=== PATIENT | female | born 1960 | race Caucasian/White ===

== ENCOUNTER → 2017-11-02 10:16 | Outpatient (CLI) | payer BC, SELFPAY ==
[2017-11-06 13:35] LABS: HPV Reflexed? NOT INDICATED
== END ==
PROVIDERS: Visit Provider Obstetrics & Gynecology
DX: Z12.4 Encounter for screening for malignant neoplasm of cervix (principal)
CPT/HCPCS: 88175; G0145

== ENCOUNTER → 2017-12-04 16:06 | Outpatient (CLI) | payer BC, SELFPAY ==
[2017-12-04 18:00] LABS: Free T3 2.5 pg/mL (2.18-3.98); T4 Free Direct 0.88 ng/dL (0.76-1.46); Thyroid Stim Hormone (TSH) 1.51 uIU/mL (0.358-3.74)
== END ==
PROVIDERS: Family Provider Family Medicine; PCP Family Medicine; Visit Provider Nurse Practitioner
DX: R53.82 Chronic fatigue, unspecified (principal); R53.81 Other malaise
CPT/HCPCS: 84439; 84443; 84481

== ENCOUNTER → 2018-11-14 14:28 | Outpatient (CLI) | payer BC, SELFPAY ==
[2017-12-04 14:52] VITALS: BMI 35.6
[2018-11-20 13:28] LABS: HPV HC, High Risk Negative (Negative)
== END ==
PROVIDERS: Visit Provider Obstetrics & Gynecology
DX: Z12.4 Encounter for screening for malignant neoplasm of cervix (principal)
CPT/HCPCS: 87624; 88175; G0145

== ENCOUNTER → 2025-07-04 | Outpatient (CLI) | payer BC, SELFPAY ==
--- OUTSIDE RECORDS SUMMARY | 2025-07-04 08:48 | XMS RPT_ITS | CCD ---
Author Organization [facility] Care Team Providers Care Bobbin Washer Name Role Phone Blanco Araiza MD Primary Care Provider TEODORA SHELTON, BLANCO Primary Care Physician [phone] [place] AMARO Attending Unavailable TEODORA SHELTON, BLANCO Primary Care Unavailable Blanco Araiza MD Primary Care Provider Blacno Araiza MD Primary Care Provider BLANCO ARAIZA Referring Unavailable BLANCO ARAIZA Primary Care Unavailable Haagen [employer].ROSAURA, Myrna Unavailable Suppan [employer].CYBER DEFENSE ANALYST, Sarai A Unavailable BLANCO ARAIZA Primary Care Unavailable MYRNA SHRESTHA Referring Unavailable ROD CABA Referring Unavailable BLANCO ARAIZA Primary Care Unavailable ROD CABA Attending Unavailable BLANCO ARAIZA Primary Care Unavailable BLANCO ARAIZA Primary Care Unavailable SELF Referring Unavailable BLANCO ARAIZA Primary Care Unavailable MYRNA SHRESTHA Attending Unavailable OSCAR HERZOG Attending Unavailable BLANCO ARAIZA Primary Care Unavailable SARAH COLE Referring Unavailable BLANCO ARAIZA Primary Care Unavailable MYRNA SHRESTHA Referring Unavailable BLANCO ARAIZA Primary Care Unavailable MYRNA SHRESTHA Referring Unavailable SARAH COLE Attending Unavailable ROD CABA Referring Unavailable ROD CABA Attending Unavailable BLANCO ARAIZA Primary Care Unavailable Allergies Allergy Classification Reported Allergen(s) Allergy Type Date of Onset Reaction(s) Facility HMG-CoA Reductase Inhibitors (statins) (1 source) atorvastatin Drug Allergy 2 Myalgia [facility] Work Phone: Opioid Agonists (1 source) Codeine Drug Allergy 7 Shortness of Breath [facility] Work Phone: (20 sources) Codeine; Translations: [codeine] Drug Allergy 7 Shortness of Breath, Dyspnea (finding) [facility] Work Phone: (20 sources) atorvastatin; Translations: [ATORVASTATIN] Drug Allergy 2 Myalgia [facility] Work Phone: Medications Current Medications Medication Drug Class(es) Dates Sig (Normalized) Sig (Original) [id number] 200 actuat albuterol 0.09 mg/actuat metered dose inhaler (20 sources) beta2-Adrenergic Agonist Start: 04-20-2021 take 2 puff(s) by inhalation every four hours as needed for wheezing albuterol HFA (PROVENTIL HFA, VENTOLIN HFA) 90 mcg/actuation inhaler INHALE 2 PUFFS INSTRUCTED EVERY 4 HOURS NEEDED FOR WHEEZING/SHORTNESS OF BREATH. 6.7 Each 5 04/20/2021 Active Comment on above: INHALE 2 PUFFS IN STRUCTED EVERY 4 HOURS NEEDED FOR WHEEZING/SHORTNESS OF BREATH. amoxicillin 875 mg oral tablet (1 source) Penicillin-class Antibacterial Start: 06-21-2022 End: 06-28-2022 take 1 tablet by mouth twice daily amoxicillin (AMOXIL) 875 mg tablet Indications: Otitis media with effusion, bilateral Take 1 tablet by mouth twice daily for 7 days. 14 tablet 0 06/21/2022 06/28/2022 Active Comment on above: Take 1 tablet by jayson th twice daily for 7 days. ascorbic acid 226 mg / cuprous oxide 0.8 mg / dl-alpha tocopheryl acetate 200 unt / lutein 5 mg / zinc oxide 34.8 mg oral capsule (1 source) Vitamin C Start: 03-03-2021 take 1 capsule by mouth once daily PreserVision AREDS Lutein oral capsule Dose = 2 cap(s), Oral, qDay, 0 Refill(s) Start Date: 03/03/21 Status: Ordered lisinopril 10 mg oral tablet (20 sources) Angiotensin Converting Enzyme Inhibitor Start: 03-11-2021 End: 11-10-2024 take 1 tablet by mouth once daily lisinopril (PRINIVIL) 10 mg tablet Indications: Essential hypertension Take 1 tablet by mouth once daily. 90 tablet 3 11/10/2024 Active Start: 05-08-2019 lisinopril 5 m g oral tablet Dose : 5 mg = 1 tab(s), Oral, Daily, 0 Refill(s) Start Date: 05/08/19 Status: Ordered Comment on above: Take 1 tablet by jayson once daily. meclizine hydrochloride 12.5 mg oral tablet (4 sources) Antiemetic Start: 11-23-19 End: 01-23-20 take 12.5-25 mg by mouth every six hours as needed meclizine (ANTIVERT) 12.5 mg tab Take 1-2 tablets by mouth every 6 hours as needed (dizziness). 40 tablet 0 11/23/2023 01/23/2024 Discontinued meloxicam 15 mg oral tablet (7 sources) Nonsteroidal Anti-inflammatory Drug Start: 02-11-20 take 1 tablet by mouth once daily meloxicam (MOBIC) 15 mg tablet Indications: Shoulder impingement , Nontraumatic tear of right rotator cuff, unspecified tear extent , Chronic right shoulder pain TAKE 1 TABLET BY MOUTH EVERY DAY 30 tablet 1 02/10/2025 Active Start: 11-26-2024 End: 12-15-2024 take 1 tablet by mouth once daily meloxicam (MOBIC) 15 mg tablet Indications: Shoulder impingement , Nontraumatic tear of right rotator cuff, unspecified tear extent , Chronic right shoulder pain Take 1 tablet by mouth once daily. 30 tablet 1 12/15/2024 Active rosuvastatin calcium 5 mg oral tablet (14 sources) HMG-CoA Reductase Inhibitor Start: 01-23-2024 End: 12-10-2025 take 1 tablet by mouth once daily at bedtime rosuvastatin (CRESTOR) 5 mg tablet Indications: Mixed hyperlipidemia Take 1 tablet by mouth daily at bedtime. 90 tablet 3 12/10/2024 12/10/2025 Active selenium sulfide 25 mg/ml medicated shampoo (20 sources) Start: 03-11-2021 End: 01-23-2024 selenium sulfide 2.5 % lotn Indications: Eczema, unspecified type Apply 1 application to affected area once daily. 118 mL 5 01/23/2024 Active Comment on above: Apply 1 application to affected area once daily. Completed/Discontinued Medications Medication Drug Class(es) Dates Sig (Normalized) Sig (Original) atorvastatin 10 mg oral tablet (3 sources) HMG-CoA Reductase Inhibitor Start: 03-10-2022 End: 09-06-2022 take 1 tablet by mouth once daily at bedtime for hyperlipidemia atorvastatin (LIPITOR) 10 mg tablet Indications: Mixed hyperlipidemia Take 1 tablet by mouth daily at bedtime. For cholesterol. 90 tablet 1 03/10/2022 04/12/2022 Discontinued Comment on above: Take 1 tablet by jayson th daily at bedtime. For cholesterol. 24 hr buPROPion hydrochloride 150 mg extended release oral tablet (20 sources) Aminoketone Start: 01-23-2024 End: 12-10-2024 take 1 tablet by mouth once daily buPROPion XL (WELLBUTRIN XL) 150 mg 24 hr tablet Indications: Depression, unspecified depression type Take 1 tablet by mouth once daily. 90 tablet 3 01/23/2024 12/10/2024 Discontinued (Other) Start: 03-10-2022 End: 09-08-2022 take 1 tablet by mouth once daily buPROPion XL (WELLBUTRIN XL) 150 mg 24 hr tablet Indications: Anxiety Take 1 tablet by mouth once daily. 90 tablet 3 05/08/2022 09/08/2022 Discontinued Comment on above: Take 1 tablet by jayson th once daily. ibuprofen 200 mg oral tablet (1 source) Nonsteroidal Anti-inflammatory Drug End: take 1 tablet by mouth every six hours as needed ibuprofen (MOTRIN) 200 mg tablet Take 200 mg by mouth every 6 hours as needed for Pain (Pt. takes 3-4 tablets when she takes, and takes only once daily). 0 03/10/2022 Discontinued Comment on above: Take 200 mg by mouth every 6 hours as needed for Pain (Pt. takes 3-4 tablets when she takes, and takes only once daily). 24 hr nicotine 0.875 mg/hr transdermal system (12 sources) Cholinergic Nicotinic Agonist Start: End: apply 1 dose transdermal route every twenty-four hours nicotine (NICODERM) 21 mg/24 hr Indications: Tobacco abuse Apply 1 Patch as directed every 24 hours. 30 Patch 0 05/11/2022 09/08/2022 Discontinued Comment on above: Apply 1 Patch as dir ected every 24 hours. predniSONE 10 mg oral tablet (1 source) Start: End: predniSONE (DELTASONE) 10 mg tablet Take 4 tabs daily for 3 days, then 2 tabs daily for 3 days, then 1 tab daily for 3 days with food. 21 tablet 0 03/29/2021 03/10/2022 Discontinued (Course of therapy completed) Comment on above: Take 4 tabs daily fo r 3 days, then 2 tabs daily for 3 days, then 1 tab daily for 3 days with food. tirzepatide (MOUNJARO) 2.5 mg/0.5 mL pen injector (1 source) Start: End: inject 2.5 mg by subcutaneous injection every week tirzepatide (MOUNJARO) 2.5 mg/0.5 mL pen injector Indications: Weight gain , Obesity, Class II, BMI 35-39.9 Inject 2.5 mg subcutaneously one time a week. 2 mL 11 07/16/2023 11/23/2023 Discontinued Problems Active Problems Problem Classification Problem Date Documented Date Episodic/Chronic Allergic reactions (3 sources) Eczema; Translations: [Dermatitis, unspecified] Episodic Anxiety disorders (2 sources) Anxiety; Translations: [Anxiety disorder, unspecified] Chronic Disorders of lipid metabolism (20 sources) Mixed hyperlipidemia; Translations: [Mixed hyperlipidemia] Onset: 02-22-2018 Chronic Essential hypertension (20 sources) Essential hypertension; Translations: [Essential (primary) hypertension] Onset: 11-03-2016 Chronic Menopausal disorders (20 sources) Menopausal symptom; Translations: [Menopausal and female climacteric states] Onset: 09-08-2022 09-08-2022 Chronic Mood disorders (1 source) Depressive disorder; Translations: [Depression, unspecified depression type] 01-23-2024 Chronic Other connective tissue disease (3 sources) Nontraumatic rotator cuff tear; Translations: [Unspecified rotator cuff tear or rupture of right shoulder, not specified as traumatic] 11-17-2024 Episodic Other connective tissue disease (1 source) Tear of right rotator cuff; Translations: [Unspecified rotator cuff tear or rupture of right shoulder, not specified as traumatic] 12-10-2024 Episodic Other nervous system disorders (1 source) Other chronic pain; Translations: [Chronic right shoulder pain] Onset: 11-27-2024 Chronic Other non-traumatic joint disorders (3 sources) Disorder of shoulder; Translations: [Other specified joint disorders, unspecified shoulder] 11-17-2024 Episodic Other non-traumatic joint disorders (2 sources) Chronic pain of right upper limb; Translations: [Pain in right shoulder] 11-17-2024 Episodic Other nutritional; endocrine; and metabolic disorders (1 source) Obese class II; Translations: [Obesity, unspecified] 11-23-2023 Chronic Other screening for suspected conditions (not mental disorders or infectious disease) (20 sources) Patient encounter status; Translations: [Encounter for other screening for malignant neoplasm of breast] Onset: 02-08-2023 Episodic Otitis media and related conditions (1 source) Otitis media; Translations: [Unspecified nonsuppurative otitis media, bilateral] Episodic Residual codes; unclassified (2 sources) Tobacco user; Translations: [Tobacco use] Episodic Unclassified (4 sources) Patient encounter status 02-08-2023 Unclassified (1 source) Chronic pain of right upper limb 11-17-2024 Past or Other Problems Problem Classification Problem Date Documented Date Episodic/Chronic Biliary tract disease (16 sources) Gallstone; Translations: [Calculus of gallbladder without cholecystitis without obstruction] Onset: 05-31-2007 Resolved: 11-03-2016 11-03-2016 Episodic Conditions associated with dizziness or vertigo (4 sources) Dizziness; Translations: [Dizziness and giddiness] Onset: 01-24-2024 11-23-2023 Episodic Malaise and fatigue (1 source) Other fatigue; Translations: [Other fatigue] Onset: 09-01-2024 Episodic Other connective tissue disease (2 sources) Unspecified rotator cuff tear or rupture of right shoulder, not specified as traumatic; Translations: [Tear of right rotator cuff, unspecified tear extent, unspecified whether traumatic] Onset: 11-27-2024 Episodic Other non-traumatic joint disorders (1 source) Other specified joint disorders, unspecified shoulder; Translations: [Shoulder impingement] Onset: 11-27-2024 Episodic Other non-traumatic joint disorders (1 source) Pain in right shoulder; Translations: [Chronic right shoulder pain] Onset: 11-27-2024 Episodic Sprains and strains (20 sources) Sprain of medial collateral ligament of right knee, initial encounter; Translations: [Sprain of medial collateral ligament of knee] Onset: 09-19-2016 Resolved: 02-22-2018 02-22-2018 Episodic Results Test Name Value Interpretation Reference Range Facility [id number] 04-30-2025 [id number] HNO ID: [id number] Author: JAJA HOLT RN Service: ? Author Type: Registered Nurse Type: [id number] Filed: 04/30/2025 14:02 Note Text: Post procedure discharge instructions, copy of report, and appointment reminder if applicable given to patient. All questions answered and patient verbalizes understanding. Jaja Holt RN [facility] Colonoscopyon 04-30-2025 Colonoscopy Nacho [facility] Gastrointestinal Endoscopy Patient Name: Desirae Franklin Procedure Date: 04/30/2025 11:57 AM Date of : 1960 Admit Type: Outpatient Age: 64 Gender: Female Note Status: Finalized Procedure: Colonoscopy Indications: Screening for colorectal malignant neoplasm Providers: Oscar Herzog MD Patient Profile: This is a 64 year old female. Refer to note in patient chart for documentation of history and physical. Last Colonoscopy: May 2015. Referring Physician: Sarah Cole (Referring MD) Medicines: Fentanyl 150 micrograms IV, Midazolam 8 mg IV, Diphenhydramine 50 mg IV Complications: No immediate complications. Estimated blood loss: None. Requesting Provider: Procedure: Pre-Anesthesia Assessment: - Prior to the procedure, a History and Physical was performed, and patient medications and allergies were reviewed. The patient's tolerance of previous anesthesia was also reviewed. The risks and benefits of the procedure and the sedation options and risks were discussed with the patient. All questions were answered, and informed consent was obtained. Prior Anticoagulants: The patient has taken no anticoagulant or antiplatelet agents. ASA Grade Assessment: III - A patient with severe systemic disease. After reviewing the risks and benefits, the patient was deemed in satisfactory condition to undergo the procedure. After I obtained informed consent, the scope was passed under direct vision. Throughout the procedure, the patient's blood pressure, pulse, and oxygen saturations were monitored continuously.The colonoscopy was performed with moderate difficulty due to a tortuous colon. Successful completion of the procedure was aided by increasing the dose of sedation medication. The quality of the bowel preparation was fair. The ileocecal valve, appendiceal orifice, and rectum were photographed. The Colonoscope was introduced through the anus and advanced to the cecum, identified by appendiceal orifice and ileocecal valve. The patient tolerated the procedure poorly due to the patient's excessive discomfort during the procedure. Moderate Sedation: The administration of moderate sedation was initiated at 12:10. Moderate (conscious) sedation was personally administered by the endoscopist. The following parameters were monitored: oxygen saturation, heart rate, blood pressure, respiratory rate, EKG, adequacy of pulmonary ventilation, and response to care. Total physician intraservice time was 32 minutes. Findings: The perianal and digital rectal examinations were normal. Non-bleeding internal hemorrhoids were found during retroflexion. The hemorrhoids were mild and small. The exam was otherwise without abnormality. Impression: - Preparation of the colon was fair. - Non-bleeding internal hemorrhoids. - The examination was otherwise normal. - No specimens collected. Recommendation: - Patient has a contact number available for emergencies. The signs and symptoms of potential delayed complications were discussed with the patient. Return to normal activities tomorrow. Written discharge instructions were provided to the patient. - Resume previous diet. - Continue present medications. - Repeat colonoscopy in 10 years for screening purposes. - Return to primary care physician PRN. Procedure Code(s): --- Professional --- 27604, Colonoscopy, flexible; diagnostic, including collection of specimen(s) by brushing or washing, when performed (separate procedure) G0500, Moderate sedation services provided by the same physician or other qualified health day care supervisor performing a gastrointestinal endoscopic service that sedation supports, requiring the presence of an independent trained observer to assist in the monitoring of the patient's level of consciousness and physiological status; initial 15 minutes of intra-service time; patient age 5 years or older (additional time may be reported with 31782, as appropriate) 37992, Moderate sedation; each additional 15 minutes intraservice time Diagnosis Code(s): --- Professional --- Z12.11, Encounter for screening for malignant neoplasm of colon K64.8, Other hemorrhoids CPT copyright 2020 [employer]. All rights reserved. The codes documented in this report are preliminary and upon collections rep review may be revised to meet current compliance requirements. Attending Participation: I personally performed the entire procedure. Scope In: 12:16:36 PM Scope Out: 12:42:12 PM MD Oscar Patterson MD 04/30/2025 12:47:57 PM This report has been signed electronically by Oscar Herzog MD Number of Addenda: 0 Note Initiated On: 04/30/2025 11:57 AM Estimated Blood Loss: Estimated blood loss: none. [facility] HISTORY PHYSICALon HISTORY PHYSICAL HNO ID: [id number] Author: OSCAR HERZOG MD Service: General Surgery Author Type: Physician Type: H&P Filed: 04/30/2025 12:01 Note Text: HISTORY AND PHYSICAL Desirae Franklin : 1960 REFERRING PHYSICIAN: Myrna Shrestha [address] [facility] [address] CHIEF COMPLAINT: Patient presents with: Consult: Due for repeat colonoscopy HPI: Desirae is a 64 year old female referred for endoscopy. Desirae notes due for screening colonoscopy. Desirae denies abdominal pain. Desirae denies diarrhea. Desirae denies constipation. Desirae denies a change in bowel habits. Desirae denies melena. Desirae denies bright red blood per rectum. Desirae denies family history of colon issues. Desirae notes heartburn. -using Tums with relief Desirae denies dysphagia. Desirae's medical history is significant for HLD,HTN,obesity and anxiety. She denies CP, SOB, dizziness, palpitations, syncope, edema, recent hospitalizations Desirae has undergone prior endoscopy. Last colonoscopy was 05/[address] Huffman at [facility]. Sedation: Midazolam 8 mg IV, Fentanyl 100 micrograms IV Impression: - The entire examined colon is normal on direct and retroflexion views. - No specimens collected. CURRENT MEDICATIONS Current Outpatient Medications Medication Sig rosuvastatin (CRESTOR) 5 mg tablet Take 1 tablet by mouth daily at bedtime. lisinopril (PRINIVIL) 10 mg tablet Take 1 tablet by mouth once daily. albuterol HFA (PROVENTIL HFA, VENTOLIN HFA) 90 mcg/actuation inhaler INHALE 2 PUFFS INSTRUCTED EVERY 4 HOURS NEEDED FOR WHEEZING/SHORTNESS OF BREATH. peg 3350-Electrolytes (GOLYTELY) 236-22.74-6.74 -5.86 gram suspension Refer to printed prep instructions from your provider. meloxicam (MOBIC) 15 mg tablet TAKE 1 TABLET BY MOUTH EVERY DAY selenium sulfide 2.5 % lotn Apply 1 application to affected area once daily. No current facility-administered medications for this visit. ALLERGIES: Atorvastatin and Codeine PAST MEDICAL HISTORY PAST MEDICAL HISTORY Diagnosis Date Anxiety Essential (primary) hypertension Essential hypertension 11/03/2016 GERD (gastroesophageal reflux disease) Mixed hyperlipidemia NEGATIVE MEDICAL HISTORY Snoring Tear of right rotator cuff, unspecified tear extent, unspecified whether traumatic Tobacco use disorder PAST SURGICAL HISTORY PAST SURGICAL HISTORY Procedure Laterality Date COLONOSCOPY FLX DX W/COLLJ SPEC WHEN PFRMD 05/21/15 normal - 10 year follow up LAPS SURG CHOLECYSTECTOMY W/CHOLANGIOGRAPHY 05/04/2007 Normal IOC OVARIAN CYSTECTOMY 1994 ? uterine fibroid REDUCTION OF LARGE BREAST 2001 Breast reduction - bilateral FAMILY HISTORY FAMILY HISTORY Problem Relation Age of Onset Cancer Maternal Grandmother lung Diabetes Father Diabetes Maternal Grandfather Ischemic Heart Disease Father [SOCIAL HISTORY] [SOCIAL HISTORY] Social History Tobacco Use Smoking status: Every Day Current packs/day: 0.50 Average packs/day: 0.5 packs/day for 25.0 years (12.5 ttl pk-yrs) Types: Cigarettes Smokeless tobacco: Never Tobacco comments: quit for 2 years, started back up 5 years ago. 05/23/19 Vaping Use Vaping status: Never Used Substance Use Topics Alcohol use: Yes Alcohol/week: 3.0 standard drinks of alcohol Types: 3 Glasses of Wine (5oz) per week Drug use: No REVIEW OF SYMPTOMS: REVIEW OF SYSTEMS: General: The patient denies fatigue, denies weight loss, + weight gain, denies feeling hot, and feelings of cold. Eyes: The patient denies glaucoma, + eye injury/surgery, + glasses or contacts. Ear/Nose/Throat: The patient + allergies, denies hayfever, denies ear infections, and denies bloody noses. Cardiovascular: The patient denies chest pain, denies heart disease, + high blood pressure, + high cholesterol, and denies poor circulation. Respiratory: The patient denies tuberculosis, denies pneumonia, denies frequent cough, denies shortness of breath, and denies coughing up blood. Gastrointestinal: The patient denies difficulty swallowing, denies acid reflux, denies ulcers, denies jaundice/hepatitis, denies gallbladder problems, denies vomiting, denies black or tarry stools, denies hemorrhoids, denies bleeding from rectum, denies diverticulitis, denies constipation, denies diarrhea, denies loss of stool control, and denies hernias. Kidney/Bladder: The patient denies kidney stones, denies urine infections, and denies bloody urine. Skin: The patient denies a history of skin cancer, denies bleeding/changing moles, and denies a history of skin rash. Neurologic: The patient denies a history of epilepsy/convulsions, denies headaches, denies head/spinal injuries, and denies stroke/TIA. Psychiatric: The patient denies psychiatric medications, denies depression, and denies voices. Endocrine: The patient denies thyroid disorders, denies diabetes, and denies hormonal problems. Hematologic: The patient d (more content not included)... [facility] DANISH SCREENING W TOMOon 04-20 DANISH SCREENING W MATT * * *Final Report* * * DATE OF EXAM: Apr 20 2025 10:26AM W [id number] - DANISH SCREENING W MATT / PROCEDURE REASON: Visit for screening mammogram * * * * Physician Interpretation * * * * RESULT: [place] [address] #[id number] - DANISH SCREENING W MATT HISTORY: 64 year-old patient presents for screening. Patient is asymptomatic in both breasts. Patient states no personal history of breast cancer. The patient has a family history of breast cancer. COMPARISON STUDIES: The present examination has been compared to prior imaging studies dated 03/17/2021 (mammogram), 03/31/2022 (mammogram), 04/02/2023 (mammogram) and 04/04/2024 (mammogram). MAMMOGRAM TECHNIQUE: The study was acquired using full field digital technology and interpreted from soft copy. Digital Breast Tomosynthesis (DBT) images were obtained and used to assist in the interpretation of this examination. MAMMOGRAM FINDINGS: There are scattered areas of fibroglandular density. There are post-reduction changes in both breasts. There are no significant interval changes. No suspicious masses, calcifications or other abnormalities are seen in either breast. IMPRESSION: There is no mammographic evidence of malignancy. Routine screening mammogram is recommended. Annual mammogram will be due in 1 year. BI-RADS Category 2: Benign RISK: Based on the Tyrer-Cuzick (TC) risk assessment model, this patient has a 8.2% lifetime risk of developing breast cancer, meaning they are at average risk for developing breast cancer. However, this is only an estimate based on available history provided on the patient's questionnaire. We encourage all patients to talk with their providers about these results, further recommendations for managing breast health, and appropriate supplemental screening options if the patient has dense breast tissue. Interpreting Radiologist: Yudi Reyes M.D. Electronically signed on: 04/25/2025 Biomedical Engineering Professor: YULIYA Transcribe Date/Time: Apr 20 2025 10:08A Dictated by: YUDI REYES MD This examination was interpreted and the report reviewed and electronically signed by: YUDI REYES MD on Apr 25 2025 10:10AM EST [id number] [facility] CNOVon 03-26-2025 CNOV Office Visit (GENSWS ) DESIRAE FRANKLIN ([id number]) 1960 F Date Time Provider Department 03/26/25 1:00 PM SARAH COLE GENDENNISS During your visit today, we recorded the following information about you: Pulse Respiration Blood pressure Weight 70/minute 14/minute 145/85 91.2 kg Sarah Cole APRN.CNP 03/26/2025 1:36 PM Signed HISTORY AND PHYSICAL Desirae Franklin : 1960 REFERRING PHYSICIAN: Myrna Flores0 [facility] [address] CHIEF COMPLAINT: Patient presents with: Consult: Due for repeat colonoscopy HPI: Desirae is a 64 year old female referred for endoscopy. Desirae notes due for screening colonoscopy. Desirae denies abdominal pain. Desirae denies diarrhea. Desirae denies constipation. Desirae denies a change in bowel habits. Desirae denies melena. Desirae denies bright red blood per rectum. Desirae denies family history of colon issues. Desirae notes heartburn. -using Tums with relief Desirae denies dysphagia. Desirae's medical history is significant for HLD,HTN,obesity and anxiety. She denies CP, SOB, dizziness, palpitations, syncope, edema, recent hospitalizations Desirae has undergone prior endoscopy. Last colonoscopy was 05/[address] Huffman at [facility]. Sedation: Midazolam 8 mg IV, Fentanyl 100 micrograms IV Impression: - The entire examined colon is normal on direct and retroflexion views. - No specimens collected. Current Outpatient Medications Medication Sig rosuvastatin (CRESTOR) 5 mg tablet Take 1 tablet by mouth daily at bedtime. lisinopril (PRINIVIL) 10 mg tablet Take 1 tablet by mouth once daily. albuterol HFA (PROVENTIL HFA, VENTOLIN HFA) 90 mcg/actuation inhaler INHALE 2 PUFFS INSTRUCTED EVERY 4 HOURS NEEDED FOR WHEEZING/SHORTNESS OF BREATH. peg 3350-Electrolytes (GOLYTELY) 236-22.74-6.74 -5.86 gram suspension Refer to printed prep instructions from your provider. meloxicam (MOBIC) 15 mg tablet TAKE 1 TABLET BY MOUTH EVERY DAY selenium sulfide 2.5 % lotn Apply 1 application to affected area once daily. No current facility-administered medications for this visit. ALLERGIES: Atorvastatin and Codeine PAST MEDICAL HISTORY Diagnosis Date Anxiety Essential (primary) hypertension Essential hypertension 11/03/2016 GERD (gastroesophageal reflux disease) Mixed hyperlipidemia NEGATIVE MEDICAL HISTORY Snoring Tear of right rotator cuff, unspecified tear extent, unspecified whether traumatic Tobacco use disorder PAST SURGICAL HISTORY Procedure Laterality Date COLONOSCOPY FLX DX W/COLLJ SPEC WHEN PFRMD 05/21/15 normal - 10 year follow up LAPS SURG CHOLECYSTECTOMY W/CHOLANGIOGRAPHY 05/04/2007 Normal [facility] OVARIAN CYSTECTOMY 1994 ? uterine fibroid REDUCTION OF LARGE BREAST 2001 Breast reduction - bilateral FAMILY HISTORY Problem Relation Age of Onset Cancer Maternal Grandmother lung Diabetes Father Diabetes Maternal Grandfather Ischemic Heart Disease Father SOCIAL HISTORY[1] REVIEW OF SYMPTOMS: REVIEW OF SYSTEMS: General: The patient denies fatigue, denies weight loss, + weight gain, denies feeling hot, and feelings of cold. Eyes: The patient denies glaucoma, + eye injury/surgery, + glasses or contacts. Ear/Nose/Throat: The patient + allergies, denies hayfever, denies ear infections, and denies bloody noses. Cardiovascular: The patient denies chest pain, denies heart disease, + high blood pressure, + high cholesterol, and denies poor circulation. Respiratory: The patient denies tuberculosis, denies pneumonia, denies frequent cough, denies shortness of breath, and denies coughing up blood. Gastrointestinal: The patient denies difficulty swallowing, denies acid reflux, denies ulcers, denies jaundice/hepatitis, denies gallbladder problems, denies vomiting, denies black or tarry stools, denies hemorrhoids, denies bleeding from rectum, denies diverticulitis, denies constipation, denies diarrhea, denies loss of stool control, and denies hernias. Kidney/Bladder: The patient denies kidney stones, denies urine infections, and denies bloody urine. Skin: The patient denies a history of skin cancer, denies bleeding/changing moles, and denies a history of skin rash. Neurologic: The patient denies a history of epilepsy/convulsions, denies headaches, denies head/spinal injuries, and denies stroke/TIA. Psychiatric: The patient denies psychiatric medications, denies depression, and denies voices. Endocrine: The patient denies thyroid disorders, denies diabetes, and denies hormonal problems. Hematologic: The patient denies a history of bruising, denies bleeding, and denies anemia. Infections: The patient denies a history of measles and mumps, denies rheumatic fever, and denies sexually transmitted diseases. Musculoskeletal: The patient denies back pain/injury, denies back problems, denies sciati (more content not included)... Normal [facility] CNPMelisa 03-10-2025 CNPN Telephone ([employer]) DESIRAE FRANKLIN ([id number]) 1960 F Date Time Provider Department 03/10/25 SARAH COLE [employer] During your visit today, we recorded the following information about you: Sarah Cole APRN.CYBER DEFENSE ANALYST 03/10/2025 3:02 PM Signed Please reschedule patient. I am out of the office during her current appt time. Thank you, Sarah Cole APRN.CYBER DEFENSE ANALYST Allergies As of Date: 03/10/2025 Noted Allergy Reaction ATORVASTATIN 04/26/2022 17 - Myalgia CODEINE 05/31/2007 12 - Shortness of Breath Date Reviewed: 12/30/2024 Reviewed by: Rod Caba MD - Fully Assessed Reason for Visit: Appointment [186] Prescriptions as of 03/13/2025 - meloxicam (MOBIC) 15 mg tablet TAKE 1 TABLET BY MOUTH EVERY DAY - rosuvastatin (CRESTOR) 5 mg tablet Take 1 tablet by mouth daily at bedtime. - lisinopril (PRINIVIL) 10 mg tablet Take 1 tablet by mouth once daily. - selenium sulfide 2.5 % lotn Apply 1 application to affected area once daily. - albuterol HFA (PROVENTIL HFA, VENTOLIN HFA) 90 mcg/actuation inhaler INHALE 2 PUFFS INSTRUCTED EVERY 4 HOURS NEEDED FOR WHEEZING/SHORTNESS OF BREATH. Problem List As Of Date 03/10/2025 Noted Resolved Calculus of gallbladder without mention of chol*05/31/2007 11/03/2016 Sprain of medial collateral ligament of right k*09/19/2016 02/22/2018 Sprain of medial collateral ligament of left kn*09/19/2016 02/22/2018 Essential hypertension [I10] 11/03/2016 Mixed hyperlipidemia [E78.2] 02/22/2018 Menopausal symptom [N95.1] 09/08/2022 Breast cancer screening [Z12.39] 07/16/2023 Diagnosed: 07/16/2023 Encounter Status:Closed by SARAH COLE on 03/13/25 [facility] Ratna 12-15-2024 CNOV Office Visit (ORTHWS ) DESIRAE FRANKLIN ([id number]) 1960 F Date Time Provider Department 12/15/24 11:30 AM ROD CABA During your visit today, we recorded the following information about you: Rod Cbaa MD 12/31/2024 12:07 AM Signed Rod Caba MD Department of Orthopaedics Orthopaedics [facility] [address] Dept: [phone] Dept December 31, 2024 CHIEF COMPLAINT: Results - Mri of the Right Shoulder HPI Desirae Franklin is a 63-year-old female presenting for follow-up on a partial rotator cuff tear. Desirae reports persistent shoulder pain due to a partial rotator cuff tear, which has been ongoing for over a decade. She recently resumed taking meloxicam 3 weeks ago, which was initially prescribed 2.5 years ago for foot pain, and notes significant improvement in her shoulder pain since restarting the medication. She denies any new symptoms or changes in her condition. ASSESSMENT: M25.819 Shoulder impingement (primary encounter diagnosis) M75.101 Nontraumatic tear of right rotator cuff, unspecified tear extent M25.511, G89.29 Chronic right shoulder pain 1. Shoulder impingement (M25.819) Nontraumatic tear of right rotator cuff, unspecified tear extent (M75.101) Chronic right shoulder pain (M25.511) MRI reveals a partial thickness tear of the rotator cuff with associated inflammation. No significant progression in arthritis or bone spurs. No evidence of muscle atrophy. Patient experiences chronic shoulder pain, currently managed with meloxicam, which has provided relief. - Continue meloxicam daily; transmitted a new prescription to [facility]. - Discussed potential for corticosteroid injection if pain exacerbates. - Educated patient on the nature of the partial tear and the minimal impact of bone spurs on current symptoms. 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 - Ordered standing lab work to monitor renal function and CBC in 3-4 months if meloxicam is used long-term; patient to repeat labs every 6 months thereafter. - Patient understands and agrees with the treatment plan. Will continue to monitor patient for Shoulder impingement (primary encounter diagnosis) Nontraumatic tear of right rotator cuff, unspecified tear extent Chronic right shoulder pain, patient to schedule visit as per follow up discussed. OBJECTIVE: Ms. Desirae Franklin is a pleasant 64 year old in no apparent distress. Gen:LMP 08/23/2016 nl development, obese, no deformities ENT: Normocephalic, normal hearing, moist mucosa CV: Pulses:Radial= 2+ and symmetric, capillary refill < 2 secs, no peripheral edema/varicosities Skin: no rash, bruising or lesions. Good turgor. Psych: cooperative and appropriate, alert and oriented x 3, good mood and affect. Musculoskeletal: Supple range of motion of the cervical spine without pain. Spurling signs are negative. No atrophy of the deltoid and shoulder musculature. Right shoulder is nontender to palpation over the SC joint, clavicle and AC joint. mild tenderness to palpation over the posterior shoulder, Positive tenderness to palpation over the anterior lateral corner of the shoulder and greater tuberosity. nonpainful at the bicipital groove and coracoid. Active range of motion is 130 of forward elevation, 80 external rotation, and internal rotation to the low lumbar. Passive range of motion is symmetrical, limited by some pain, respectively, respectively. No laxity with anterior and posterior stress. Positive Neer and Maldonado impingement signs. 4/5 strength with supraspinatus, infraspinatus and subscapularis. Sensation is intact in the axillary, radial, median and ulnar nerve distribution IMAGING: Labs: Tests: Imaging: - Shoulder MRI: Partial-thickness rotator cuff tear with mild arthritic changes and a small subacromial spur; no muscle atrophy observed. Stable compared to previous imaging. - Shoulder MRI: Partial-thickness rotator cuff tear. Supporting Subjective Information Below: Past Medical History: PAST MEDICAL HISTORY Diagnosis Date Anxiety Essential (primary) hypertension Essential hypertension 11/03/2016 GERD (gastroesophageal reflux disease) Mixed hyperlipidemia NEGATIVE MEDICAL HISTORY Snoring Tear of right rotator cuff, unspecified tear extent, unspecified whether traumatic Tobacco use disorder Past Surgical History: PAST SURGICAL HISTORY Procedure Laterality Date COLONOSCOPY FLX DX W/COLLJ SPEC WHEN PFRMD 05/21/15 normal - 10 year follow up LAPS SURG CHOLECYSTECTOMY W/CHOLANGIOGRAPHY 05/04/2007 Normal [facility] OVARIAN CYSTECTOMY 1994 ? uterine fibroid REDUCTION OF LARGE BREAST 2002 Breast reduction - bilateral Family History: FAMILY HISTORY Problem Relation Age of Onset Cancer Maternal Grand (more content not included)... Normal [facility] Roberto 12-12-2024 CNPN Telephone ([employer]) NOEMIDESIRAE L ([id number]) 1960 F Date Time Provider Department 12/12/24 SARAH COLE GENS During your visit today, we recorded the following information about you: Jane Alamo LPN 12/12/2024 11:02 AM Signed Called patient. NO answer- left voicemail and [employer] message sent. ROMULO Goodman Stephanie 12/12/2024 4:43 PM Signed Spoke with patient and rescheduled to 03/27/25. Allergies As of Date: 12/12/2024 Noted Allergy Reaction ATORVASTATIN 04/26/2022 17 - Myalgia CODEINE 05/31/2007 12 - Shortness of Breath Date Reviewed: 12/10/2024 Reviewed by: Kang Grace LPN - Fully Assessed Reason for Visit: Appointment [186] Prescriptions as of 12/12/2024 - meloxicam (MOBIC) 15 mg tablet - rosuvastatin (CRESTOR) 5 mg tablet Take 1 tablet by mouth daily at bedtime. - lisinopril (PRINIVIL) 10 mg tablet Take 1 tablet by mouth once daily. - selenium sulfide 2.5 % lotn Apply 1 application to affected area once daily. - albuterol HFA (PROVENTIL HFA, VENTOLIN HFA) 90 mcg/actuation inhaler INHALE 2 PUFFS INSTRUCTED EVERY 4 HOURS NEEDED FOR WHEEZING/SHORTNESS OF BREATH. Problem List As Of Date 12/12/2024 Noted Resolved Calculus of gallbladder without mention of chol*05/31/2007 11/03/2016 Sprain of medial collateral ligament of right k*09/19/2016 02/22/2018 Sprain of medial collateral ligament of left kn*09/19/2016 02/22/2018 Essential hypertension [I10] 11/03/2016 Mixed hyperlipidemia [E78.2] 02/22/2018 Menopausal symptom [N95.1] 09/08/2022 Breast cancer screening [Z12.39] 07/16/2023 Diagnosed: 07/16/2023 Encounter Status:Closed by TRACY EATON on 12/12/24 Normal [facility] Lipid 1996 panelon 5 Cholesterol [Mass/Vol] 143 mg/dL Normal <200 [facility] Comment on above: Order Comment: Speci men Type: BLOOD SPECIMENOrdering Facility: [facility] Address: [address] [place] [address] Result Comment: <200 mg/dL, Desirable 200-239 mg/dL, Borderline high >239 mg/dL, High Performed By: #### 2 4331-1 ####[facility] LABIA [id number] [address] STATES OF [facility] Cholesterol in HDL [Mass/Vol] 47 mg/dL Normal >39 [facility] Comment on above: Order Comment: Amrita flores Type: BLOOD SPECIMENOrdering Facility: [facility] Address: [address] [place] [address] Result Comment: 40-5 9 mg/dL, Acceptable >59 mg/dL, High: Negative risk factor for coronary heart disease <40 mg/dL, Low: Positive risk factor for coronary heart disease Performed By: #### 2 4331-1 ####[facility]IA [id number] [address] [place] Cholesterol in LDL [Mass/Vol] 77 mg/dL Normal <100 [facility] Comment on above: Order Comment: Amrita flores Type: BLOOD SPECIMENOrdering Facility: [facility] Address: [address] [place] [address] Result Comment: <100 mg/dL, Optimal 100-129 mg/dL, Near optimal/above optimal 130-159 mg/dL, Borderline high 160-189 mg/dL, High >189 mg/dL, Very high Secondary prevention optimal LDL Cholesterol levels are recommended to be <70 mg/dL LDL cholesterol is calculated using the Roman-NIH equation. Performed By: #### 2 4331-1 ####[facility] [id number] [place] [address] [place] Cholesterol in LDL/Cholesterol in HDL [Mass ratio] 1.64 {ratio} Normal <2.54 [facility] Comment on above: Order Comment: Amrita flores Type: BLOOD SPECIMENOrdering Facility: [facility] Address: [address] [place] [address] Result Comment: Refe brigidce: 1. National Cholesterol Education Program ATP III Guideline At-A-Glance Quick Desk Reference: National Heart, Lung, and Blood [place]. National Institutes of Health. 2001: NIH Publication No. 01-3305. 2. An International Atherosclerosis Society position paper: global recommendations for the management of dyslipidemia: executive summary, Atherosclerosis. 2014: 232(2):410-413. Performed By: #### 2 4331-1 ####[facility]IA [id number] [place] [address] [place] Cholesterol in VLDL [Mass/Vol] 16 mg/dL Normal <30 [facility] Comment on above: Order Comment: Amrita flores Type: BLOOD SPECIMENOrdering Facility: [facility] Address: [address] [place] [address] Performed By: #### 2 4331-1 ####[facility] [id number] [place] [id number] [place] Cholesterol non HDL [Mass/Vol] 96 mg/dL Normal <130 [facility] Comment on above: Order Comment: Amrita sandra Type: BLOOD SPECIMENOrdering Facility: [facility] Address: [address] [place] [address] Result Comment: <130 mg/dL, Optimal 130-159 mg/dL, Near optimal/above optimal 160-189 mg/dL, Borderline high 190-219 mg/dL, High >219 mg/dL, Very high Secondary prevention optimal non HDL Cholesterol levels are recommended to be <100 mg/dL Performed By: #### 2 4331-1 ####[facility] LABCLIA [id number] [address] OF [place] Cholesterol.total/C holesterol in HDL [Mass ratio] 3.04 {ratio} Normal <5.10 [facility] Comment on above: Order Comment: Speci men Type: BLOOD SPECIMENOrdering Facility: [facility] Address: [address] [place] [address] Performed By: #### 2 4331-1 ####[facility]IA [id number] [address], [facility] FASTING TIME 12 hrs Normal [facility] Comment on above: Order Comment: Speci men Type: BLOOD SPECIMENOrdering Facility: [facility] Address: [address] [place] [address] Performed By: #### 2 4331-1 ####[facility] [id number] [address], [facility] [place] Triglyceride [Mass/Vol] 104 mg/dL Normal <150 [facility] Comment on above: Order Comment: Speci men Type: BLOOD SPECIMENOrdering Facility: [facility] Address: [address] [place] [address] Result Comment: <150 mg/dL, Normal 150-199 mg/dL, Borderline high 200-499 mg/dL, High >499 mg/dL, Very high Performed By: #### 2 4331-1 ####[facility]IA [id number] [address], [facility] [place] CNOVon 12-10-2024 CNOV Office Visit (FAMPWS ) DESIRAE FRANKLIN ([id number]) 1960 F Date Time Provider Department 12/10/24 9:20 AM MYRNA SHRESTHA During your visit today, we recorded the following information about you: Pulse Respiration Blood pressure Weight 65/minute 16/minute 130/88 89.8 kg Height 1.56 m Myrna Shrestha APRN.CNP 12/10/2024 10:00 AM Signed - Continue taking lisinopril each morning as prescribed. - Continue rosuvastatin (Crestor) for cholesterol; a refill has been sent to your pharmacy. - Start vitamin D 1,000 units by mouth once daily; during months with limited sun exposure you may increase to two tablets a day. - Complete a fasting lipid panel (cholesterol blood test); the lab order is in your chart--plan to fast if possible. - schedule w/ gen surg. - Schedule your next screening mammogram around April; the order is in your chart. - Get shingles vaccine. Health Promotion: - Eat healthy -- go to [employer] SRO.gov to get started - Have a yearly physical - Mammogram yearly after age 40 - Get at least 30 minutes of physical activity daily - Get at least 7 to 8 hours of sleep each night - Reach and maintain a healthy weight - Get help to quit or don't start smoking - Limit alcohol use to one drink or less - Do not use illegal drugs or misuse prescription drugs - Wear a helmet when riding a bike and wear protective gear for sports - Wear a seatbelt in cars and not text and drive - Wear sunscreen Myrna Shrestha APRN.CYBER DEFENSE ANALYST 12/10/2024 5:44 PM Signed This is a 63 year old female who presents today with: Desirae is a 63-year-old female with a history of HTN, hyperlipidemia, and anxiety, presenting for medication refills physical exam. HISTORY OF PRESENT ILLNESS: Medication Refills: - Missed appointment with Dr. Araiza in July due to personal circumstances. - Currently taking lisinopril and rosuvastatin. - Recently resumed meloxicam use. - Discontinued Wellbutrin. - Has an albuterol inhaler but has not used it in years. Shoulder Pain: - Chronic shoulder pain with a history of torn rotator cuff, bursitis, and bone spurs diagnosed 14 years ago. - Recent MRI performed last week; awaiting results. - Pain is severe enough to limit work to 3-4 hours a day. - Receives cortisone injections in the shoulder. - Pain disrupts sleep; Desirae is a side sleeper. - Following w/ ortho. Weight Management: - Currently 50 lbs overweight. - Previously took phentermine for weight loss but discontinued due to insomnia. - Tried compounded GLP-1 agonists for 3 weeks but stopped due to regulatory changes. - Reports fatigue attributed to being overweight. Tobacco Use: - Smokes approximately half a pack of cigarettes per day. - Previously quit for 2.5 years; plans to quit again by birthday on December [birth year]. - Expresses dislike for the smell of smoke on clothes and hands. Gastroesophageal Reflux Disease: - Experiences heartburn and indigestion frequently. - Uses Tums once or twice a week with immediate relief. - Sleeps with head elevated to manage symptoms. Anxiety: - History of anxiety, previously managed with Wellbutrin. - Reports increased irritability since discontinuing Wellbutrin, but no uncontrolled anxiety/depression. - Experiences dyspnea, attributed to smoking and anxiety. Preventive Care: - Last colonoscopy in May 2015. - Last mammogram on April 04 of the previous year. - Menopausal; experiences heat intolerance. - No history of abnormal Pap smears in the last 20 years. PAST MEDICAL HISTORY: PAST MEDICAL HISTORY Diagnosis Date Essential hypertension 11/03/2016 NEGATIVE MEDICAL HISTORY Snoring PAST SURGICAL HISTORY Procedure Laterality Date COLONOSCOPY FLX DX W/COLLJ SPEC WHEN PFRMD 05/21/15 normal - 10 year follow up LAPS SURG CHOLECYSTECTOMY W/CHOLANGIOGRAPHY 05/04/2007 Normal [facility] OVARIAN CYSTECTOMY 1994 ? uterine fibroid REDUCTION OF LARGE BREAST 2001 Breast reduction - bilateral ALLERGIES Atorvastatin and Codeine MEDICATIONS Current Outpatient Medications Medication Sig meloxicam (MOBIC) 15 mg tablet rosuvastatin (CRESTOR) 5 mg tablet Take 1 tablet by mouth daily at bedtime. lisinopril (PRINIVIL) 10 mg tablet Take 1 tablet by mouth once daily. selenium sulfide 2.5 % lotn Apply 1 application to affected area once daily. albuterol HFA (PROVENTIL HFA, VENTOLIN HFA) 90 mcg/actuation inhaler INHALE 2 PUFFS INSTRUCTED EVERY 4 HOURS NEEDED FOR WHEEZING/SHORTNESS OF BREATH. No current facility-administered medications for this visit. FAMILY HISTORY Problem Relation Age of Onset Cancer Maternal Grandmother lung Diabetes Father Diabetes Maternal Grandfather Ischemic Heart Disease Father Social History Tobacco Use Smoking status: Every Day Current packs/day: 0.50 Average packs/day: 0.5 packs/day for 25.0 years (12.5 ttl pk- (more content not included)... Normal [facility] MRI SHOULDER WO IVCON RTon 0 11-27-2024 MRI SHOULDER WO IVCON RT * * *Final Report* * * DATE OF EXAM: Nov 27 2024 8:40AM WR 0240 - MRI SHOULDER WO IVCON RT / PROCEDURE REASON: multiple diagnoses * * * * Physician Interpretation * * * * EXAMINATION: MRI SHOULDER WO IVCON RT HISTORY: Right shoulder pain. Impingement. TECHNIQUE: Routine non-contrast MRI of the shoulder. MQ: MRS_[id number] COMPARISON: None RESULT: TENDONS: Rotator cuff tendons: -Supraspinatus: High grade articular surface partial thickness (more than 50%) tear involving nearly the entire width of the tendon -Infraspinatus: Interstitial tearing at the myotendinous junction . -Subscapularis: Intact with tendinosis -Teres Minor: Intact tendon Biceps (Long head) Tendon: Intact , with normal course MUSCLES: Rotator cuff muscles: -Supraspinatus: Preserved bulk and no fatty changes. -Infraspinatus: Preserved bulk and no fatty changes. -Subscapularis: Preserved bulk and no fatty changes. -Teres Minor: Preserved bulk and no fatty changes. Other muscles: Preserved signal and bulk in the deltoid. JOINTS: Glenohumeral Joint: -Labrum: Glenoid labrum appears to be intact. -Cartilage: Mild cartilage loss/fissuring in the superior humeral head. Mild cartilage thinning the ventral glenoid. -Joint Fluid: No effusion . No synovitis. Acromioclavicular Joint: Mild hypertrophic degenerative changes which impresses on the bursal surface of the supraspinatus tendon. BONES AND MARROW: No evidence of fracture or suspicious bone marrow replacing process OTHER: Subdeltoid/Subacromial Bursa: Mild bursal distention Other: No other significant findings. Localizer images: Unremarkable. IMPRESSION: Articular sided tear of the supraspinatus tendon. Small interstitial tear of the infraspinatus tendon at the myotendinous junction. Mild glenohumeral cartilage loss. Hypertrophic acromioclavicular joint degenerative changes impresses upon the bursal surface of the supraspinatus tendon. There is mild subacromial subdeltoid bursitis. This may be seen with subacromial impingement. Biomedical Engineering Professor: ELIZA Transcribe Date/Time: Nov 27 2024 8:14P Dictated by : DEEPIKA ROSS DO This examination was interpreted and the report reviewed and electronically signed by: DEEPIKA ROSS DO on Nov 27 2024 8:19PM EST [id number] Normal [facility] CNOVon 11-17-2024 CNOV Office Visit (ORTHWS ) DESIRAE FRANKLIN ([id number]) 1960 F Date Time Provider Department 11/17/24 2:00 PM ROD CABA During your visit today, we recorded the following information about you: Rod Caba MD 11/17/2024 11:50 PM Signed Rod Caba MD Department of Orthopaedics Orthopaedics [address] [facility] [address] Dept: [phone] Dept November 17, 2024 CHIEF COMPLAINT: New and Pain of the Right Shoulder Desirae is a 63-year-old female presenting for evaluation of chronic right shoulder pain. HPI Right Shoulder Pain: - Chronic pain in the right shoulder, both anteriorly and posteriorly. - Pain radiates down the arm and is described as constant. - Significant limitation in forward elevation and internal rotation; able to perform external rotation without difficulty. - Pain interferes with sleep; uses the left hand to assist in moving the right arm at night. - Cortisone injection in June provided no relief. - Previous MRI 12 years ago showed a partial tear; no surgery performed at that time. - Recent X-ray showed intact subacromial space, no glenohumeral arthritis, and mild AC joint arthrosis. - Pain with empty can testing; subscapularis and infraspinatus testing limited by pain. 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 - Recent activities include painting a house and moving, which may have exacerbated symptoms. ASSESSMENT: M25.819 Shoulder impingement (primary encounter diagnosis) M75.101 Nontraumatic tear of right rotator cuff, unspecified tear extent M25.511, G89.29 Chronic right shoulder pain 1. Shoulder impingement (M25.819) 2. Nontraumatic tear of right rotator cuff, unspecified tear extent (M75.101) 3. Chronic right shoulder pain (M25.511) - Right shoulder X-ray reviewed, showing intact subacromial space, no glenohumeral arthritis, and mild AC joint arthrosis. - Physical exam reveals pain with empty can testing (3+/5), subscapularis and infraspinatus testing (4+/5) limited by pain. - Limited forward elevation to 130 degrees with pain, external rotation to 80 degrees, and internal rotation to low lumbar area. - Previous MRI indicated a partial tear; recent cortisone injection in June provided no relief. - Ordered new MRI to assess current status of rotator cuff tear. - Discussed potential need for surgical repair depending on MRI findings; patient understands the recovery process and agrees to wait for MRI results before considering further interventions. - Advised against cortisone injection today to avoid delaying potential surgical intervention. - Patient to schedule MRI and follow-up appointment to review results and discuss treatment options. Will continue to monitor patient for Shoulder impingement (primary encounter diagnosis) Nontraumatic tear of right rotator cuff, unspecified tear extent Chronic right shoulder pain, patient to schedule visit as per follow up discussed. PLAN: As above FOLLOW UP INSTRUCTIONS: After MRI OBJECTIVE: Ms. Desirae Franklin is a pleasant 63 year old in no apparent distress. Gen:LMP 08/23/2016 nl development, obese, no deformities ENT: Normocephalic, normal hearing, moist mucosa CV: Pulses:Radial= 2+ and symmetric, capillary refill < 2 secs, no peripheral edema/varicosities Skin: no rash, bruising or lesions. Good turgor. Psych: cooperative and appropriate, alert and oriented x 3, good mood and affect. Musculoskeletal: - Musculoskeletal: - Right Shoulder: - Pain with empty can test; strength approximately 3/5. - Subscapularis and infraspinatus strength 4/5, limited by pain. - ROM: Forward elevation painful at 130 degrees; external rotation to 80 degrees; internal rotation to low lumbar area. IMAGING: Labs: Tests: Imaging: - Right Shoulder X-ray: Intact subacromial space, no glenohumeral arthritis, mild AC joint arthrosis - Right Shoulder MRI: Partial tear of the rotator cuff Supporting Subjective Information Below: Past Medical History: PAST MEDICAL HISTORY Diagnosis Date Essential hypertension 11/03/2016 NEGATIVE MEDICAL HISTORY Snoring Past Surgical History: PAST SURGICAL HISTORY Procedure Laterality Date COLONOSCOPY FLX DX W/COLLJ SPEC WHEN PFRMD 05/21/15 normal - 10 year follow up LAPS SURG CHOLECYSTECTOMY W/CHOLANGIOGRAPHY 05/04/2007 Normal [facility] OVARIAN CYSTECTOMY 1994 ? uterine fibroid REDUCTION OF LARGE BREAST 2002 Breast reduction - bilateral Family History: FAMILY HISTORY Problem Relation Age of Onset Cancer Maternal Grandmother lung Diabetes Father Diabetes Maternal Grandfather Ischemic Heart Disease Father Social History: Social History Tobacco Use Smoking status: Every Day Current packs/day: 0.50 Average packs/day: 0.5 packs/day for 25.0 years (12.5 ttl pk-yrs) (more content not included)... Normal [facility] Roberto 11-11-2024 ROSAURAN Telephone (NORBERTO) DESIRAE FRANKLIN ([id number]) 1960 F Date Time Provider Department 11/11/24 ROD CABA During your visit today, we recorded the following information about you: Daniela Landry MA 11/11/2024 3:31 PM Signed Patient has appointment with Dr. Caba on Friday 11/17. Need to know laterality and has she had any recent x-rays in the past year? If she has recent x-rays needs to bring a copy on a CD to appointment. If not she will need an x-ray prior to her appointment. Melinda Henley MA 11/11/2024 4:25 PM Signed The patient returned call. She has all the records from [facility] and will bring to her appointment. Allergies As of Date: 11/11/2024 Noted Allergy Reaction ATORVASTATIN 04/26/2022 17 - Myalgia CODEINE 05/31/2007 12 - Shortness of Breath Date Reviewed: 01/23/2024 Reviewed by: Keyla Magana LPN - Fully Assessed Reason for Visit: Chart prep [Other] Prescriptions as of 11/11/2024 - lisinopril (PRINIVIL) 10 mg tablet Take 1 tablet by mouth once daily. - buPROPion XL (WELLBUTRIN XL) 150 mg 24 hr tablet Take 1 tablet by mouth once daily. - selenium sulfide 2.5 % lotn Apply 1 application to affected area once daily. - rosuvastatin (CRESTOR) 5 mg tablet Take 1 tablet by mouth daily at bedtime. - albuterol HFA (PROVENTIL HFA, VENTOLIN HFA) 90 mcg/actuation inhaler INHALE 2 PUFFS INSTRUCTED EVERY 4 HOURS NEEDED FOR WHEEZING/SHORTNESS OF BREATH. Problem List As Of Date 11/11/2024 Noted Resolved Calculus of gallbladder without mention of chol*05/31/2007 11/03/2016 Sprain of medial collateral ligament of right k*09/19/2016 02/22/2018 Sprain of medial collateral ligament of left kn*09/19/2016 02/22/2018 Essential hypertension [I10] 11/03/2016 Mixed hyperlipidemia [E78.2] 02/22/2018 Menopausal symptom [N95.1] 09/08/2022 Breast cancer screening [Z12.39] 07/16/2023 Diagnosed: 07/16/2023 Encounter Status:Closed by MELINDA HENLEY on 11/11/24 Normal [facility](OH)[facility]3 [facility] 25-hydroxyvitamin D3 [Mass/Vol] 23.2 ng/mL Low 31.0-80.0 [facility] Comment on above: Order Comment: Speci men Type: BLOOD SPECIMENOrdering Facility: [facility] Address: [address] [place] [address] Result Comment: Clas sification of 25 [place] Vitamin D status: Deficiency/Insufficiency: < or = 30 ng/ml. Sufficiency/Optimal Levels: 31-80 ng/mL Toxicity: > 100 ng/mL. Test performed by chemiluminescent immunoassay. Performed By: #### 1 989-3 ####[facility] [id number] [place] [address] [place] CBC W Auto Differential pane l (Bld)on 09-01-2024 Basophils (Bld) [#/Vol] 0.07 10*3/uL Normal <0.11 [facility] Comment on above: Order Comment: Speci men Type: BLOOD SPECIMENOrdering Facility: [facility] Address: [address] [place] [address] Performed By: #### 5 7021-8 ####[facility] [id number] [place] [address] [place] Basophils/100 WBC (Bld) 1.1 % Normal [facility] Comment on above: Order Comment: Speci men Type: BLOOD SPECIMENOrdering Facility: [facility] Address: [address] [place] [address] Performed By: #### 5 7021-8 ####[facility] [id number] [address] [place] Differential cell count method Nom (Bld) Auto Normal [facility] Comment on above: Order Comment: Speci men Type: BLOOD SPECIMENOrdering Facility: [facility] Address: [address] [place] [address] Performed By: #### 5 7021-8 ####[facility] [id number] [place] [address] [place] Eosinophils (Bld) [#/Vol] 0.15 10*3/uL Normal <0.46 [facility] Comment on above: Order Comment: Speci men Type: BLOOD SPECIMENOrdering Facility: [facility] Address: [address] [place] [address], [place] [address] Performed By: #### 5 7021-8 ####[facility] [id number] [place] [address] [place] Eosinophils/100 WBC (Bld) 2.4 % Normal [facility] Comment on above: Order Comment: Speci men Type: BLOOD SPECIMENOrdering Facility: [facility] Address: [address] [place] [address] Performed By: #### 5 7021-8 ####[facility] [id number] [place] [address] [place] Erythrocyte distribution width (RBC) [Ratio] 12.9 % Normal 11.5-15.0 [facility] Comment on above: Order Comment: Speci men Type: BLOOD SPECIMENOrdering Facility: [facility] Address: [address] [place] [address] Performed By: #### 5 7021-8 ####[facility] [id number] [place] [address] [place] Hematocrit (Bld) [Volume fraction] 43.6 % Normal 36.0-46.0 [facility] Comment on above: Order Comment: Speci men Type: BLOOD SPECIMENOrdering Facility: [facility] Address: [address] [place] [address] Performed By: #### 5 7021-8 ####[facility] [id number] [place] [id number] [place] Hemoglobin (Bld) [Mass/Vol] 14.6 g/dL Normal 11.5-15.5 [facility] Comment on above: Order Comment: Speci men Type: BLOOD SPECIMENOrdering Facility: [facility] Address: [address] [place], [place] [id number] Performed By: #### 5 7021-8 ####[facility] [id number] [place] [address] [place] Immature granulocytes (Bld) [#/Vol] 10*3/uL Normal <0.10 [facility] Comment on above: Order Comment: Speci men Type: BLOOD SPECIMENOrdering Facility: [facility] Address: [address] [place] [address] Performed By: #### 5 7021-8 ####[facility] [id number] [place] [address] [place] Immature granulocytes/100 WBC (Bld) 0.2 % Normal [facility] Comment on above: Order Comment: Speci men Type: BLOOD SPECIMENOrdering Facility: [facility] Address: [address] [place] [address] Performed By: #### 5 7021-8 ####[facility] [id number] [place] [address] [place] Lymphocytes (Bld) [#/Vol] 2.28 10*3/uL Normal 1.00-4.00 [facility] Comment on above: Order Comment: Speci men Type: BLOOD SPECIMENOrdering Facility: [facility] Address: [address] [place] [address] Performed By: #### 5 7021-8 ####[facility] [id number] [place] [address] [place] Lymphocytes/100 WBC (Bld) 36.9 % Normal [facility] Comment on above: Order Comment: Speci men Type: BLOOD SPECIMENOrdering Facility: [facility] Address: [address] [place] [address] Performed By: #### 5 7021-8 ####[facility] [id number] [place] [address] [place] MCH (RBC) [Entitic mass] 31.0 pg Normal 26.0-34.0 [facility] Comment on above: Order Comment: Speci men Type: BLOOD SPECIMENOrdering Facility: [facility] Address: [address] [place] [address] Performed By: #### 5 7021-8 ####[facility] [id number] [place] [address] [place] MCHC (RBC) [Mass/Vol] 33.5 g/dL Normal 30.5-36.0 [facility] Comment on above: Order Comment: Speci men Type: BLOOD SPECIMENOrdering Facility: [facility] Address: [address] [place] [address] Performed By: #### 5 7021-8 ####[facility] [id number] [place] [address] [place] MCV (RBC) [Entitic vol] 92.6 fL Normal 80.0-100.0 [facility] Comment on above: Order Comment: Speci men Type: BLOOD SPECIMENOrdering Facility: [facility] Address: [address] [place] [address] Performed By: #### 5 7021-8 ####[facility] [id number] [place] [address] [place] Monocytes (Bld) [#/Vol] 0.42 10*3/uL Normal <0.87 [facility] Comment on above: Order Comment: Speci men Type: BLOOD SPECIMENOrdering Facility: [facility] Address: [address] [place] [address] Performed By: #### 5 7021-8 ####[facility] [id number] [place] [address] [place] Monocytes/100 WBC (Bld) 6.8 % Normal [facility] Comment on above: Order Comment: Speci men Type: BLOOD SPECIMENOrdering Facility: [facility] Address: [address] [place] [address] Performed By: #### 5 7021-8 ####[facility] [id number] [place] [address] [place] Neutrophils (Bld) [#/Vol] 3.25 10*3/uL Normal 1.45-7.50 [facility] Comment on above: Order Comment: Speci men Type: BLOOD SPECIMENOrdering Facility: [facility] Address: [address] [place] [address] Performed By: #### 5 7021-8 ####[facility] [id number] [place] [address] [place] Neutrophils/100 WBC (Bld) 52.6 % Normal [facility] Comment on above: Order Comment: Speci men Type: BLOOD SPECIMENOrdering Facility: [facility] Address: [address] [place] [address] Performed By: #### 5 7021-8 ####[facility] [id number] [place] [address] [place] Nucleated RBC (Bld) [#/Vol] 10*3/uL Normal <0.01 [facility] Comment on above: Order Comment: Speci men Type: BLOOD SPECIMENOrdering Facility: [facility] Address: [address] [place] [address], [place] [address] Performed By: #### 5 7021-8 ####[facility] [id number] [place] [address] [place] Nucleated RBC/100 WBC (Bld) [Ratio] 0.0 /100 WBC Normal [facility] Comment on above: Order Comment: Speci men Type: BLOOD SPECIMENOrdering Facility: [facility] Address: [address] [place] [address], [place] [address] Performed By: #### 5 7021-8 ####[facility] [id number] [address] [id number] [address] [place] Platelet mean volume (Bld) [Entitic vol] 10.8 fL Normal 9.0-12.7 [facility] Comment on above: Order Comment: Speci men Type: BLOOD SPECIMENOrdering Facility: [facility] Address: [address] [place] [address] Performed By: #### 5 7021-8 ####[facility] [id number] [place] [address] [place] Platelets (Bld) [#/Vol] 196 10*3/uL Normal 150-400 [facility] Comment on above: Order Comment: Speci men Type: BLOOD SPECIMENOrdering Facility: [facility] Address: [address] [place] [address] Performed By: #### 5 7021-8 ####[facility] [id number] [place] [address] [place] RBC (Bld) [#/Vol] 4.71 10*6/uL Normal 3.90-5.20 [facility] Comment on above: Order Comment: Speci men Type: BLOOD SPECIMENOrdering Facility: [facility] Address: [address] [place] [address] Performed By: #### 5 7021-8 ####[facility] [id number] [place] [address] [place] WBC (Bld) [#/Vol] 6.18 10*3/uL Normal 3.70-11.00 [facility] Comment on above: Order Comment: Speci men Type: BLOOD SPECIMENOrdering Facility: [facility] Address: [address] [place] [address] Performed By: #### 5 7021-8 ####[facility] [id number] [place] [id number] [place] Comprehensive metabolic 2000 panelon 09-01-2024 Albumin [Mass/Vol] 4.7 g/dL Normal 3.9-4.9 [facility] Comment on above: Order Comment: Speci men Type: BLOOD SPECIMENOrdering Facility: [facility] Address: [address] [place] [address], [place] [address] Performed By: #### 2 4331-1, 2142-12, , 2132-03 ####[facility] [id number] [place] [address] [place] ALP [Catalytic activity/Vol] 86 U/L Normal 34-123 [facility] Comment on above: Order Comment: Speci men Type: BLOOD SPECIMENOrdering Facility: [facility] Address: [address] [place] [address], [place] [address] Performed By: #### 2 4331-1, 2142-12, , 2132-03 ####[facility] [id number] [place] [address] [place] ALT [Catalytic activity/Vol] 18 U/L Normal 7-38 [facility] Comment on above: Order Comment: Speci men Type: BLOOD SPECIMENOrdering Facility: [facility] Address: [address] [place] [address] Performed By: #### 2 4331-1, 2142-12, , 2132-03 ####[facility]IA [id number] [place] [id number] [place] Anion gap [Moles/Vol] 10 mmol/L Normal 8-15 [facility] Comment on above: Order Comment: Speci men Type: BLOOD SPECIMENOrdering Facility: [facility] Address: [address] [place] [address] Performed By: #### 2 4331-1, 2142-12, , 2132-03 ####[facility] [id number] [address] [address] [place] AST [Catalytic activity/Vol] 15 U/L Normal 13-35 [facility] Comment on above: Order Comment: Speci men Type: BLOOD SPECIMENOrdering Facility: [facility] Address: [address] [place] [address] Performed By: #### 2 4331-1, 2142-12, , 2132-03 ####[facility] [id number] [address] [address] [place] Bilirubin [Mass/Vol] 0.5 mg/dL Normal 0.2-1.3 [facility] Comment on above: Order Comment: Speci men Type: BLOOD SPECIMENOrdering Facility: [facility] Address: [address] [place] [address] Performed By: #### 2 4331-1, 2142-12, , 2132-03 ####[facility] [id number] [place] [address] [place] Calcium [Mass/Vol] 9.8 mg/dL Normal 8.5-10.2 [facility] Comment on above: Order Comment: Speci men Type: BLOOD SPECIMENOrdering Facility: [facility] Address: [address] [place] [address] Performed By: #### 2 4331-1, 2142-12, , 2132-03 ####[facility] [id number] [place] [id number] [place] Chloride [Moles/Vol] 107 mmol/L Normal 98-107 [facility] Comment on above: Order Comment: Speci men Type: BLOOD SPECIMENOrdering Facility: [facility] Address: [address] [place] [address] Performed By: #### 2 4331-1, 2142-12, , 2132-03 ####[facility] [id number] [address] [address] [place] CO2 [Moles/Vol] 24 mmol/L Normal 22-30 [facility] Comment on above: Order Comment: Speci men Type: BLOOD SPECIMENOrdering Facility: [facility] Address: [address] [place] [address] Performed By: #### 2 4331-1, 2142-12, , 2132-03 ####[facility] [id number] [address] [address] [place] Creatinine [Mass/Vol] 0.77 mg/dL Normal 0.58-0.96 [facility] Comment on above: Order Comment: Speci men Type: BLOOD SPECIMENOrdering Facility: [facility] Address: [address] [place] [address] Performed By: #### 2 4331-1, 2142-12, , 2132-03 ####[facility] [id number] [address] [place] Creatinine and Glomerular filtration rate.predicted panel (S/P/Bld) 88 mL/min/1.73m??? Normal >=60 [facility] Comment on above: Order Comment: Speci men Type: BLOOD SPECIMENOrdering Facility: [facility] Address: [address] [place] [address], [place] [address] Result Comment: Nena mated Glomerular Filtration Rate (eGFR) is calculated using the 2020 CKD-EPI creatinine equation. This equation utilizes serum creatinine, sex, and age as parameters. The creatinine assay has traceable calibration to isotope dilution-mass spectrometry. Refer to KDIGO guidelines for clinical interpretation. In patients with unstable renal function, e.g. those with acute kidney injury, the eGFR may not accurately reflect actual GFR. Performed By: #### 2 4331-1, 2142-12, , 2132-03 ####[facility] [id number] [address] [address] [place] Glucose [Mass/Vol] 106 mg/dL High 74-99 [facility] Comment on above: Order Comment: Speci men Type: BLOOD SPECIMENOrdering Facility: [facility] Address: [address] [place] [address], [place] [address] Result Comment: The [place] [employer] (ADA) provides guidance for cutoff values for fasting glucose and random glucose. The ADA defines fasting as no caloric intake for at least 8 hours. Fasting plasma glucose results between 100 to 125 mg/dL indicate increased risk for diabetes (prediabetes). Fasting plasma glucose results greater than or equal to 126 mg/dL meet the criteria for diagnosis of diabetes. In the absence of unequivocal hyperglycemia, results should be confirmed by repeat testing. In a patient with classic symptoms of hyperglycemia or hyperglycemic crisis, random plasma glucose results greater than or equal to 200 mg/dL meet the criteria for diagnosis of diabetes. Reference: Standards of Medical Care in Diabetes 2016, [place] [employer]. Diabetes Care. 2016.39(Suppl 1). Performed By: #### 2 4331-1, 2142-12, , 2132-03 ####[facility] [id number] [place] [address] [place] Potassium [Moles/Vol] 4.3 mmol/L Normal 3.7-5.1 [facility] Comment on above: Order Comment: Pagei men Type: BLOOD SPECIMENOrdering Facility: [facility] Address: [address] [place] [address] Performed By: #### 2 4331-1, 2142-12, , 2132-03 ####[facility] [id number] [place] [id number] [place] Protein [Mass/Vol] 6.6 g/dL Normal 6.3-8.0 [facility] Comment on above: Order Comment: Pagei men Type: BLOOD SPECIMENOrdering Facility: [facility] Address: [address] [place] [address] Performed By: #### 2 4331-1, 2142-12, , 2132-03 ####[facility] [id number] [place] [id number] [place] Sodium [Moles/Vol] 141 mmol/L Normal 136-144 [facility] Comment on above: Order Comment: Speci men Type: BLOOD SPECIMENOrdering Facility: [facility] Address: [address] [place] [address], [place] [address] Performed By: #### 2 4331-1, 2142-12, , 2132-03 ####[facility] [id number] [address] [address] [place] Urea nitrogen [Mass/Vol] 12 mg/dL Normal 7-21 [facility] Comment on above: Order Comment: Speci men Type: BLOOD SPECIMENOrdering Facility: [facility] Address: [address] [place] [address], [place] [address] Performed By: #### 2 4331-1, 2142-12, , 2132-03 ####[facility] [id number] [place] [id number] [place] Cortis SerPl-mCncon 09-01-19 Cortisol [Mass/Vol] 4.1 ug/dL Low 4.8-19.5 [facility] Comment on above: Order Comment: Speci men Type: BLOOD SPECIMENOrdering Facility: [facility] Address: [address] [place] [place] [address], [place] [address] Result Comment: Prov ided reference range is from 6-10 AM sample collection time. Cortisol Reference Range: 6-10 AM = 4.8-19.5 ug/dL, 4-8 PM = 2.5-11.9 ug/dL Performed By: #### 2 4331-1, 2142-12, , 2132-03 ####[facility] LABCLIA [id number] [address] [address] [place] HbA1c (Bld)on 09-01-2024 Average glucose Estimated from glycated hemoglobin (Bld) [Mass/Vol] 108 mg/dL Normal [facility] Comment on above: Order Comment: Speci sandra Type: BLOOD SPECIMENOrdering Facility: [facility] Address: [address] [place] [address], [place] [address] Result Comment: eAG: (Estimated average glucose) is a calculated value from HgbA1c and is outside energy sales representatives of the average blood glucose level in the last 2-3 month period. Performed By: #### 5 5454-3 ####[facility]CLIA [id number] [place] [address] [place] HbA1c (Bld) [Mass fraction] 5.4 % Normal 4.3-5.6 [facility] Comment on above: Order Comment: [place] flores Type: BLOOD SPECIMENOrdering Facility: [facility] Address: [address] [place] [address] Result Comment: Amer [place] Diabetes Association guidelines indicate that patients with HgbA1c in the range 5.7-6.4% are at increased risk for development of diabetes, and intervention by lifestyle modification may be beneficial. HgbA1c greater or equal to 6.5% is considered diagnostic of diabetes. Performed By: #### 5 5454-3 ####[facility] LABCLIA [id number] [place] [address] [place] Lipid 1996 panelon 5 Cholesterol [Mass/Vol] 255 mg/dL High <200 [facility] Comment on above: Order Comment: Amrita flores Type: BLOOD SPECIMENOrdering Facility: [facility] Address: [address] [place] [address], [place] [address] Result Comment: <200 mg/dL, Desirable 200-239 mg/dL, Borderline high >239 mg/dL, High Performed By: #### 2 4331-1, 2143-6, 45035-0, 2132-9 ####[facility] LABCLIA [id number] [place] [address] [place] Cholesterol in HDL [Mass/Vol] 49 mg/dL Normal >39 [facility] Comment on above: Order Comment: Amrita flores Type: BLOOD SPECIMENOrdering Facility: [facility] Address: [address] [place] [address], [place] [address] Result Comment: 40-5 9 mg/dL, Acceptable >59 mg/dL, High: Negative risk factor for coronary heart disease <40 mg/dL, Low: Positive risk factor for coronary heart disease Performed By: #### 2 4331-1, 2142-12, , 2132-03 ####[facility]CLIA [id number] [address] OF [facility] Cholesterol in LDL [Mass/Vol] 178 mg/dL High <100 [facility] Comment on above: Order Comment: Speci men Type: BLOOD SPECIMENOrdering Facility: [facility] Address: [address] [place] [address], [place] [address] Result Comment: <100 mg/dL, Optimal 100-129 mg/dL, Near optimal/above optimal 130-159 mg/dL, Borderline high 160-189 mg/dL, High >189 mg/dL, Very high Secondary prevention optimal LDL Cholesterol levels are recommended to be < 70 mg/dL Performed By: #### 2 4331-1, 2142-12, , 2132-03 ####[facility]CL[facility] [id number] [address] [place] Cholesterol in LDL/Cholesterol in HDL [Mass ratio] 3.63 {ratio} High <2.54 [facility] Comment on above: Order Comment: Speci men Type: BLOOD SPECIMENOrdering Facility: [facility] Address: [address] [place] [address], [place] [address] Result Comment: Refe rence: 1. National Cholesterol Education Program ATP III Guideline At-A-Glance Quick Desk Reference: National Heart, Lung, and Blood [place]. National Institutes of Health. 2001: NIH Publication No. 01-3305. 2. An International Atherosclerosis Society position paper: global recommendations for the management of dyslipidemia: executive summary, Atherosclerosis. 2014: 232(2):410-413. Performed By: #### 2 4331-1, 2142-12, , 2132-03 ####[facility]CLIA [id number] [address] [address] [place] Cholesterol in VLDL [Mass/Vol] 28 mg/dL Normal <30 [facility] Comment on above: Order Comment: Speci men Type: BLOOD SPECIMENOrdering Facility: [facility] Address: [address] [place] [address], [place] [address] Performed By: #### 2 4331-1, 2142-12, , 2132-03 ####[facility]CLIA [id number] [address] [address] [place] Cholesterol non HDL [Mass/Vol] 206 mg/dL High <130 [facility] Comment on above: Order Comment: Speci men Type: BLOOD SPECIMENOrdering Facility: [facility] Address: [address] [place] [address], [place] [address] Result Comment: <130 mg/dL, Optimal 130-159 mg/dL, Near optimal/above optimal 160-189 mg/dL, Borderline high 190-219 mg/dL, High >219 mg/dL, Very high Secondary prevention optimal non HDL Cholesterol levels are recommended to be <100 mg/dL Performed By: #### 2 4331-1, 2142-12, , 2132-03 ####[facility]CLIA [id number] [address] [address] [place] Cholesterol.total/C holesterol in HDL [Mass ratio] 5.20 {ratio} High <5.10 [facility] Comment on above: Order Comment: Speci men Type: BLOOD SPECIMENOrdering Facility: [facility] Address: [address] [place] [address], [place] [address] Performed By: #### 2 4331-1, 2142-12, , 2132-03 ####[facility]CLIA [id number] [address] [address] [place] FASTING TIME 14 hrs Normal [facility] Comment on above: Order Comment: Speci men Type: BLOOD SPECIMENOrdering Facility: [facility] Address: [address] [place] [address], [place] [address] Performed By: #### 2 4331-1, 2142-12, , 2132-03 ####[facility]CLIA [id number] [address] [address] [place] Triglyceride [Mass/Vol] 138 mg/dL Normal <150 [facility] Comment on above: Order Comment: Speci men Type: BLOOD SPECIMENOrdering Facility: [facility] Address: [address] [place] [address], [place] [address] Result Comment: <150 mg/dL, Normal 150-199 mg/dL, Borderline high 200-499 mg/dL, High >499 mg/dL, Very high Performed By: #### 2 4331-1, 2142-12, , 2132-03 ####[facility] LABCLIA [id number] [place] [id number] [place] Magnesium SerPl-mCncon 09-01 Magnesium [Mass/Vol] 2.2 mg/dL Normal 1.7-2.3 [facility] Comment on above: Order Comment: Speci men Type: BLOOD SPECIMENOrdering Facility: [facility] Address: [address] [place] [address], [place] [address] Performed By: #### 3 016-3, 305-0, 73272-8, 3024-01 ####[facility]CLIA [id number] [address] [address] [place] T3Free SerPl-mCncon 09-01-19 25 Free T3 [Mass/Vol] 3.2 pg/mL Normal 2.3-4.1 [facility] Comment on above: Order Comment: Speci men Type: BLOOD SPECIMENOrdering Facility: [facility] Address: [address] [place] [address], [place] [address] Performed By: #### 3 016-3, 3050-0, , 3024-7 ####[facility]CLIA [id number] [address] [address] [place] T4 Free SerPl-mCncon 025 Free T4 [Mass/Vol] 1.2 ng/dL Normal 0.9-1.7 [facility] Comment on above: Order Comment: Speci men Type: BLOOD SPECIMENOrdering Facility: [facility] Address: [address] [place] [address], [place] [address] Performed By: #### 3 016-3, 3051-0, , 3024-01 ####[facility] LABIA [id number] [address] [place] THYROGLOBULIN ANTIBODYon Thyroglobulin Ab Qn [IU]/mL Normal <4.0 [facility] Comment on above: Order Comment: [facility] Type: BLOOD SPECIMENOrdering Facility: [facility] Address: [address] [place] [address], [place] [address] Result Comment: The Thyroglobulin Antibody test was performed using the DrinkWiserel DXI paramagnetic particle chemiluminescent immunoassay method. Results obtained with different assay methods or kits cannot be used interchangeably. Performed By: #### T ARABELLA ####[facility] LABIA [id number] [address] [place] TSH SerPl-aCncon 09-01-2024 TSH Qn 2.070 m[IU]/L Normal 0.270-4.200 [facility] Comment on above: Order Comment: Speci men Type: BLOOD SPECIMENOrdering Facility: [facility] Address: [address] [place] [address], [place] [id number] Performed By: #### 3 016-3, 3051-0, 94750-0, 3024-01 ####[facility] LABIA [id number] [place] [id number] [place] Vit B12 SerPl-mCncon 025 Cobalamin (Vitamin B12) [Mass/Vol] 768 pg/mL Normal 232-1245 [facility] Comment on above: Order Comment: Speci men Type: BLOOD SPECIMENOrdering Facility: [facility] Address: [address] [facility], [place] [id number] Performed By: #### 2 4331-1, 2143-6, 57511-8, 2132-9 ####[facility] LABCLIA [id number] [place] [id number] OF [facility] CNTHERAPYon 01-24-2024 CNTHERAPY OT/PT/Speech Visit (LDPT) DESIRAE FRANKLIN ([id number]) 1960 F Date Time Provider Department 01/24/24 3:00 PM TRISHA LYONS LDPT Date Time Provider Department Center 01/24/2024 3:00 PM [id number], CHRISTI LDPT [facility] Reason for Visit: PT Eval [747] PT Discharge [752] Visit Diagnosis:Vertigo [R42] Allergies As of Date: 01/24/2024 Noted Allergy Reaction ATORVASTATIN 04/26/2022 17 - Myalgia CODEINE 05/31/2007 12 - Shortness of Breath Date Reviewed: 01/23/2024 Reviewed by: Keyla Magana LPN - Fully Assessed Prescriptions as of 05/06/2024 - buPROPion XL (WELLBUTRIN XL) 150 mg 24 hr tablet Take 1 tablet by mouth once daily. - selenium sulfide 2.5 % lotn Apply 1 application to affected area once daily. - rosuvastatin (CRESTOR) 5 mg tablet Take 1 tablet by mouth daily at bedtime. - lisinopril (PRINIVIL) 10 mg tablet Take 1 tablet by mouth once daily. - albuterol HFA (PROVENTIL HFA, VENTOLIN HFA) 90 mcg/actuation inhaler INHALE 2 PUFFS INSTRUCTED EVERY 4 HOURS NEEDED FOR WHEEZING/SHORTNESS OF BREATH. Normal [facility] CBC W Auto Differential pane l (Bld)on 11-23-2023 Basophils (Bld) [#/Vol] 0.07 10*3/uL [facility] Basophils/100 WBC (Bld) 1.0 % [facility] Differential cell count method Nom (Bld) Auto [facility] Eosinophils (Bld) [#/Vol] 0.24 10*3/uL [facility] Eosinophils/100 WBC (Bld) 3.6 % [facility] Erythrocyte distribution width (RBC) [Ratio] 13.3 % 11.5 - 15.0 % [facility] Hematocrit (Bld) [Volume fraction] 43.4 % 36.0 - 46.0 % [facility] Hemoglobin (Bld) [Mass/Vol] 14.0 g/dL 11.5 - 15.5 g/dL [facility] Immature granulocytes (Bld) [#/Vol] [facility] Immature granulocytes/100 WBC (Bld) 0.3 % [facility] Lymphocytes (Bld) [#/Vol] 2.14 10*3/uL [facility] Lymphocytes/100 WBC (Bld) 31.9 % [facility] MCH (RBC) [Entitic mass] 30.3 pg 26.0 - 34.0 pg [facility] MCHC (RBC) [Mass/Vol] 32.3 g/dL 30.5 - 36.0 g/dL [facility] MCV (RBC) [Entitic vol] 93.9 fL 80.0 - 100.0 fL [facility] Monocytes (Bld) [#/Vol] 0.50 10*3/uL [facility] Monocytes/100 WBC (Bld) 7.5 % [facility] Neutrophils (Bld) [#/Vol] 3.73 10*3/uL [facility] Neutrophils/100 WBC (Bld) 55.7 % [facility] Nucleated RBC (Bld) [#/Vol] [facility] Nucleated RBC/100 WBC (Bld) [Ratio] 0.0 % /100 WBC [facility] Platelet mean volume (Bld) [Entitic vol] 11.5 fL 9.0 - 12.7 fL [facility] Platelets (Bld) [#/Vol] 186 10*3/uL [facility] RBC (Bld) [#/Vol] 4.62 10*6/uL 3.90 - 5.2 0 m/uL [facility] WBC (Bld) [#/Vol] 6.70 10*3/uL [facility] HbA1c (Bld)on 11-23-2023 Average glucose Estimated from glycated hemoglobin (Bld) [Mass/Vol] 111 mg/dL [facility] Comment on above: eAG: (Estimated aver age glucose) is a calculated value from HgbA1c and is outside energy sales representatives of the average blood glucose level in the last 2-3 month period. HbA1c (Bld) [Mass fraction] 5.5 % 4.3 - 5.6 % [facility] Comment on above: [place] Diabetes As sociation guidelines indicate that patients with HgbA1c in the range 5.7-6.4% are at increased risk for development of diabetes, and intervention by lifestyle modification may be beneficial. HgbA1c greater or equal to 6.5% is considered diagnostic of diabetes. [facility] DANISH SCREENING [facility] 04-02 [facility] DANISH SCREENING [facility] 03-31 [facility] PAP I-G HPV Hi Riskon 2018 ADEQ Comment Normal . [facility] Comment on above: Order Comment: CYTOL OGY INFORMATION: - CLINICAL INFORMATION: - DATE LMP/MENOPAUSE: 10/10/18 LMP - COLLECTION VIAL: Thin Prep Vial - BRAZER PRODUCTION LINE SOURCE: CERVICAL/ENDOCERVICAL - COLLECTION TECHNIQUE: BRUSH/SPATULA Specimen Comment: [id number] Specimen Comment: Source.............Cervix;Endocervix Specimen Comment: LMP / Prev Treat...[id number] Specimen Comment: No. of containers..01 ThinPrep Vial Result Comment: Sati sfactory for evaluation. Endocervical and/or squamous metaplastic cells (endocervical component) are present. Performed By: #### L 7400.0375 #### [facility] (refer to report for specific site) refer to report for address and phone number COMM . Normal . [facility] Comment on above: Order Comment: CYTOL OGY INFORMATION: - CLINICAL INFORMATION: - DATE LMP/MENOPAUSE: 10/10/18 LMP - COLLECTION VIAL: Thin Prep Vial - BRAZER PRODUCTION LINE SOURCE: CERVICAL/ENDOCERVICAL - COLLECTION TECHNIQUE: BRUSH/SPATULA Specimen Comment: [id number] Specimen Comment: Source.............Cervix;Endocervix Specimen Comment: LMP / Prev Treat...[id number] Specimen Comment: No. of containers..01 ThinPrep Vial Performed By: #### L 7400.0375 #### [facility] (refer to report for specific site) refer to report for address and phone number DIAGN Comment Normal . [facility] Comment on above: Order Comment: CYTOL OGY INFORMATION: - CLINICAL INFORMATION: - DATE LMP/MENOPAUSE: 10/10/18 LMP - COLLECTION VIAL: Thin Prep Vial - BRAZER PRODUCTION LINE SOURCE: CERVICAL/ENDOCERVICAL - COLLECTION TECHNIQUE: BRUSH/SPATULA Specimen Comment: [id number] Specimen Comment: Source.............Cervix;Endocervix Specimen Comment: LMP / Prev Treat...[id number] Specimen Comment: No. of containers..01 ThinPrep Vial Result Comment: NEGA TIVE FOR INTRAEPITHELIAL LESION OR MALIGNANCY. Performed By: #### L 7400.0375 #### [facility] (refer to report for specific site) refer to report for address and phone number HPV HC,HGH RISK Negative Normal Negative [facility] Comment on above: Order Comment: CYTOL OGY INFORMATION: - CLINICAL INFORMATION: - DATE LMP/MENOPAUSE: 10/10/18 LMP - COLLECTION VIAL: Thin Prep Vial - BRAZER PRODUCTION LINE SOURCE: CERVICAL/ENDOCERVICAL - COLLECTION TECHNIQUE: BRUSH/SPATULA Specimen Comment: [id number] Specimen Comment: Source.............Cervix;Endocervix Specimen Comment: LMP / Prev Treat...[id number] Specimen Comment: No. of containers..01 ThinPrep Vial Result Comment: This high-risk HPV test detects thirteen high-risk types (16/18/31/33/35/39/45/51/52/56/58/59/68) without differentiation. Performed at: [address] [id number] Shank Pinner: Kaitlyn Suarez MD, Phone: [phone] Performed at: =G - [facility] [address] [place] [place], [place] [id number] Shank Pinner: Kaitlyn Suarez MD, Phone: [phone] Performed By: #### L 7400.0375 #### [facility] (refer to report for specific site) refer to report for address and phone number PAPSMR Comment Normal . [facility] Comment on above: Order Comment: CYTOL OGY INFORMATION: - CLINICAL INFORMATION: - DATE LMP/MENOPAUSE: 10/10/18 LMP - COLLECTION VIAL: Thin Prep Vial - BRAZER PRODUCTION LINE SOURCE: CERVICAL/ENDOCERVICAL - COLLECTION TECHNIQUE: BRUSH/SPATULA Specimen Comment: [id number] Specimen Comment: Source.............Cervix;Endocervix Specimen Comment: LMP / Prev Treat...[id number] Specimen Comment: No. of containers..01 ThinPrep Vial Result Comment: The Pap smear is a screening test designed to aid in the detection of premalignant and malignant conditions of the uterine cervix. It is not a diagnostic procedure and should not be used as the sole means of detecting cervical cancer. Both false-positive and false-negative reports do occur. Performed By: #### L 7400.0375 #### [facility] (refer to report for specific site) refer to report for address and phone number PERFORM Comment Normal . [facility] Comment on above: Order Comment: CYTOL OGY INFORMATION: - CLINICAL INFORMATION: - DATE LMP/MENOPAUSE: 10/10/18 LMP - COLLECTION VIAL: Thin Prep Vial - BRAZER PRODUCTION LINE SOURCE: CERVICAL/ENDOCERVICAL - COLLECTION TECHNIQUE: BRUSH/SPATULA Specimen Comment: [id number] Specimen Comment: Source.............Cervix;Endocervix Specimen Comment: LMP / Prev Treat...[id number] Specimen Comment: No. of containers..01 ThinPrep Vial Result Comment: Melinda Pastor, [employer] ([employer]) Performed By: #### L 7400.0375 #### [facility] (refer to report for specific site) refer to report for address and phone number TEST METHOD Comment Normal . [facility] Comment on above: Order Comment: CYTOL OGY INFORMATION: - CLINICAL INFORMATION: - DATE LMP/MENOPAUSE: 10/10/18 LMP - COLLECTION VIAL: Thin Prep Vial - BRAZER PRODUCTION LINE SOURCE: CERVICAL/ENDOCERVICAL - COLLECTION TECHNIQUE: BRUSH/SPATULA Specimen Comment: [id number] Specimen Comment: Source.............Cervix;Endocervix Specimen Comment: LMP / Prev Treat...[id number] Specimen Comment: No. of containers..01 ThinPrep Vial Result Comment: This liquid based ThinPrep(R) pap test was screened with the use of an image guided system. Performed By: #### L 7400.0375 #### [facility] (refer to report for specific site) refer to report for address and phone number Office Visit Reporton 2017 Office Visit Report [facility] [address] [place] [address] OFFICE VISIT Date of Service: 12/04/17 MR#: [id number] Acct: [id number] Patient: DESIRAE CANO Rep #: [id number] : 1960 Provider: Isabella To NP Age/Sex: 56/F Location: [facility] Status: Signed Intake Vital Signs12/04/17 Height 5 ft 1 in 12/04/17 Weight: 189 lb 12/04/17 Body Mass Index (BMI) 35.6 12/04/17 Blood Pressure 117/78 12/04/17 Blood Pressure Location Lt popliteal 12/04/17 Blood Pressure Position Sitting Intake 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 Facilities Required: No Accompanied by: Self Is patient in pain?: No Allergies codeine Allergy (Unknown, Verified 12/04/17 14:35) Unknown Medications lisinopril 10 mg tablet 10 mg PO QDAY 12/04/17 [History Confirmed 12/04/17] Is last menstrual period known: No Post menopausal: Yes Patient : No PFSH Medical History Anxiety and depression (Acute) GERD (gastroesophageal reflux disease) (Acute) Gallstone (Acute) High cholesterol (Acute) Polycystic ovary (Acute) Seasonal allergies (Acute) HTN (hypertension) (Chronic) Surgical History H/O bilateral breast reduction surgery (Acute) Hx of cholecystectomy (Acute) fibroid tumor removal (Acute) Family History Unknown Arthritis Hypertension Skin cancer CVA (cerebral vascular accident) Social History Smoking Status: Former smoker alcohol intake: current substance use type: does not use Questionnaire Depression Screen PHQ-2/9 PHQ-2 Over the last 2 weeks, how often have you been bothered by any of the following problems? 1. Little interest or pleasure in doing things: several days 2. Feeling down, depressed, or hopeless: more than half the days Total score: 3 If score is 2 or greater, continue 3. Trouble falling or staying asleep, or sleeping too much: nearly every day 4. Feeling tired or having little energy: nearly every day 5. Poor appetite or overeating: nearly every day 6. Feeling bad about yourself - or that you are a failure or have let yourself and your family down: nearly every day 7. Trouble concentrating on things, such as reading the newspaper or watching television: more than half the days 8. Moving or speaking so slowly that other people could have noticed? - Or the opposite - being so fidgety or restless that you have been moving around a lot more than usual: several days 9. Thoughts that you would be better off or of hurting yourself in some way: not at all Total score: 18 If you checked off any problems, how difficult have these problems made it for you to do your work, take care of things at home, or get along with other people?: very difficult Source: Developed by Drs. Sharif Mancuso, Dorothy Womack, Jose Wolf and colleagues, with an educational kenia from [employer]. Scoring: Total Score Depression Severity Action 1-4 Minimal depression No action needed 5-9 Mild depression Repeat PHQ-9 at follow up 10-14 Moderate depression Make tx plan,consider counseling, fup, prescription HPI HPI Details: DESIRAE CANO, is a 56 F who presents to the office today for consult regarding thyroid. She is concerned as she feels she may be hypothyroid. Has gained weight, is tired, sleeps more than she feels she should, awakens tired, Severity, modifying factors, context, and associated signs and symptoms are as follows: Thyroid pain: No Energy: Reduced Sleep: Not awakened refreshed Temp: Heat intolerance GI: Normal bowel Weight: gaining weight Eyes: No change in vision Memory: unchanged Diaphoresis: Not significant Skin: Dry Hair : Unchanged Neuro: No numbness, tingling or tremors At time of visit: -Pt denies symptoms of hypertensive emergency (CP,SOB,JONES, or blurred vision) and hypotension(dizziness or lightheadedness) -Pt denies symptoms of hypoglycemia ( sweaty, confusion, anxiety, tremor, hunger, palpitations) and hyperglycemia ( polydipsia, polyuria) -Pt denies potential medication adverse effect. ROS Const Constitutional: Positive for fatigue, night sweats, sleep problems and abnormal sleep pattern; no anorexia, body ache, chills, fever(s), frequent falls, decreased energy, malaise, weakness, weight change, change in appetite, other, headache(s), snoring or excessive sweating Eyes Eyes: No blurry vision, change in vision, double vision, discharge, dry eyes, bulging eyes, floaters, visual disturbances, eye pain, light sensitivity, spots in vision, tunnel vision or other ENT ENT: Positive for nasal congestion and nasal discharge; no abnormal hearing, ear pain, ear discharge, ear pressure, hearing loss, tinnitus, dizziness/vertigo, balance problems, nosebleed/epistaxis, nasal obstruction, nose pain, sinus pressure, sinus pain, post nasal drip, headache(s), facial pain, dental pain, dry mouth, bad breath, hoarseness, lip swelling, mouth lesions, mouth pain, sore throat, tongue swelling, throat swelling, other, difficulty swallowing or neck pain Resp Respiratory: No cough, change in phlegm color, chest congestion, excessive phlegm production, hemoptysis, pain on inspiration, shortness of breath, pain with cough, snoring, stridor, wheezing or other Cardio Cardiology: Positive for generalized swelling; no chest pain at rest, chest pain with exertion, leg pain with exertion, excessive sweating, shortness of breath, dyspnea on exertion, irregular heart rhythm, lightheadedness, orthopnea, radiating jaw, neck or arm pain, fast heart rate, slow heart rate, palpitations or other Gastro GI: Positive for constipation; no abdominal pain, belching, bloating, change in bowel habits, change in stool character, coffee ground emesis, cramping, diarrhea, heartburn, difficulty swallowing, feeling full early, excessive flatus, incontinent of stools, Vomiting blood/hematemesis, blood in stool, loose stools, Black,tarry stools, nausea/dyspepsia, pain with swallowing, vomiting or other Genitourinary-Female: No difficulty urinating, burning urination, painful urination, urinary incontinence, urinary frequency, urinary urgency, urinary hesitancy, urinary retention, blood in urine, Frequent nighttime urination/ nocturia, post void dribbling, suprapubic fullness, side pain, sexual problems, genital lesions, genital itching, hot flashes, abnormal periods, abnormal vaginal bleeding, absent period, painful periods, light periods, heavy periods, difficulty getting , painful intercourse, pelvic pain, vaginal dryness, vaginal odor, Vaginal Itching or other Musc Musculoskeletal: No abnormal walking, joint pain, back pain, deformity, joint swelling, limited range of motion, loss of height, muscle cramps, muscle weakness, decreased muscle mass, body aches, neck pain, numbness, radiating pain into limb, stiffness, tingling or other Skin Skin: No acne, hair loss, change in hair, nail changes, boil, change in skin color, dry skin, redness, excessive hair growth, yellowing of the skin, lesions, itching, rash, skin pain, skin ulcer, sores, skin swelling, wounds or other Breast Breast: No other Neuro Neurology: No frequent falls, weakness, visual disturbances, abnormal hearing, headache(s), abnormal walking, numbness or tingling Psych Psychiatric: Positive for abnormal sleep pattern, No change in appetite Endo Endocrine: Positive for fatigue; no other or excessive sweating Aller/Imm Allergy/Immunologic: No lip swelling, tongue swelling, throat swelling, wheezing or itchy eyes Exam Const General: comfortable, well groomed Nutritional Appearance: well nourished, overweight Orientation: oriented x3 [facility] Head: normal to inspection Ears: hearing grossly normal bilaterally Face and sinus: normal facial exam Mouth: oral mucosae normal, moist mucous membranes Teeth and gingiva: dentition normal Eyes General: appearance normal, both eyes and all related structures Eyelids: eyelids normal Conjunctivae: conjunctivae normal Sclera: sclerae normal Pupils: PERRL Neck Neck: normal visual inspection, full ROM Neck mass: No Thyroid: thyroid normal Resp Effort AND Inspection: normal respiratory effort, able to speak in complete sentences, symmetric chest movement Auscultation: Bilateral: Clear to Auscultation Cardio Rate: regular rate Rhythm: regular rhythm Heart Sounds: S1 normal, S2 normal, no murmurs, no rubs GI Inspection: normal to inspection Auscultation: normal bowel sounds Palpation: soft, no guarding Musc Musculoskeletal: No muscle weakness, joint tenderness or joint redness Skin General: no rashes or lesions noted Wounds: no wounds Hair: normal Neuro General: oriented x3, moves all extremities Cranial Nerves: CN's II-XI intact bilaterally Extrem General: full ROM, normal capillary refill, no edema Psych Appearance: well kempt Mental Status: mental status grossly normal Mood: congruent mood Affect: normal affect Speech and Movement: speech and movement normal Attitude: cooperative Thought Process: normal Thought Content: normal Judgment: judgment good Assessment AND Plan Problems 1. Chronic fatigue and malaise R53.82; R53.81 Plan Gives this provider to call Dr. Araiza to let him know she is having s/s of depression. she has no thoughts of self harm or of harming others. Call placed to Dr. Araiza office at [facility]. Orders Orders: Coding Level of Care Code Off vis,new,level 3 Diagnoses Chronic fatigue and malaise R53.82; R53.81 Time Spent (min) 30 01/12/181928 Date Isabella To NP-C Cosigner Signature: Date (if applicable) CC: Normal [facility] Miscellaneous Lab Procedureo n 12-07-2017 [facility] Comment on above: Order Comment: Comme nts: [id number] MICROSOMAL AB SERUM 1MLRED TOP RT Test(s) Ordered: [id number] MICROSOMAL AB SERUM 1MLRED TOP RT Result Comment: TEST RESULT UNITS REF INTERVAL Liver-Kidney Microsomal Ab <1.0 Units 0.0 - 20.0 Negative 0.0 - 20.0 Equivocal 20.1 - 24.9 Positive >24.9 LKM type 1 antibodies are detected in patients with autoimmune hepatitis type 2 and in up to 8% of patients with chronic HCV infection. TESTING PERFORMED AT [facility]. ORIGINAL REPORT ON FILE IN LAB CONTAINS ADDITIONAL TEST SITE INFORMATION. Performed By: #### L [id number] #### [facility] [address] [place], [place], [id number] Free T3on 12-04-2017 T3 free mass conc 2.5 pg/mL Normal 2.18-3.98 [facility] Comment on above: Order Comment: Comme nts: [id number] MICROSOMAL AB SERUM 1MLRED TOP RT Performed By: #### L [id number], L506.0400, [id number] #### [facility] [address] [place] [address], [id number] T4 Free Directon 12-04-2017 T4 FREE DIRECT 0.88 ng/dL Normal 0.76-1.46 [facility] Comment on above: Order Comment: Comme nts: [id number] MICROSOMAL AB SERUM 1MLRED TOP RT Performed By: #### L [id number], L506.0400, [id number] #### [facility], [place], [id number] Thyroid Stim Hormone (TSH)on 12-04-2017 Thyrotropin Qn 1.51 uIU/mL Normal 0.358-3.74 [facility] Comment on above: Order Comment: Comme nts: [id number] MICROSOMAL AB SERUM 1MLRED TOP RT Performed By: #### L [id number], L506.0400, [id number] #### [facility] [address] [place], [place], [id number] Vital Signs Date Time Vital Sign Value Performing Clinician Mora alonso 12-10-2024 09:22-0400 Body height 156 cm Myrna Shrestha SUPERINTENDENT [employer]LL SERVICES.CYBER DEFENSE ANALYST Work Phone: [facility] 12-10-2024 09:22-0400 Body mass index (BMI) [Ratio] 36.91 kg/m2 Myrna Shrestha SUPERINTENDENT [employer].CYBER DEFENSE ANALYST Work Phone: [facility] 12-10-2024 09:22-0400 Body weight 89.81 kg Myrna Shrestha SUPERINTENDENT [employer].CYBER DEFENSE ANALYST Work Phone: [facility] 12-10-2024 09:22-0400 Diastolic blood pressure 88 mm[Hg] Myrna Shrestha SUPERINTENDENT [employer] SERVICES.CYBER DEFENSE ANALYST Work Phone: [facility] 12-10-2024 09:22-0400 Heart rate 65 /min Myrna Shrestha SUPERINTENDENT [employer].CYBER DEFENSE ANALYST Work Phone: [facility] 12-10-2024 09:22-0400 Respiratory rate 16 /min Myrna Shrestha SUPERINTENDENT [employer].CYBER DEFENSE ANALYST Work Phone: [facility] 12-10-2024 09:22-0400 SaO2% (BldA) [Mass fraction] 96 % Myrna Shrestha SUPERINTENDENT [employer].CYBER DEFENSE ANALYST Work Phone: [facility] 12-10-2024 09:22-0400 Systolic blood pressure 130 mm[Hg] Myrna Shrestha SUPERINTENDENT [employer].CYBER DEFENSE ANALYST Work Phone: [facility] 01-23-2024 08:09-0400 Body mass index (BMI) [Ratio] 36.28 kg/m2 Blanco Araiza MD Work Phone: [facility] 01-23-2024 08:09-0400 Body weight 87.09 kg Blanco Araiza MD Work Phone: [facility] 01-23-2024 08:09-0400 Diastolic blood pressure 72 mm[Hg] Blanco Araiza MD Work Phone: [facility] 01-23-2024 08:09-0400 Heart rate 57 /min Blanco Araiza MD Work Phone: [facility] 01-23-2024 08:09-0400 SaO2% (BldA) [Mass fraction] 97 % Blanco Araiza MD Work Phone: [facility] 01-23-2024 08:09-0400 Systolic blood pressure 122 mm[Hg] Blanco Araiza MD Work Phone: [facility] 11-23-2023 07:42-0400 Body height 154.9 cm Myrna Haagen SUPERINTENDENT [employer].CYBER DEFENSE ANALYST Work Phone: [facility] 11-23-2023 07:42-0400 Body mass index (BMI) [Ratio] 39.3 kg/m2 Myrna Haagen SUPERINTENDENT [employer].CYBER DEFENSE ANALYST Work Phone: [facility] 11-23-2023 07:42-0400 Body weight 94.35 kg Myrna Haagen SUPERINTENDENT [employer] SERVICES.CYBER DEFENSE ANALYST Work Phone: [facility] 11-23-2023 07:42-0400 Diastolic blood pressure 77 mm[Hg] Myrna Haagen SUPERINTENDENT [employer] SERVICES.CYBER DEFENSE ANALYST Work Phone: [facility] 11-23-2023 07:42-0400 Heart rate 54 /min Myrna Haagen SUPERINTENDENT [employer] SERVICES.CYBER DEFENSE ANALYST Work Phone: [facility] 11-23-2023 07:42-0400 Systolic blood pressure 129 mm[Hg] Myrna Haagen SUPERINTENDENT [employer].CYBER DEFENSE ANALYST Work Phone: [facility] 03-23-2023 08:42-0400 Body weight 93.44 kg Blanco Araiza MD Work Phone: [facility] 03-23-2023 08:42-0400 Diastolic blood pressure 82 mm[Hg] Blanco Araiza MD Work Phone: [facility] 03-23-2023 08:42-0400 Heart rate 60 /min Blanco Araiza MD Work Phone: [facility] 03-23-2023 08:42-0400 SaO2% (BldA) [Mass fraction] 99 % Blanco Araiza MD Work Phone: [facility] 03-23-2023 08:42-0400 Systolic blood pressure 128 mm[Hg] Blanco Araiza MD Work Phone: [facility] 09-08-2022 09:34-0500 Body height 154.9 cm Blanco Araiza MD Work Phone: [facility] 09-08-2022 09:34-0500 Body weight 94.35 kg Blanco Araiza MD Work Phone: [facility] 09-08-2022 09:34-0500 Diastolic blood pressure 82 mm[Hg] Blanco Araiza MD Work Phone: [facility] 09-08-2022 09:34-0500 Heart rate 71 /min Blanco Araiza MD Work Phone: [facility] 09-08-2022 09:34-0500 SaO2% (BldA) [Mass fraction] 98 % Blanco Araiza MD Work Phone: [facility] 09-08-2022 09:34-0500 Systolic blood pressure 118 mm[Hg] Blanco Araiza MD Work Phone: [facility] 06-21-2022 12:20-0500 Body temperature 97.81 [degF] Parul Praisler-Wood SUPERINTENDENT [employer] SERVICES.CYBER DEFENSE ANALYST Work Phone: [facility] 06-21-2022 12:20-0500 Body weight 91.54 kg Parul Praisler-Wood SUPERINTENDENT [employer].CYBER DEFENSE ANALYST Work Phone: [facility] 06-21-2022 12:20-0500 Diastolic blood pressure 86 mm[Hg] Parul Praisler-Wood SUPERINTENDENT [employer] SERVICES.CYBER DEFENSE ANALYST Work Phone: [facility] 06-21-2022 12:20-0500 Heart rate 72 /min Parul Praisler-Wood SUPERINTENDENT [employer].CYBER DEFENSE ANALYST Work Phone: [facility] 06-21-2022 12:20-0500 Respiratory rate 20 /min Parul Praisler-Wood SUPERINTENDENT [employer].CYBER DEFENSE ANALYST Work Phone: [facility] 06-21-2022 12:20-0500 SaO2% (BldA) [Mass fraction] 98 % Parul Blackburn SUPERINTENDENT [employer] SERVICES.CYBER DEFENSE ANALYST Work Phone: [facility] 06-21-2022 12:20-0500 Systolic blood pressure 130 mm[Hg] Parul Blackburn SUPERINTENDENT [employer] SERVICES.CYBER DEFENSE ANALYST Work Phone: [facility] 05-29-2022 14:39-0500 Diastolic blood pressure 73 mm[Hg] Mi Nurse Work Phone: [facility] 05-29-2022 14:39-0500 Heart rate 70 /min Mi Nurse Work Phone: [facility] 05-29-2022 14:39-0500 Systolic blood pressure 116 mm[Hg] Mi Nurse Work Phone: [facility] 04-19-2022 09:06-0400 Diastolic blood pressure 87 mm[Hg] Mi Nurse Work Phone: [facility] 04-19-2022 09:06-0400 Heart rate 61 /min Mi Nurse Work Phone: [facility] 04-19-2022 09:06-0400 Systolic blood pressure 143 mm[Hg] Mi Nurse Work Phone: [facility] 03-10-2022 15:20-0400 Body weight 86.64 kg Blanco Araiza MD Work Phone: [facility] 03-10-2022 15:20-0400 Diastolic blood pressure 72 mm[Hg] Blanco Araiza MD Work Phone: [facility] 03-10-2022 15:20-0400 Heart rate 76 /min Blanco Araiza MD Work Phone: [facility] 03-10-2022 15:20-0400 Systolic blood pressure 118 mm[Hg] Blanco Araiza MD Work Phone: [facility] Encounters Encounter Date Encounter Type Care Provider Facility Start: 04-30-2025 ambulatory OSCAR Montanez ty:[facility] Start: 04-20-2025 ambulatory BLANCO Brandon TEODORA Facility :[facility] Start: 03-26-2025 End: 03-26-2025 ambulatory [facility] Facility:[facility] Start: 03-10-2025 End: 03-13-2025 Telephone encounter Sarah Cole APRN.CNP Work Phone: General Surgery Comment on above: Appointment Start: 12-18-2024 End: 12-18-2024 Refill Blanco Araiza MD Work Phone: [facility] Comment on above: Refill Request Start: 12-17-2024 End: 12-18-2024 Follow-up encounter Myrna Shrestha APRN.CYBER DEFENSE ANALYST Work Phone: [facility] Start: 12-15-2024 End: 12-15-2024 Patient encounter procedure Rod Caba MD Work Phone: Orthopaedics Comment on above: Shoulder impingement (Primary Dx); Nontraumatic tear of right rotator cuff, unspecified tear extent; Chronic right shoulder pain Start: 12-15-2024 End: 12-15-2024 ambulatory ROD CABA Facility:[facility] Start: 12-12-2024 End: 12-12-2024 Telephone encounter Sarah Cole APRN.CNP Work Phone: General Surgery Comment on above: Appointment Start: 12-12-2024 End: 12-12-2024 ambulatory [facility] Facility:[facility] Start: 12-10-2024 End: 12-10-2024 Patient encounter procedure Myrna Shrestha APRN.CYBER DEFENSE ANALYST Work Phone: [facility] Comment on above: Routine physical exa mination (Primary Dx); Screening for colon cancer; Visit for screening mammogram; Mixed hyperlipidemia; Essential (primary) hypertension; Tear of right rotator cuff, unspecified tear extent, unspecified whether traumatic Start: 12-10-2024 End: 12-10-2024 ambulatory [facility] Facility:[facility] Start: 12-10-2024 End: 12-10-2024 Physical examination Myrna Shrestha APRN.CNP Work Phone: [facility] Start: 11-27-2024 ambulatory ROD CABA Facility :[facility] Start: 11-17-2024 End: 11-17-2024 Patient encounter procedure Rod Caba MD Work Phone: Orthopaedics Comment on above: Shoulder impingement (Primary Dx); Nontraumatic tear of right rotator cuff, unspecified tear extent; Chronic right shoulder pain Start: 11-17-2024 End: 11-17-2024 ambulatory ROD CABA Facility:[facility] Start: 11-11-2024 End: 11-11-2024 Telephone encounter Rod Caba MD Work Phone: Orthopaedics Comment on above: Chart prep Start: 11-10-2024 End: 11-10-2024 Refill Blanco Araiza MD Work Phone: [facility] Comment on above: Refill Request Start: 09-01-2024 End: 09-01-2024 ambulatory BLANCO ARAIZA Facility:[facility] Start: 04-07-2024 End: 04-08-2024 Documentation procedure Mammography Coordinator [facility] Department Start: 04-07-2024 End: 04-08-2024 Letter encounter Mammography Coordinator [facility] Department Start: 04-04-2024 End: 04-04-2024 Subsequent hospital visit by physician Screen Mammo [facility] Mammogram Comment on above: Encounter for screen ing mammogram for malignant neoplasm of breast [Z12.31] Start: 01-24-2024 End: 01-25-2024 ambulatory Trisha Lyons PT Work Phone: [facility] Comment on above: Vertigo Start: 01-23-2024 End: 01-23-2024 Patient encounter procedure Blanco Araiza MD Work Phone: [facility] Comment on above: Mixed hyperlipidemia (Primary Dx); Depression, unspecified depression type; Eczema, unspecified type; Encounter for screening mammogram for malignant neoplasm of breast; [place] Start: 12-12-2023 Refill Blanco Araiza MD Work Phone: [facility] Comment on above: Refill Request Start: 11-27-2023 Telephone encounter Myrna buenrostro APRN.CYBER DEFENSE ANALYST Work Phone: [facility] Comment on above: Results Start: 11-23-2023 End: 11-23-2023 Office outpatient visit 25 minutes Myrna Shrestha APRN.CYBER DEFENSE ANALYST Work Phone: [facility] Comment on above: Dizziness (Primary D x); Mixed hyperlipidemia; Essential hypertension; Screening for diabetes mellitus; Obesity, Class II, BMI 35-39.9 Start: 04-03-2023 Documentation procedure Mammog cristino Coordinator [facility] Start: 04-03-2023 Letter encounter Mammography Coordinator [facility] Department Start: 04-02-2023 End: 04-02-2023 Subsequent hospital visit by physician Screen Mammo [facility] Mammogram Start: 03-23-2023 End: 03-23-2023 Patient encounter procedure Blanco Araiza MD Work Phone: [facility] Comment on above: Essential hypertensi on (Primary Dx); Eczema, unspecified type; Mixed hyperlipidemia Start: 02-08-2023 End: 02-13-2023 ambulatory [place] AMARO Facility:[facility] Start: 02-08-2023 End: 02-13-2023 Encounter for gynecological examination (general) (routine) without abnormal findings [place] Facility:[facility] Start: 02-08-2023 End: 02-12-2023 Outreach Lab YK AMARO MD [facility] Start: 09-08-2022 End: 09-08-2022 Patient encounter procedure Blanco Araiza MD Work Phone: [facility] Comment on above: Essential hypertensi on (Primary Dx); Mixed hyperlipidemia Start: 08-26-2022 Refill Blanco Araiza MD Work Phone: [facility] Comment on above: Refill Request Start: 06-21-2022 End: 06-21-2022 Patient encounter procedure Parul Blackburn APRN.CNP Work Phone: [facility] Comment on above: Otitis media with ef fusion, bilateral (Primary Dx) Start: 05-29-2022 End: 05-29-2022 Nursing evaluation of patient and report Mi Nurse Work Phone: [facility] Comment on above: Essential hypertensi on (Primary Dx) Start: 05-11-2022 Refill Blanco Araiza MD Work Phone: [facility] Comment on above: Refill Request Start: 05-08-2022 Refill Blanco Araiza MD Work Phone: [facility] Comment on above: Refill Request Start: 04-26-2022 Telephone encounter Blanco Araiza MD Work Phone: [facility] Comment on above: Patient Update; Resu lts Start: 04-19-2022 End: 04-19-2022 Nursing evaluation of patient and report Ca Nurse Work Phone: [facility] Comment on above: Essential hypertensi on (Primary Dx) Start: 04-12-2022 Telephone encounter Blanco Araiza MD Work Phone: [facility] Comment on above: Patient Question Start: 03-31-2022 End: 03-31-2022 Subsequent hospital visit by physician Screen Mammo [facility] Mammogram Comment on above: Screening breast exa mination [Z12.39] Start: 03-10-2022 End: 03-10-2022 Patient encounter procedure Blanco Araiza MD Work Phone: [facility] Comment on above: Essential hypertensi on (Primary Dx); Eczema, unspecified type; Screening breast examination; Mixed hyperlipidemia; Tobacco abuse; Anxiety Procedures Date Procedure Procedure Detail Performing Clinician Start: 12-12-2024 Lipid 1996 panel - S marbella or Plasma Blanco Araiza MD Work Phone: Start: 09-01-2024 Lipid 1995 panel - S marbella or Plasma Blanco Araiza MD Work Phone: Start: 11-23-2023 Lipid 1995 panel - S marbella or Plasma Myrna Shrestha APRN.CNP Work Phone: Start: 04-02-2023 Screening digital br [facility] Provider Start: 04-21-2022 Lipid 1996 panel - S marbella or Plasma Blanco Araiza MD Work Phone: Start: 03-31-2022 DANISH SCREENING W MATT Wi jacque Araiza MD Work Phone: Start: 03-31-2022 Mammography Screen Wst r Start: 03-17-2021 Mammography Blanco Mckeon MD Work Phone: Start: 11-22-2020 Adult depression scr eening assessment Blanco Araiza MD Work Phone: Start: 05-21-2015 Colonoscopy Blanco Mckeon MD Work Phone: Cataract (morphologi c abnormality) [place] AMARO MD Cholecystectomy [place] AM[place] MD Neoplasm (morphologi c abnormality) [place] AMAR[place] MD Comment on above: abdominal fibroid tu mor Reduction mammoplast y, bilateral [place] AMARO MD Plan of Treatment Date Care Activity Detail Author Start: 2037 RSV Vaccine (1 - 1-d ose 75+ series) RSV Vaccine (1 - 1-dose 75+ series) [facility] Start: 12-12-2029 Lipid panel Lipid Screening [facility] Start: 09-01-2029 Lipid panel Lipid Screening [facility] Start: 11-22-2028 Lipid panel Lipid Screening [facility] Start: 09-01-2027 Diabetes Screening Diabetes Screenin g [facility] Start: 04-21-2027 Lipid 1996 panel - Serum or Plasma Lipid Screening [facility] Start: 04-21-2027 Lipid panel Lipid Screening [facility] Start: 04-21-2027 LIPID SCREEN LIPID SCREEN [facility] Start: 03-08-2027 LIPID SCREEN LIPID SCREEN [facility] Start: 11-22-2026 Diabetes Screening Diabetes Screenin g [facility] Start: 12-10-2025 Annual PCP Team Consulting Systems Engineer isabela Disease Visit Annual PCP Team Chronic Disease Visit [facility] Start: 12-10-2025 Anxiety Screening Anxiety Screening [facility] Comment on above: Postponed from 12/25 (Declined at this time) Start: 12-10-2025 Covid-19 Vaccine ( season) Covid-19 Vaccine () [facility] Comment on above: Postponed from 03/09 (Declined at this time) Start: 06-12-2025 End: 06-12-2025 Patient encounter procedure 06/12/2025 1:00 PM EST Office Visit Family Maribel Griffith [address] [place] [address] Myrna Shrestha APRN.CYBER DEFENSE ANALYST [address] [place] [address] 6 month follow up [facility] Maribel Griffith Comment on above: 6 month follow up Start: 05-21-2025 Colonoscopy COLONOSCOPY [facility] Start: 05-21-2025 COLORECTAL CANCER SCREENING COLORECTAL CANCER SCREENING [facility] Start: 05-21-2025 Screening for malign ant neoplasm of colon [facility] Start: 04-10-2025 Shingrix Vaccine (2 of 2) Shingrix Vaccine (2 of 2) [facility] Start: 04-10-2025 End: 04-10-2025 Patient encounter procedure 04/10/2025 7:30 AM EDT Appointment Mammogram [address] [place] [address] Visit for screening mammogram [Z12.31] Mammogram Comment on above: Visit for screening mammogram [Z12.31] Start: 04-08-2025 End: 01-09-2026 DBT Breast - bilateral screening DANISH SCREENING W [facility] Radiology Routine Visit for screening mammogram Expected: 04/08/2025, Expires: 01/09/2026 [facility] Work Phone: Comment on above: Expected: 04/08/2025 , Expires: 01/09/2026 Start: 04-04-2025 Screening for malign ant neoplasm of breast Mammogram Screening [facility] Start: 03-27-2025 End: 03-27-2025 Patient encounter procedure 03/27/2025 9:30 AM EDT Office Visit General Surgery [address] [place] [address] Sarah Cole APRN.CYBER DEFENSE ANALYST [address] [place] [address] CONSULT::Screening for colon cancer. Last 05/21/2015. [facility] General Surgery Comment on above: CONSULT::Screening f or colon cancer. Last 05/21/2015. [facility] Start: 03-26-2025 End: 03-26-2025 Patient encounter procedure 03/26/2025 1:00 PM EDT Office Visit General Surgery [address] [place], [place] [id number] Sarah Cole APRN.CYBER DEFENSE ANALYST [address] [place] [address] CONSULT::Screening for colon cancer. Last 05/21/2015. [facility] General Surgery Comment on above: CONSULT::Screening f or colon cancer. Last 05/21/2015. [facility] Start: 03-09-2025 Influenza vaccination [facility] Start: 01-22-2025 Annual PCP Team Consulting Systems Engineer isabela Disease Visit Annual PCP Team Chronic Disease Visit [facility] Start: 01-22-2025 BP Controlled (<130/80) BP Controlle d (<130/80) [facility] Start: 01-22-2025 Covid-19 Vaccine ( season) Covid-19 Vaccine ( season) [facility] Comment on above: Postponed from 03/09 (Declined at this time) Start: 01-22-2025 Pneumococcal vaccination Pneumococcal Vaccine (1 of 2 - PCV) [facility] Comment on above: Postponed from 12/25 (Declined at this time) Start: 01-22-2025 RSV Vaccine (1 - 1-d ose 60+ series) RSV Vaccine (1 - 1-dose 60+ series) [facility] Comment on above: Postponed from 12/25 (Declined at this time) Start: 01-22-2025 Shingrix Vaccine (1 of 2) Shingrix Vaccine (1 of 2) [facility] Comment on above: Postponed from 12/25 (Declined at this time) Start: 01-22-2025 Urine microalbumin profile DTaP,Tdap,Td Vaccine (1 - Tdap) [facility] Comment on above: Postponed from 12/25 (Declined at this time) Start: 12-19-2024 End: 12-19-2024 Patient encounter procedure 12/19/2024 1:00 PM EDT Office Visit General Surgery [address] [place] [address] Sarah Cole APRN.CYBER DEFENSE ANALYST [address] [place] [address] :Screening for colon cancer [Z12.11] General Surgery Comment on above: :Screening for colon cancer [Z12.11] Start: 12-15-2024 End: 12-15-2024 Patient encounter procedure 12/15/2024 1:45 PM EDT Office Visit Orthopaedics [address] [place] [address] Rod Caba MD [address] [place] [address] follow up after MRI Orthopaedics Comment on above: follow up after MRI Start: 12-12-2024 End: 12-12-2024 ambulatory 12/12/2024 8:45 AM EDT Results Only Nacho [facility] [address] [place] [address] Nacho [facility] Start: 12-10-2024 End: 03-11-2025 Lipid 1996 panel - Serum or Plasma LIPID PANEL, FASTING Lab Routine Mixed hyperlipidemia Expected: 12/10/2024, Expires: 03/11/2025 [facility] Comment on above: Expected: 12/10/2024 , Expires: 03/11/2025 Start: 11-27-2024 End: 11-27-2024 Patient encounter procedure 11/27/2024 8:30 AM EDT Appointment Radiology [address] [place] [address] Shoulder impingement [M25.819] Radiology Comment on above: Shoulder impingement [M25.819] Start: 11-22-2024 Annual PCP Team Consulting Systems Engineer isabela Disease Visit Annual PCP Team Chronic Disease Visit [facility] Start: 11-22-2024 BP Controlled (<130/80) BP Controlle d (<130/80) [facility] Start: 11-17-2024 End: 11-17-2024 Patient encounter procedure Orthopaedics Comment on above: Shoulder pain. I've had 2 cortisone injections, the first one was 12 years ago, second one about 4 months ago. Torn rotator cuff, bone spurs, arthritis. Right shoulder pain. I've had 2 cortisone injections, the first one was 12 years ago, second one about 4 months ago. Torn rotator cuff, bone spurs, arthritis. Start: 09-07-2024 DIABETES SCREEN DIABETES SCREEN [facility] Start: 09-07-2024 Diabetes Screening Diabetes Screenin g [facility] Start: 07-25-2024 End: 07-25-2024 Patient encounter procedure 07/25/2024 9:40 AM EST Office Visit Family Medicine Nacho [address] [place] [address] Blanco Araiza MD [address] [place] [id number] 6 month follow up Family Maribel Griffith Comment on above: 6 month follow up Start: 07-08-2024 Behavioral Health Screening Behavioral Health Screening [facility] Comment on above: Postponed from 07/09 (Declined at this time) Start: 04-04-2024 End: 04-04-2024 Patient encounter procedure 04/04/2024 9:20 AM EDT Office Visit Family Maribel Griffith [address] [place] [address] Blanco Araiza MD [address] [place] [address] 6 month follow up Family Maribel Griffith Comment on above: 6 month follow up Start: 04-02-2024 Mammography Mammogram Screening [facility] Start: 04-02-2024 Screening for malign ant neoplasm of breast Mammogram Screening [facility] Start: 03-23-2024 Annual PCP Team Consulting Systems Engineer isabela Disease Visit Annual PCP Team Chronic Disease Visit [facility] Start: 03-09-2024 Covid-19 Vaccine ( season) Covid-19 Vaccine ( season) [facility] Start: 03-09-2024 Influenza vaccination [facility] Start: 03-05-2024 End: 06-04-2024 Hepatic function 2000 panel - Serum or Plasma HEPATIC FUNCTION PNL Lab Routine Mixed hyperlipidemia Expected: 03/05/2024, Expires: 06/04/2024 [facility] Work Phone: Comment on above: Expected: 03/05/2024 , Expires: 06/04/2024 Start: 03-05-2024 End: 06-04-2024 Lipid 1996 panel - Serum or Plasma LIPID PANEL BASIC Lab Routine Mixed hyperlipidemia Expected: 03/05/2024, Expires: 06/04/2024 [facility] Comment on above: Expected: 03/05/2024 , Expires: 06/04/2024 Start: 11-23-2023 End: 02-22-2024 Comprehensive metabolic 2000 panel - Serum or Plasma [facility] Comment on above: Expected: 11/23/2023 , Expires: 02/22/2024 Start: 11-23-2023 End: 02-22-2024 LIPID PANEL, NONFASTING [facility] Comment on above: Expected: 11/23/2023 , Expires: 02/22/2024 Start: 11-23-2023 End: 02-22-2024 Thyrotropin [Units/volume] in Serum or Plasma [facility] Work Phone: Comment on above: Expected: 11/23/2023 , Expires: 02/22/2024 Start: 09-09-2023 ANNUAL PCP TEAM BOX FOLDING MACHINE OPERATOR ISABELA DISEASE VISIT ANNUAL PCP TEAM CHRONIC DISEASE VISIT [facility] Start: 09-09-2023 COVID-19 VACCINE (3 - Booster for Moderna series) COVID-19 VACCINE (3 - Booster for Moderna series) [facility] Comment on above: Postponed from 03/30 (Declined at this time) Start: 09-09-2023 Covid-19 Vaccine (3 - Moderna series) Covid-19 Vaccine (3 - Moderna series) [facility] Comment on above: Postponed from 03/30 (Declined at this time) Start: 07-09-2023 Behavioral Health Screening Behavioral Health Screening [facility] Start: 05-29-2023 BP CONTROLLED (<130/80) BP CONTROLLE D (<130/80) [facility] Start: 03-31-2023 Mammography [facility] Start: 03-23-2023 End: 05-23-2023 CBC W Auto Differential panel - Blood CBC + DIFF Lab Routine Essential hypertension Expected: 03/23/2023, Expires: 05/23/2023 [facility] Work Phone: Comment on above: Expected: 03/23/2023 , Expires: 05/23/2023 Start: 03-23-2023 End: 05-23-2023 Comprehensive metabolic 2000 panel - Serum or Plasma COMP METABOLIC PANEL Lab Routine Essential hypertension Expected: 03/23/2023, Expires: 05/23/2023 [facility] Work Phone: Comment on above: Expected: 03/23/2023 , Expires: 05/23/2023 Start: 03-23-2023 End: 11-21-2023 Lipid 1996 panel - Serum or Plasma LIPID PANEL BASIC Lab Routine Essential hypertension Expected: 03/23/2023, Expires: 11/21/2023 [facility] Work Phone: Comment on above: Expected: 03/23/2023 , Expires: 11/21/2023 Start: 03-10-2023 ANNUAL PCP TEAM BOX FOLDING MACHINE OPERATOR ISABELA DISEASE VISIT ANNUAL PCP TEAM CHRONIC DISEASE VISIT [facility] Start: 03-10-2023 BP CONTROLLED (<130/80) BP CONTROLLE D (<130/80) [facility] Start: 03-09-2023 Covid-19 Vaccine ( season) Covid-19 Vaccine ( season) [facility] Start: 03-09-2023 Influenza vaccination Influenza Vacc ine (#1) [facility] Start: 01-05-2023 Influenza vaccination INFLUENZA (#1) [facility] Comment on above: Postponed from 03/09 (Declined at this time) Start: 2022 RSV Vaccine (1 - 1-d ose 60+ series) RSV Vaccine (1 - 1-dose 60+ series) [facility] Start: 09-08-2022 End: 11-08-2022 CBC W Auto Differential panel - Blood CBC + DIFF Lab Routine Essential hypertension Expected: 09/08/2022, Expires: 11/08/2022 [facility] Work Phone: Comment on above: Expected: 09/08/2022 , Expires: 11/08/2022 Start: 09-08-2022 End: 11-08-2022 Comprehensive metabolic 2000 panel - Serum or Plasma COMP METABOLIC PANEL Lab Routine Essential hypertension Expected: 09/08/2022, Expires: 11/08/2022 [facility] Work Phone: Comment on above: Expected: 09/08/2022 , Expires: 11/08/2022 Start: 09-07-2022 End: 11-07-2022 Lipid 1996 panel - Serum or Plasma LIPID PANEL BASIC Lab Routine Mixed hyperlipidemia Expected: 09/07/2022, Expires: 11/07/2022 [facility] Work Phone: Comment on above: Expected: 09/07/2022 , Expires: 11/07/2022 Start: 07-27-2022 End: 09-26-2022 Lipid 1996 panel - Serum or Plasma LIPID PANEL BASIC Lab Routine Mixed hyperlipidemia Expected: 07/27/2022, Expires: 09/26/2022 [facility] Work Phone: Comment on above: Expected: 07/27/2022 , Expires: 09/26/2022 Start: 07-09-2022 DEPRESSION ASSESSMENT DEPRESSION ASS ESSMENT [facility] Start: 04-21-2022 End: 06-21-2022 Hepatic function 2000 panel - Serum or Plasma HEPATIC FUNCTION PNL Lab Routine Mixed hyperlipidemia Expected: 04/21/2022, Expires: 06/21/2022 [facility] Work Phone: Comment on above: Expected: 04/21/2022 , Expires: 06/21/2022 Start: 03-17-2022 Mammography MAMMOGRAM [facility] Start: 03-09-2022 Influenza vaccination INFLUENZA (#1) [facility] Start: 11-22-2021 Adult depression screening assessment DEPRESSION SCREENING [facility] Start: 10-27-2021 PAP TESTING PAP TESTING [facility] Start: 10-27-2021 Screening for malign ant neoplasm of cervix Pap Testing [facility] Start: 07-09-2021 DEPRESSION ASSESSMENT DEPRESSION ASS ESSMENT [facility] Start: 07-05-2021 COVID-19 VACCINE (3 - Booster for Moderna series) COVID-19 VACCINE (3 - Booster for Moderna series) [facility] Start: 03-30-2021 COVID-19 VACCINE (3 - Booster for Moderna series) COVID-19 VACCINE (3 - Booster for Moderna series) [facility] Start: 10-28-2019 Screening for malign ant neoplasm of cervix Cervical Cancer Screening [facility] Start: 2012 SHINGRIX VACCINE (1 of 2) SHINGRIX VACCINE (1 of 2) [facility] Start: 12-26-2007 COLOGUARD (FIT-DNA) COLOGUARD (FIT-D NA) [facility] Start: 12-26-[address] COLONOGRAPHY [facility] Start: 12-26-2007 FECAL OCCULT BLOOD FECAL OCCULT BLOO D [facility] Start: 12-26-2007 Screening for malign ant neoplasm of colon [facility] Start: 12-26-2007 SIGMOIDOSCOPY SIGMOIDOSCOPY [facility] Start: 1992 HPV TESTING HPV TESTING [facility] Start: 1992 Screening for malign ant neoplasm of cervix HPV Testing [facility] Start: 1981 Pneumococcal Vaccine : 50+ (1 of 2 - PCV) Pneumococcal Vaccine: 50+ (1 of 2 - PCV) [facility] Start: 1981 Urine microalbumin profile [facility] Start: 1980 Anxiety Screening Anxiety Screening [facility] Start: 1980 BP CONTROLLED (<130/80) BP CONTROLLE D (<130/80) [facility] Start: 1980 Depression Screening Depression Scre ening [facility] Start: 1980 HIV SCREENING HIV SCREENING [facility] Start: 1968 PNEUMOCOCCAL (1 - PCV) PNEUMOCOCCAL (1 - PCV) [facility] Start: 1968 Pneumococcal vaccination [facility] End: 02-21-2025 DBT Breast - bilateral screening DANISH SCREENING W MATT Radiology Routine Encounter for screening mammogram for malignant neoplasm of breast 1 Occurrences starting 01/23/2024 until 02/21/2025 [facility] Comment on above: 1 Occurrences starti ng 01/23/2024 until 02/21/2025 DBT Breast - bilater al screening DANISH SCREENING W MATT Radiology Routine Encounter for screening mammogram for malignant neoplasm of breast 04/04/2024 10:50 AM EDT [facility] Work Phone: End: 04-09-2023 DANISH SCREENING W MATT DANISH SCREENING W MATT Radiology Routine Screening breast examination 1 Occurrences starting 03/10/2022 until 04/09/2023 [facility] Work Phone: Comment on above: 1 Occurrences starti ng 03/10/2022 until 04/09/2023 End: 12-17-2025 MR Shoulder - right WO contrast MRI SHOULDER WO IVCON RIGHT Radiology Routine Shoulder impingement Nontraumatic tear of right rotator cuff, unspecified tear extent Chronic right shoulder pain 1 Occurrences starting 11/17/2024 until 12/17/2025 [facility] Work Phone: Comment on above: 1 Occurrences starti ng 11/17/2024 until 12/17/2025 [facility] Immunizations Immunization Date Immunization Notes Care Provider Fa marlene 02-13-2025 zoster vaccine recombinant Sarah Cole APRN.CNP Work Phone: [facility] 02-02-2021 COVID-19, mRNA, LNP- S, PF, 100 mcg or 50 mcg dose; Translations: [Moderna COVID-19 Vaccine] [place] AMARO MD [facility] 12-02-2020 COVID-19, mRNA, LNP- S, PF, 100 mcg or 50 mcg dose; Translations: [Moderna COVID-19 Vaccine] [place] AMARO MD [facility] 08-08-2017 influenza virus vaccine, unspecified formulation Blanco Araiza MD Work Phone: [facility] Payers Date Payer Category Payer [employer] Blue [employer] BLUE ACCE PPO [id number] 2023 Unknown [id number] 2023 Unknown [id number] 2013 Unknown [id number] 1960 Unknown [id number] Social History Date Type Detail Facility Start: 03-10-2022 End: 12-10-2024 Tobacco smoking status MTIS Smokes tobacco daily [facility] History of tobacco use Cigarette Smoker [facility] Start: 03-10-2022 End: 12-08-2024 Cigarettes smoked current (pack per day) - Reported 0.5 [facility] Start: 03-10-2022 End: 12-10-2024 Tobacco use and exposure Smokeless tobacco non-user [facility] Start: 03-10-2022 End: 12-30-2024 Alcohol intake Current drinker of alcohol (finding) [facility] Start: 11-22-2020 History SDOH Alcohol Frequency 4 [facility] Start: 11-22-2020 History SDOH Alcohol Std Drinks 1 [facility] Start: 11-22-2020 History SDOH Alcohol Binge 2 [facility] Start: 11-22-2020 History SDOH Social Connections Christianity 3 [facility] Start: 11-22-2020 History SDOH Physical Activity DPW 0 [facility] Start: 11-22-2020 Education 15 [facility] Start: 03-10-2022 Tobacco Comment quit for 2 years, started back up 5 years ago. 05/23/19 [facility] Start: 1960 Sex Assigned At Female [facility] Start: 02-28-2022 End: 03-10-2022 Exposure to SARS-CoV-2 (event) Not sure [facility] Start: 03-03-2021 Tobacco smoking status Heavy tobacco smoker (finding) [facility] Sex Assigned At Sex [facility] Start: 03-22-2023 End: 12-08-2024 [facility] [employer] [facility] Has the [employer], oil, or water company threatened to shut off services in your home in past 12Mo No [facility] Do you belong to any clubs or organizations such as rastafari groups, unions, fraternal or athletic groups, or school groups? Yes [facility] Are you now , , , , never or living with a partner? [facility] How often to you hav e a drink containing alcohol? Monthly or less [facility] How many standard dr inks containing alcohol do you have on a typical day? 3 or 4 [facility] How often do you hav e 6 or more drinks on 1 occasion? Never [facility] Start: 06-09-2012 Adult Depression Screening Assessment 0 [facility] Work Phone: Do you feel stress - tense, restless, nervous, or anxious, or unable to sleep at night because your mind is troubled all the time - these days [OSQ] Rather much [facility] (I/We) worried hussein er (my/our) food would run out before (I/we) got money to buy more. Never true [facility] Start: 09-05-2021 Gender identity Identifies as female gender (finding) [facility] Start: 09-05-2021 Sexual orientation Heterosexual (finding) [facility] Are you now , , , , never or living with a partner? [facility] How often to you hav e a drink containing alcohol? 2-4 times a month [facility] How many standard dr inks containing alcohol do you have on a typical day? 1 or 2 [facility] Functional Status Date Assessment Result Facility 11-23-2014 Are you deaf, or do you have serious difficulty hearing No 11/23/2014 7:54 AM Morenita Currie LPN No [facility] 11-23-2014 Are you blind, or do you have serious difficulty seeing, even when wearing glasses No 11/23/2014 7:54 AM EDT Morenita Ahmadi LPN No [facility] 11-23-2014 Do you have serious difficulty walking or climbing stairs No 11/23/2014 7:54 AM EDT Morenita Ahmadi LPN [facility] 11-23-2014 Do you have difficul ty dressing or bathing No 11/23/2014 7:54 AM EDT Morenita Ahmadi LPN [facility] 11-23-2014 Because of a physica l, mental, or emotional condition, do you have difficulty doing errands alone such as visiting a physician's office or shopping No 11/23/2014 7:54 AM EDT Morenita Ahmadi LPN [facility] Mental Status Date Assessment Result Facility 11-23-2014 Because of a physica l, mental, or emotional condition, do you have serious difficulty concentrating, remembering, or making decisions No 11/23/2014 7:54 AM EDT Morenita Ahmadi LPN [facility] Clinical Notes 09-19-2016 to 04-20-2025 Telephone Encounter - Sarah Cole APRN.[facility] - 03/10/2025 3:01 PM EDTTelephone Encounter - Sarah Cole APRN.[facility] - 03/10/2025 3:01 PM EDTPRod ortiz MD - 12/15/2024 11:58 AM EDTRadiology Note Date & Type Note Facility 04-20-2025 Note HNO ID: [id number] Author: ZARIA HERNANDEZ Mammo Tech Service: ? Author Type: Human Resources Representative Type: Progress Notes Filed: 04/20/2025 10:08 Note Text: Radiology Service Progress Note PATIENT NAME: Desirae Franklin DATE OF SERVICE: April 20, 2025 TIME: 10:08 AM PATIENT IDENTITY VERIFICATION COMPLETED USING TWO (2) IDENTIFIERS: Name and Date of confirmed by patient verbally. FALL SCREENING: Has the patient had 2 falls in the last year or 1 fall with injury or currently using an Ambulatory Assistive Device (Walker, Cane, Wheelchair, Crutches, etc.)? No PATIENT GENDER DATA: Assigned female at . status: : No status: NO. PATIENT RELEVANT IMPLANT DATA REVIEWED: Not Applicable PATIENT PRESENTS WITH AN IMPLANTABLE OR ATTACHED GREASER HELPER: No RADIOLOGY DEPARTMENT: Mammography PERIPHERAL IV DATA: Not applicable SIGNED BY: Zaria Hernandez Karma Snapo [place] April 20, 2025 10:08 AM [facility] 03-26-2025 Note HNO ID: [id number] Author: SARAH COLE APRN.CYBER DEFENSE ANALYST Service: ? Author Type: Nurse Practitioner Type: Progress Notes Filed: 03/26/2025 13:36 Note Text: HISTORY AND PHYSICAL Desirae Franklin : 1960 REFERRING PHYSICIAN: Myrna Shrestha [address] [facility] [address] CHIEF COMPLAINT: Patient presents with: Consult: Due for repeat colonoscopy HPI: Desirae is a 64 year old female referred for endoscopy. Desirae notes due for screening colonoscopy. Desirae denies abdominal pain. Desirae denies diarrhea. Desirae denies constipation. Desirae denies a change in bowel habits. Desirae denies melena. Desirae denies bright red blood per rectum. Desirae denies family history of colon issues. Desirae notes heartburn. -using Tums with relief Desirae denies dysphagia. Desirae's medical history is significant for HLD,HTN,obesity and anxiety. She denies CP, SOB, dizziness, palpitations, syncope, edema, recent hospitalizations Desirae has undergone prior endoscopy. Last colonoscopy was 05/[address] Huffman at [facility]. Sedation: Midazolam 8 mg IV, Fentanyl 100 micrograms IV Impression: - The entire examined colon is normal on direct and retroflexion views. - No specimens collected. Current Outpatient Medications Medication Sig rosuvastatin (CRESTOR) 5 mg tablet Take 1 tablet by mouth daily at bedtime. lisinopril (PRINIVIL) 10 mg tablet Take 1 tablet by mouth once daily. albuterol HFA (PROVENTIL HFA, VENTOLIN HFA) 90 mcg/actuation inhaler INHALE 2 PUFFS INSTRUCTED EVERY 4 HOURS NEEDED FOR WHEEZING/SHORTNESS OF BREATH. peg 3350-Electrolytes (GOLYTELY) 236-22.74-6.74 -5.86 gram suspension Refer to printed prep instructions from your provider. meloxicam (MOBIC) 15 mg tablet TAKE 1 TABLET BY MOUTH EVERY DAY selenium sulfide 2.5 % lotn Apply 1 application to affected area once daily. No current facility-administered medications for this visit. ALLERGIES: Atorvastatin and Codeine PAST MEDICAL HISTORY Diagnosis Date Anxiety Essential (primary) hypertension Essential hypertension 11/03/2016 GERD (gastroesophageal reflux disease) Mixed hyperlipidemia NEGATIVE MEDICAL HISTORY Snoring Tear of right rotator cuff, unspecified tear extent, unspecified whether traumatic Tobacco use disorder PAST SURGICAL HISTORY Procedure Laterality Date COLONOSCOPY FLX DX W/COLLJ SPEC WHEN PFRMD 05/21/15 normal - 10 year follow up LAPS SURG CHOLECYSTECTOMY W/CHOLANGIOGRAPHY 05/04/2007 Normal IOC OVARIAN CYSTECTOMY 1994 ? uterine fibroid REDUCTION OF LARGE BREAST 2001 Breast reduction - bilateral FAMILY HISTORY Problem Relation Age of Onset Cancer Maternal Grandmother lung Diabetes Father Diabetes Maternal Grandfather Ischemic Heart Disease Father SOCIAL HISTORY[1] REVIEW OF SYMPTOMS: REVIEW OF SYSTEMS: General: The patient denies fatigue, denies weight loss, + weight gain, denies feeling hot, and feelings of cold. Eyes: The patient denies glaucoma, + eye injury/surgery, + glasses or contacts. Ear/Nose/Throat: The patient + allergies, denies hayfever, denies ear infections, and denies bloody noses. Cardiovascular: The patient denies chest pain, denies heart disease, + high blood pressure, + high cholesterol, and denies poor circulation. Respiratory: The patient denies tuberculosis, denies pneumonia, denies frequent cough, denies shortness of breath, and denies coughing up blood. Gastrointestinal: The patient denies difficulty swallowing, denies acid reflux, denies ulcers, denies jaundice/hepatitis, denies gallbladder problems, denies vomiting, denies black or tarry stools, denies hemorrhoids, denies bleeding from rectum, denies diverticulitis, denies constipation, denies diarrhea, denies loss of stool control, and denies hernias. Kidney/Bladder: The patient denies kidney stones, denies urine infections, and denies bloody urine. Skin: The patient denies a history of skin cancer, denies bleeding/changing moles, and denies a history of skin rash. Neurologic: The patient denies a history of epilepsy/convulsions, denies headaches, denies head/spinal injuries, and denies stroke/TIA. Psychiatric: The patient denies psychiatric medications, denies depression, and denies voices. Endocrine: The patient denies thyroid disorders, denies diabetes, and denies hormonal problems. Hematologic: The patient denies a history of bruising, denies bleeding, and denies anemia. Infections: The patient denies a history of measles and mumps, denies rheumatic fever, and denies sexually transmitted diseases. Musculoskeletal: The patient denies back pain/injury, denies back problems, denies sciatica, denies knee/foot trouble, + arthritis, or denies gout. PHYSICAL EXAMINATION: General: The patient is 64 year old, female well nourished, well hydrated in no acute distress. The patient is oriented to time, place, and person. VITALS: Blood pressure 1 (more content not included)... [facility] 03-10-2025 Telephone encounter Note Please reschedule patient. I am out of the office during her current appt time. Thank you, Sarah Cole APRN.CYBER DEFENSE ANALYST [facility] Work Phone: 03-10-2025 Miscellaneous Notes Please reschedule patient. I am out of the office during her current appt time. Thank you, Sarah Cole APRN.CYBER DEFENSE ANALYST documented in this encounter [facility] 12-18-2024 Telephone encounter Note phone note not needed, rx was done already. [facility] 12-18-2024 Miscellaneous Notes phone note not needed, rx was done already. documented in this encounter [facility] 12-15-2024 Note HNO ID: [id number] Author: ROD CABA MD Service: ? Author Type: Physician Type: Progress Notes Filed: 12/31/2024 00:07 Note Text: Rod Caba MD Department of Orthopaedics Orthopaedics [address] [facility] [address] Dept: [phone] Dept December 31, 2024 CHIEF COMPLAINT: Results - Mri of the Right Shoulder HPI Desirae Franklin is a 63-year-old female presenting for follow-up on a partial rotator cuff tear. Desirae reports persistent shoulder pain due to a partial rotator cuff tear, which has been ongoing for over a decade. She recently resumed taking meloxicam 3 weeks ago, which was initially prescribed 2.5 years ago for foot pain, and notes significant improvement in her shoulder pain since restarting the medication. She denies any new symptoms or changes in her condition. ASSESSMENT: M25.819 Shoulder impingement (primary encounter diagnosis) M75.101 Nontraumatic tear of right rotator cuff, unspecified tear extent M25.511, G89.29 Chronic right shoulder pain 1. Shoulder impingement (M25.819) Nontraumatic tear of right rotator cuff, unspecified tear extent (M75.101) Chronic right shoulder pain (M25.511) MRI reveals a partial thickness tear of the rotator cuff with associated inflammation. No significant progression in arthritis or bone spurs. No evidence of muscle atrophy. Patient experiences chronic shoulder pain, currently managed with meloxicam, which has provided relief. - Continue meloxicam daily; transmitted a new prescription to [facility]. - Discussed potential for corticosteroid injection if pain exacerbates. - Educated patient on the nature of the partial tear and the minimal impact of bone spurs on current symptoms. 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 - Ordered standing lab work to monitor renal function and CBC in 3-4 months if meloxicam is used long-term; patient to repeat labs every 6 months thereafter. - Patient understands and agrees with the treatment plan. Will continue to monitor patient for Shoulder impingement (primary encounter diagnosis) Nontraumatic tear of right rotator cuff, unspecified tear extent Chronic right shoulder pain, patient to schedule visit as per follow up discussed. OBJECTIVE: Ms. Desirae Franklin is a pleasant 64 year old in no apparent distress. Gen:LMP 08/23/2016 nl development, obese, no deformities ENT: Normocephalic, normal hearing, moist mucosa CV: Pulses:Radial= 2+ and symmetric, capillary refill < 2 secs, no peripheral edema/varicosities Skin: no rash, bruising or lesions. Good turgor. Psych: cooperative and appropriate, alert and oriented x 3, good mood and affect. Musculoskeletal: Supple range of motion of the cervical spine without pain. Spurling signs are negative. No atrophy of the deltoid and shoulder musculature. Right shoulder is nontender to palpation over the SC joint, clavicle and AC joint. mild tenderness to palpation over the posterior shoulder, Positive tenderness to palpation over the anterior lateral corner of the shoulder and greater tuberosity. nonpainful at the bicipital groove and coracoid. Active range of motion is 130 of forward elevation, 80 external rotation, and internal rotation to the low lumbar. Passive range of motion is symmetrical, limited by some pain, respectively, respectively. No laxity with anterior and posterior stress. Positive Neer and Maldonado impingement signs. 4/5 strength with supraspinatus, infraspinatus and subscapularis. Sensation is intact in the axillary, radial, median and ulnar nerve distribution IMAGING: Labs: Tests: Imaging: - Shoulder MRI: Partial-thickness rotator cuff tear with mild arthritic changes and a small subacromial spur; no muscle atrophy observed. Stable compared to previous imaging. - Shoulder MRI: Partial-thickness rotator cuff tear. Supporting Subjective Information Below: Past Medical History: PAST MEDICAL HISTORY Diagnosis Date Anxiety Essential (primary) hypertension Essential hypertension 11/03/2016 GERD (gastroesophageal reflux disease) Mixed hyperlipidemia NEGATIVE MEDICAL HISTORY Snoring Tear of right rotator cuff, unspecified tear extent, unspecified whether traumatic Tobacco use disorder Past Surgical History: PAST SURGICAL HISTORY Procedure Laterality Date COLONOSCOPY FLX DX W/COLLJ SPEC WHEN PFRMD 05/21/15 normal - 10 year follow up LAPS SURG CHOLECYSTECTOMY W/CHOLANGIOGRAPHY 05/04/2007 Normal C OVARIAN CYSTECTOMY 1994 ? uterine fibroid REDUCTION OF LARGE BREAST 2002 Breast reduction - bilateral Family History: FAMILY HISTORY Problem Relation Age of Onset Cancer Maternal Grandmother lung Diabetes Father Diabetes Maternal Grandfather Ischemic Heart Disease Father Social History: Social History Tobacco Use Smoking status: Every Day Current packs/day: 0 (more content not included)... [facility] 12-15-2024 History of Presen t illness Narrative Rod Caba MD Department of Orthopaedics Orthopaedics [address] [facility] [address] Dept: [phone] Dept December 31, 2024 CHIEF COMPLAINT: Results - Mri of the Right Shoulder HPI Desirae Franklin is a 63-year-old female presenting for follow-up on a partial rotator cuff tear. Desirae reports persistent shoulder pain due to a partial rotator cuff tear, which has been ongoing for over a decade. She recently resumed taking meloxicam 3 weeks ago, which was initially prescribed 2.5 years ago for foot pain, and notes significant improvement in her shoulder pain since restarting the medication. She denies any new symptoms or changes in her condition. ASSESSMENT: M25.819 Shoulder impingement (primary encounter diagnosis) M75.101 Nontraumatic tear of right rotator cuff, unspecified tear extent M25.511, G89.29 Chronic right shoulder pain 1. Shoulder impingement (M25.819) Nontraumatic tear of right rotator cuff, unspecified tear extent (M75.101) Chronic right shoulder pain (M25.511) MRI reveals a partial thickness tear of the rotator cuff with associated inflammation. No significant progression in arthritis or bone spurs. No evidence of muscle atrophy. Patient experiences chronic shoulder pain, currently managed with meloxicam, which has provided relief. - Continue meloxicam daily; transmitted a new prescription to [facility]. - Discussed potential for corticosteroid injection if pain exacerbates. - Educated patient on the nature of the partial tear and the minimal impact of bone spurs on current symptoms. 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 - Ordered standing lab work to monitor renal function and CBC in 3-4 months if meloxicam is used long-term; patient to repeat labs every 6 months thereafter. - Patient understands and agrees with the treatment plan. Will continue to monitor patient for Shoulder impingement (primary encounter diagnosis) Nontraumatic tear of right rotator cuff, unspecified tear extent Chronic right shoulder pain, patient to schedule visit as per follow up discussed. OBJECTIVE: Ms. Desirae Franklin is a pleasant 64 year old in no apparent distress. Gen:LMP 08/23/2016 nl development, obese, no deformities ENT: Normocephalic, normal hearing, moist mucosa CV: Pulses:Radial= 2+ and symmetric, capillary refill < 2 secs, no peripheral edema/varicosities Skin: no rash, bruising or lesions. Good turgor. Psych: cooperative and appropriate, alert and oriented x 3, good mood and affect. Musculoskeletal: Supple range of motion of the cervical spine without pain. Spurling signs are negative. No atrophy of the deltoid and shoulder musculature. Right shoulder is nontender to palpation over the SC joint, clavicle and AC joint. mild tenderness to palpation over the posterior shoulder, Positive tenderness to palpation over the anterior lateral corner of the shoulder and greater tuberosity. nonpainful at the bicipital groove and coracoid. Active range of motion is 130 of forward elevation, 80 external rotation, and internal rotation to the low lumbar. Passive range of motion is symmetrical, limited by some pain, respectively, respectively. No laxity with anterior and posterior stress. Positive Neer and Maldonado impingement signs. 4/5 strength with supraspinatus, infraspinatus and subscapularis. Sensation is intact in the axillary, radial, median and ulnar nerve distribution IMAGING: Labs: Tests: Imaging: - Shoulder MRI: Partial-thickness rotator cuff tear with mild arthritic changes and a small subacromial spur; no muscle atrophy observed. Stable compared to previous imaging. - Shoulder MRI: Partial-thickness rotator cuff tear. Supporting Subjective Information Below: Past Medical History: PAST MEDICAL HISTORY Diagnosis Date Anxiety Essential (primary) hypertension Essential hypertension 11/03/2016 GERD (gastroesophageal reflux disease) Mixed hyperlipidemia NEGATIVE MEDICAL HISTORY Snoring Tear of right rotator cuff, unspecified tear extent, unspecified whether traumatic Tobacco use disorder Past Surgical History: PAST SURGICAL HISTORY Procedure Laterality Date COLONOSCOPY FLX DX W/COLLJ SPEC WHEN PFRMD 05/21/15 normal - 10 year follow up LAPS SURG CHOLECYSTECTOMY W/CHOLANGIOGRAPHY 05/04/2007 Normal [facility] OVARIAN CYSTECTOMY 1994 ? uterine fibroid REDUCTION OF LARGE BREAST 2001 Breast reduction - bilateral Family History: FAMILY HISTORY Problem Relation Age of Onset Cancer Maternal Grandmother lung Diabetes Father Diabetes Maternal Grandfather Ischemic Heart Disease Father Social History: Social History Tobacco Use Smoking status: Every Day Current packs/day: 0.50 Average packs/day: 0.5 packs/day for 25.0 years (12.5 ttl pk-yrs) Types: Cigarettes Smokeless tobacco: Never Tobacco comments: quit for 2 years, started back up 5 years ago. 05/23/19 Vaping Use Vaping status: Never Used Substance Use Topics Alcohol use: Yes Alcohol/week: 3.0 standard drinks of alcohol Types: 3 Glasses of Wine (5oz) per week Drug use: No Medications: Current Outpatient Medications Medication Sig rosuvastatin (CRESTOR) 5 mg tablet Take 1 tablet by mouth daily at bedtime. lisinopril (PRINIVIL) 10 mg tablet Take 1 tablet by mouth once daily. selenium sulfide 2.5 % lotn Apply 1 application to affected area once daily. albuterol HFA (PROVENTIL HFA, VENTOLIN HFA) 90 mcg/actuation inhaler INHALE 2 PUFFS INSTRUCTED EVERY 4 HOURS NEEDED FOR WHEEZING/SHORTNESS OF BREATH. meloxicam (MOBIC) 15 mg tablet Take 1 tablet by mouth once daily. No current facility-administered medications for this visit. Allergies: Atorvastatin and Codeine ROS: General (negative for fatigue, malaise, weight loss/gain) HEENT (negative for headache, earache, recent vision changes, sinus pain, sore throat) Respiratory (no recent shortness of breath, hemoptysis) CV (negative for chest tightness, palpitations) Musculoskeletal (see HPI) Psych (no depression, anxiety) Musculoskeletal: (+) shoulder pain Recording using Melon software for draft documentation of the visit was discussed with the patient/authorized outside energy sales representatives; all questions welcomed and answered. Patient/authorized outside energy sales representatives agreed to proceed Rod Caba MD documented in this encounter [facility] 12-12-2024 Telephone encounter Note Spoke with patient and rescheduled to 03/27/25. [facility] 12-12-2024 Miscellaneous Notes Spoke with patient and rescheduled to 03/27/25. Called patient. NO answer- left voicemail and MyChart message sent. Jane Alamo LPN documented in this encounter [facility] 12-12-2024 Telephone encounter Note Called patient. NO answer- left voicemail and MyChart message sent. Jane Alamo LPN [facility] 12-10-2024 History of Presen t illness Narrative This is a 63 year old female who presents today with: Desirae is a 63-year-old female with a history of HTN, hyperlipidemia, and anxiety, presenting for medication refills physical exam. HISTORY OF PRESENT ILLNESS: Medication Refills: - Missed appointment with Dr. Araiza in July due to personal circumstances. - Currently taking lisinopril and rosuvastatin. - Recently resumed meloxicam use. - Discontinued Wellbutrin. - Has an albuterol inhaler but has not used it in years. Shoulder Pain: - Chronic shoulder pain with a history of torn rotator cuff, bursitis, and bone spurs diagnosed 14 years ago. - Recent MRI performed last week; awaiting results. - Pain is severe enough to limit work to 3-4 hours a day. - Receives cortisone injections in the shoulder. - Pain disrupts sleep; Desirae is a side sleeper. - Following w/ ortho. Weight Management: - Currently 50 lbs overweight. - Previously took phentermine for weight loss but discontinued due to insomnia. - Tried compounded GLP-1 agonists for 3 weeks but stopped due to regulatory changes. - Reports fatigue attributed to being overweight. Tobacco Use: - Smokes approximately half a pack of cigarettes per day. - Previously quit for 2.5 years; plans to quit again by birthday on December 25. - Expresses dislike for the smell of smoke on clothes and hands. Gastroesophageal Reflux Disease: - Experiences heartburn and indigestion frequently. - Uses Tums once or twice a week with immediate relief. - Sleeps with head elevated to manage symptoms. Anxiety: - History of anxiety, previously managed with Wellbutrin. - Reports increased irritability since discontinuing Wellbutrin, but no uncontrolled anxiety/depression. - Experiences dyspnea, attributed to smoking and anxiety. Preventive Care: - Last colonoscopy in May 2015. - Last mammogram on April 04 of the previous year. - Menopausal; experiences heat intolerance. - No history of abnormal Pap smears in the last 20 years. PAST MEDICAL HISTORY: PAST MEDICAL HISTORY Diagnosis Date Essential hypertension 11/03/2016 NEGATIVE MEDICAL HISTORY Snoring PAST SURGICAL HISTORY Procedure Laterality Date COLONOSCOPY FLX DX W/COLLJ SPEC WHEN PFRMD 05/21/15 normal - 10 year follow up LAPS SURG CHOLECYSTECTOMY W/CHOLANGIOGRAPHY 05/04/2007 Normal [facility] OVARIAN CYSTECTOMY 1994 ? uterine fibroid REDUCTION OF LARGE BREAST 2001 Breast reduction - bilateral ALLERGIES Atorvastatin and Codeine MEDICATIONS Current Outpatient Medications Medication Sig meloxicam (MOBIC) 15 mg tablet rosuvastatin (CRESTOR) 5 mg tablet Take 1 tablet by mouth daily at bedtime. lisinopril (PRINIVIL) 10 mg tablet Take 1 tablet by mouth once daily. selenium sulfide 2.5 % lotn Apply 1 application to affected area once daily. albuterol HFA (PROVENTIL HFA, VENTOLIN HFA) 90 mcg/actuation inhaler INHALE 2 PUFFS INSTRUCTED EVERY 4 HOURS NEEDED FOR WHEEZING/SHORTNESS OF BREATH. No current facility-administered medications for this visit. FAMILY HISTORY Problem Relation Age of Onset Cancer Maternal Grandmother lung Diabetes Father Diabetes Maternal Grandfather Ischemic Heart Disease Father Social History Tobacco Use Smoking status: Every Day Current packs/day: 0.50 Average packs/day: 0.5 packs/day for 25.0 years (12.5 ttl pk-yrs) Types: Cigarettes Smokeless tobacco: Never Tobacco comments: quit for 2 years, started back up 5 years ago. 05/23/19 Vaping Use Vaping status: Never Used Substance Use Topics Alcohol use: Yes Alcohol/week: 3.0 standard drinks of alcohol Types: 3 Glasses of Wine (5oz) per week Drug use: No REVIEW OF SYSTEMS Constitutional: (+) fatigue, (-) unintentional weight loss Head: (-) headaches Eyes: (-) visual changes Ears/Nose/Mouth/Throat: (-) hearing loss, (-) dysphagia Neck: (-) neck masses Cardiovascular: (+) lower extremity edema, (-) chest pain, (-) palpitations Respiratory: (+) dyspnea Gastrointestinal: (+) heartburn, (-) diarrhea, (-) constipation, (-) hematochezia, (-) melena Genitourinary: (-) dysuria Musculoskeletal: (+) shoulder pain, (+) foot pain Skin: (-) skin problems Neurological: (-) syncope, (-) seizures, (-) tremors Psychiatric: (+) insomnia, (-) depression, (-) anxiety Endocrine: (+) heat intolerance, (-) polydipsia, (-) polyuria, (-) cold intolerance Hematologic/Lymphatic: (-) easy bruising, (-) abnormal bleeding EXAM: BP 130/88 Pulse 65 Resp 16 Ht 156 cm (5' 1.42) Wt 89.8 kg (198 lb) LMP 08/23/2016 (Approximate) SpO2 96% BMI 36.91 kg/m PHYSICAL EXAM: General Appearance: Well appearing, alert, in no acute distress, well-hydrated, well nourished.. Skin: Skin color, texture, turgor normal, no suspicious rashes or lesions. Head: Normocephalic, no masses, lesions, tenderness or abnormalities. Eyes: Anicteric sclera. Extraocular movements are intact. . Ears: External ears normal, canals clear. Normal TMs bilaterally - + air/fluid Oropharynx: Lips, mucosa, and tongue normal, teeth and gums normal, oropharynx normal. Neck: Supple, no adenopathy; thyroid symmetric, normal size, no bruits. Lungs: Lungs clear to auscultation. No wheezing, rhonchi, rales.. Heart: RRR without murmur, gallop, or rubs. No ectopy. Abdomen: Normal abdominal exam, Abdomen soft, non-tender. Bowel sounds normal. No masses, organomegaly. Extremities: No deformities, edema, skin discoloration, clubbing or cyanosis. Good capillary refill. . Neurologic: Gait normal. ASSESSMENT/PLAN 1. Routine physical examination (Z00.00) - Conducted comprehensive physical examination. - Discussed patient's history of heat intolerance related to menopause. - Advised continuation of regular pelvic exams. - Patient has not received COVID-19 or pneumonia vaccines; declined administration. - Recommended Shingrix vaccine; advised patient to obtain it from a pharmacy and informed about potential flu-like symptoms post-vaccination. 2. Screening for colon cancer (Z12.11) - Last colonoscopy performed in May [address] Huffman. - Ordered referral for repeat colonoscopy. 3. Visit for screening mammogram (Z12.31) - Last mammogram performed on April 04. - Ordered repeat mammogram; advised patient to schedule in April. 4. Mixed hyperlipidemia (E78.2) - Patient recently resumed rosuvastatin therapy. - Ordered repeat fasting lipid panel. 5. Essential (primary) hypertension (I10) - Blood pressure well-controlled on lisinopril. - Refilled lisinopril prescription. 6. Tear of right rotator cuff, unspecified tear extent, unspecified whether traumatic (M75.101) - Patient experiencing significant pain and functional limitation; awaiting MRI results. - Currently taking meloxicam for pain management. - has follow-up with ortho to discuss potential surgical intervention pending MRI findings. Discussed treatment plan and patient voices understanding. Patient's questions answered appropriately. Medications and potential side effects were discussed and patient voices understanding. Return to the office as scheduled or as needed for worsening/no improvement. Myrna Shrestha APRN.CYBER DEFENSE ANALYST Recording using Melon software for draft documentation of the visit was discussed with the patient/authorized outside energy sales representatives; all questions welcomed and answered. Patient/authorized outside energy sales representatives agreed to proceed documented in this encounter [facility] 12-10-2024 Note HNO ID: [id number] Author: MYRNA SHRESTHA APRN.CYBER DEFENSE ANALYST Service: ? Author Type: Nurse Practitioner Type: Progress Notes Filed: 12/10/2024 17:44 Note Text: This is a 63 year old female who presents today with: Desirae is a 63-year-old female with a history of HTN, hyperlipidemia, and anxiety, presenting for medication refills physical exam. HISTORY OF PRESENT ILLNESS: Medication Refills: - Missed appointment with Dr. Araiza in July due to personal circumstances. - Currently taking lisinopril and rosuvastatin. - Recently resumed meloxicam use. - Discontinued Wellbutrin. - Has an albuterol inhaler but has not used it in years. Shoulder Pain: - Chronic shoulder pain with a history of torn rotator cuff, bursitis, and bone spurs diagnosed 14 years ago. - Recent MRI performed last week; awaiting results. - Pain is severe enough to limit work to 3-4 hours a day. - Receives cortisone injections in the shoulder. - Pain disrupts sleep; Desirae is a side sleeper. - Following w/ ortho. Weight Management: - Currently 50 lbs overweight. - Previously took phentermine for weight loss but discontinued due to insomnia. - Tried compounded GLP-1 agonists for 3 weeks but stopped due to regulatory changes. - Reports fatigue attributed to being overweight. Tobacco Use: - Smokes approximately half a pack of cigarettes per day. - Previously quit for 2.5 years; plans to quit again by birthday on December 25. - Expresses dislike for the smell of smoke on clothes and hands. Gastroesophageal Reflux Disease: - Experiences heartburn and indigestion frequently. - Uses Tums once or twice a week with immediate relief. - Sleeps with head elevated to manage symptoms. Anxiety: - History of anxiety, previously managed with Wellbutrin. - Reports increased irritability since discontinuing Wellbutrin, but no uncontrolled anxiety/depression. - Experiences dyspnea, attributed to smoking and anxiety. Preventive Care: - Last colonoscopy in May 2015. - Last mammogram on April 04 of the previous year. - Menopausal; experiences heat intolerance. - No history of abnormal Pap smears in the last 20 years. PAST MEDICAL HISTORY: PAST MEDICAL HISTORY Diagnosis Date Essential hypertension 11/03/2016 NEGATIVE MEDICAL HISTORY Snoring PAST SURGICAL HISTORY Procedure Laterality Date COLONOSCOPY FLX DX W/COLLJ SPEC WHEN PFRMD 05/21/15 normal - 10 year follow up LAPS SURG CHOLECYSTECTOMY W/CHOLANGIOGRAPHY 05/04/2007 Normal [facility] OVARIAN CYSTECTOMY 1994 ? uterine fibroid REDUCTION OF LARGE BREAST 2001 Breast reduction - bilateral ALLERGIES Atorvastatin and Codeine MEDICATIONS Current Outpatient Medications Medication Sig meloxicam (MOBIC) 15 mg tablet rosuvastatin (CRESTOR) 5 mg tablet Take 1 tablet by mouth daily at bedtime. lisinopril (PRINIVIL) 10 mg tablet Take 1 tablet by mouth once daily. selenium sulfide 2.5 % lotn Apply 1 application to affected area once daily. albuterol HFA (PROVENTIL HFA, VENTOLIN HFA) 90 mcg/actuation inhaler INHALE 2 PUFFS INSTRUCTED EVERY 4 HOURS NEEDED FOR WHEEZING/SHORTNESS OF BREATH. No current facility-administered medications for this visit. FAMILY HISTORY Problem Relation Age of Onset Cancer Maternal Grandmother lung Diabetes Father Diabetes Maternal Grandfather Ischemic Heart Disease Father Social History Tobacco Use Smoking status: Every Day Current packs/day: 0.50 Average packs/day: 0.5 packs/day for 25.0 years (12.5 ttl pk-yrs) Types: Cigarettes Smokeless tobacco: Never Tobacco comments: quit for 2 years, started back up 5 years ago. 05/23/19 Vaping Use Vaping status: Never Used Substance Use Topics Alcohol use: Yes Alcohol/week: 3.0 standard drinks of alcohol Types: 3 Glasses of Wine (5oz) per week Drug use: No REVIEW OF SYSTEMS Constitutional: (+) fatigue, (-) unintentional weight loss Head: (-) headaches Eyes: (-) visual changes Ears/Nose/Mouth/Throat: (-) hearing loss, (-) dysphagia Neck: (-) neck masses Cardiovascular: (+) lower extremity edema, (-) chest pain, (-) palpitations Respiratory: (+) dyspnea Gastrointestinal: (+) heartburn, (-) diarrhea, (-) constipation, (-) hematochezia, (-) melena Genitourinary: (-) dysuria Musculoskeletal: (+) shoulder pain, (+) foot pain Skin: (-) skin problems Neurological: (-) syncope, (-) seizures, (-) tremors Psychiatric: (+) insomnia, (-) depression, (-) anxiety Endocrine: (+) heat intolerance, (-) polydipsia, (-) polyuria, (-) cold intolerance Hematologic/Lymphatic: (-) easy bruising, (-) abnormal bleeding EXAM: BP 130/88 Pulse 65 Resp 16 Ht 156 cm (5' 1.42) Wt 89.8 kg (198 lb) LMP 08/23/2016 (Approximate) SpO2 96% BMI 36.91 kg/m? PHYSICAL EXAM: General Appearance: Well appearing, alert, in no acute distress, well-hydrated, well nourished.. Skin: Skin color, texture, turgor normal, no suspicious rashes or lesions. Head (more content not included)... [facility] 12-10-2024 Instructions Myrna Shrestha, SUPERINTENDENT [employer].CYBER DEFENSE ANALYST - 12/10/2024 10:00 AM EDT - Continue taking lisinopril each morning as prescribed. - Continue rosuvastatin (Crestor) for cholesterol; a refill has been sent to your pharmacy. - Start vitamin D 1,000 units by mouth once daily; during months with limited sun exposure you may increase to two tablets a day. - Complete a fasting lipid panel (cholesterol blood test); the lab order is in your chart--plan to fast if possible. - schedule w/ gen surg. - Schedule your next screening mammogram around April; the order is in your chart. - Get shingles vaccine. Health Promotion: - Eat healthy -- go to [employer] to get started - Have a yearly physical - Mammogram yearly after age 40 - Get at least 30 minutes of physical activity daily - Get at least 7 to 8 hours of sleep each night - Reach and maintain a healthy weight - Get help to quit or don't start smoking - Limit alcohol use to one drink or less - Do not use illegal drugs or misuse prescription drugs - Wear a helmet when riding a bike and wear protective gear for sports - Wear a seatbelt in cars and not text and drive - Wear sunscreen documented in this encounter [facility] 11-27-2024 Note HNO ID: [id number] Author: GLENIS LAURA RT(Wendy) Service: ? Author Type: Technologist Type: Progress Notes Filed: 11/27/2024 08:10 Note Text: Radiology Service Progress Note PATIENT NAME: Desirae Franklin DATE OF SERVICE: November 27, 2024 TIME: 8:10 AM PATIENT IDENTITY VERIFICATION COMPLETED USING TWO (2) IDENTIFIERS: Name and Date of confirmed by patient verbally. FALL SCREENING: Has the patient had 2 falls in the last year or 1 fall with injury or currently using an Ambulatory Assistive Device (Walker, Cane, Wheelchair, Crutches, etc.)? No PATIENT GENDER DATA: Assigned female at . status: : No status: NO. PATIENT RELEVANT IMPLANT DATA REVIEWED: Yes PATIENT PRESENTS WITH AN IMPLANTABLE OR ATTACHED GREASER HELPER: No RADIOLOGY DEPARTMENT: MR; Exam(s) Completed: Upper MSK: Shoulder, right . Lavender Administered: No PERIPHERAL IV DATA: Not applicable SIGNED BY: RT Servando(R) November 27, 2024 8:10 AM [facility] 11-17-2024 Note HNO ID: [id number] Author: ROD CABA MD Service: ? Author Type: Physician Type: Progress Notes Filed: 11/17/2024 23:50 Note Text: Rod Caba MD Department of Orthopaedics Orthopaedics [address] [facility] [address] Dept: [phone] Dept November 17, 2024 CHIEF COMPLAINT: New and Pain of the Right Shoulder Desirae is a 63-year-old female presenting for evaluation of chronic right shoulder pain. HPI Right Shoulder Pain: - Chronic pain in the right shoulder, both anteriorly and posteriorly. - Pain radiates down the arm and is described as constant. - Significant limitation in forward elevation and internal rotation; able to perform external rotation without difficulty. - Pain interferes with sleep; uses the left hand to assist in moving the right arm at night. - Cortisone injection in June provided no relief. - Previous MRI 12 years ago showed a partial tear; no surgery performed at that time. - Recent X-ray showed intact subacromial space, no glenohumeral arthritis, and mild AC joint arthrosis. - Pain with empty can testing; subscapularis and infraspinatus testing limited by pain. 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 - Recent activities include painting a house and moving, which may have exacerbated symptoms. ASSESSMENT: M25.819 Shoulder impingement (primary encounter diagnosis) M75.101 Nontraumatic tear of right rotator cuff, unspecified tear extent M25.511, G89.29 Chronic right shoulder pain 1. Shoulder impingement (M25.819) 2. Nontraumatic tear of right rotator cuff, unspecified tear extent (M75.101) 3. Chronic right shoulder pain (M25.511) - Right shoulder X-ray reviewed, showing intact subacromial space, no glenohumeral arthritis, and mild AC joint arthrosis. - Physical exam reveals pain with empty can testing (3+/5), subscapularis and infraspinatus testing (4+/5) limited by pain. - Limited forward elevation to 130 degrees with pain, external rotation to 80 degrees, and internal rotation to low lumbar area. - Previous MRI indicated a partial tear; recent cortisone injection in June provided no relief. - Ordered new MRI to assess current status of rotator cuff tear. - Discussed potential need for surgical repair depending on MRI findings; patient understands the recovery process and agrees to wait for MRI results before considering further interventions. - Advised against cortisone injection today to avoid delaying potential surgical intervention. - Patient to schedule MRI and follow-up appointment to review results and discuss treatment options. Will continue to monitor patient for Shoulder impingement (primary encounter diagnosis) Nontraumatic tear of right rotator cuff, unspecified tear extent Chronic right shoulder pain, patient to schedule visit as per follow up discussed. PLAN: As above FOLLOW UP INSTRUCTIONS: After MRI OBJECTIVE: Ms. Desirae Franklin is a pleasant 63 year old in no apparent distress. Gen:LMP 08/23/2016 nl development, obese, no deformities ENT: Normocephalic, normal hearing, moist mucosa CV: Pulses:Radial= 2+ and symmetric, capillary refill < 2 secs, no peripheral edema/varicosities Skin: no rash, bruising or lesions. Good turgor. Psych: cooperative and appropriate, alert and oriented x 3, good mood and affect. Musculoskeletal: - Musculoskeletal: - Right Shoulder: - Pain with empty can test; strength approximately 3/5. - Subscapularis and infraspinatus strength 4/5, limited by pain. - ROM: Forward elevation painful at 130 degrees; external rotation to 80 degrees; internal rotation to low lumbar area. IMAGING: Labs: Tests: Imaging: - Right Shoulder X-ray: Intact subacromial space, no glenohumeral arthritis, mild AC joint arthrosis - Right Shoulder MRI: Partial tear of the rotator cuff Supporting Subjective Information Below: Past Medical History: PAST MEDICAL HISTORY Diagnosis Date Essential hypertension 11/03/2016 NEGATIVE MEDICAL HISTORY Snoring Past Surgical History: PAST SURGICAL HISTORY Procedure Laterality Date COLONOSCOPY FLX DX W/COLLJ SPEC WHEN PFRMD 05/21/15 normal - 10 year follow up LAPS SURG CHOLECYSTECTOMY W/CHOLANGIOGRAPHY 05/04/2007 Normal IOC OVARIAN CYSTECTOMY 1994 ? uterine fibroid REDUCTION OF LARGE BREAST 2001 Breast reduction - bilateral Family History: FAMILY HISTORY Problem Relation Age of Onset Cancer Maternal Grandmother lung Diabetes Father Diabetes Maternal Grandfather Ischemic Heart Disease Father Social History: Social History Tobacco Use Smoking status: Every Day Current packs/day: 0.50 Average packs/day: 0.5 packs/day for 25.0 years (12.5 ttl pk-yrs) Types: Cigarettes Smokeless tobacco: Never Tobacco comments: quit for 2 years, started back up 5 years ago. 05/23/19 Vaping Use Vaping status: Never Used Substance Use Topics Alcoho (more content not included)... [facility] 11-17-2024 History of Presen t illness Narrative Rod Caba MD Department of Orthopaedics Orthopaedics [address] [facility] [address] Dept: [phone] Dept November 17, 2024 CHIEF COMPLAINT: New and Pain of the Right Shoulder Desirae is a 63-year-old female presenting for evaluation of chronic right shoulder pain. HPI Right Shoulder Pain: - Chronic pain in the right shoulder, both anteriorly and posteriorly. - Pain radiates down the arm and is described as constant. - Significant limitation in forward elevation and internal rotation; able to perform external rotation without difficulty. - Pain interferes with sleep; uses the left hand to assist in moving the right arm at night. - Cortisone injection in June provided no relief. - Previous MRI 12 years ago showed a partial tear; no surgery performed at that time. - Recent X-ray showed intact subacromial space, no glenohumeral arthritis, and mild AC joint arthrosis. - Pain with empty can testing; subscapularis and infraspinatus testing limited by pain. 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 - Recent activities include painting a house and moving, which may have exacerbated symptoms. ASSESSMENT: M25.819 Shoulder impingement (primary encounter diagnosis) M75.101 Nontraumatic tear of right rotator cuff, unspecified tear extent M25.511, G89.29 Chronic right shoulder pain 1. Shoulder impingement (M25.819) 2. Nontraumatic tear of right rotator cuff, unspecified tear extent (M75.101) 3. Chronic right shoulder pain (M25.511) - Right shoulder X-ray reviewed, showing intact subacromial space, no glenohumeral arthritis, and mild AC joint arthrosis. - Physical exam reveals pain with empty can testing (3+/5), subscapularis and infraspinatus testing (4+/5) limited by pain. - Limited forward elevation to 130 degrees with pain, external rotation to 80 degrees, and internal rotation to low lumbar area. - Previous MRI indicated a partial tear; recent cortisone injection in June provided no relief. - Ordered new MRI to assess current status of rotator cuff tear. - Discussed potential need for surgical repair depending on MRI findings; patient understands the recovery process and agrees to wait for MRI results before considering further interventions. - Advised against cortisone injection today to avoid delaying potential surgical intervention. - Patient to schedule MRI and follow-up appointment to review results and discuss treatment options. Will continue to monitor patient for Shoulder impingement (primary encounter diagnosis) Nontraumatic tear of right rotator cuff, unspecified tear extent Chronic right shoulder pain, patient to schedule visit as per follow up discussed. PLAN: As above FOLLOW UP INSTRUCTIONS: After MRI OBJECTIVE: Ms. Desirae Franklin is a pleasant 63 year old in no apparent distress. Gen:LMP 08/23/2016 nl development, obese, no deformities ENT: Normocephalic, normal hearing, moist mucosa CV: Pulses:Radial= 2+ and symmetric, capillary refill < 2 secs, no peripheral edema/varicosities Skin: no rash, bruising or lesions. Good turgor. Psych: cooperative and appropriate, alert and oriented x 3, good mood and affect. Musculoskeletal: - Musculoskeletal: - Right Shoulder: - Pain with empty can test; strength approximately 3/5. - Subscapularis and infraspinatus strength 4/5, limited by pain. - ROM: Forward elevation painful at 130 degrees; external rotation to 80 degrees; internal rotation to low lumbar area. IMAGING: Labs: Tests: Imaging: - Right Shoulder X-ray: Intact subacromial space, no glenohumeral arthritis, mild AC joint arthrosis - Right Shoulder MRI: Partial tear of the rotator cuff Supporting Subjective Information Below: Past Medical History: PAST MEDICAL HISTORY Diagnosis Date Essential hypertension 11/03/2016 NEGATIVE MEDICAL HISTORY Snoring Past Surgical History: PAST SURGICAL HISTORY Procedure Laterality Date COLONOSCOPY FLX DX W/COLLJ SPEC WHEN PFRMD 05/21/15 normal - 10 year follow up LAPS SURG CHOLECYSTECTOMY W/CHOLANGIOGRAPHY 05/04/2007 Normal IOC OVARIAN CYSTECTOMY 1994 ? uterine fibroid REDUCTION OF LARGE BREAST 2002 Breast reduction - bilateral Family History: FAMILY HISTORY Problem Relation Age of Onset Cancer Maternal Grandmother lung Diabetes Father Diabetes Maternal Grandfather Ischemic Heart Disease Father Social History: Social History Tobacco Use Smoking status: Every Day Current packs/day: 0.50 Average packs/day: 0.5 packs/day for 25.0 years (12.5 ttl pk-yrs) Types: Cigarettes Smokeless tobacco: Never Tobacco comments: quit for 2 years, started back up 5 years ago. 05/23/19 Vaping Use Vaping status: Never Used Substance Use Topics Alcohol use: Yes Alcohol/week: 3.0 standard drinks of alcohol Types: 3 Glasses of Wine (5oz) per week Drug use: No Medications: Current Outpatient Medications Medication Sig lisinopril (PRINIVIL) 10 mg tablet Take 1 tablet by mouth once daily. selenium sulfide 2.5 % lotn Apply 1 application to affected area once daily. rosuvastatin (CRESTOR) 5 mg tablet Take 1 tablet by mouth daily at bedtime. albuterol HFA (PROVENTIL HFA, VENTOLIN HFA) 90 mcg/actuation inhaler INHALE 2 PUFFS INSTRUCTED EVERY 4 HOURS NEEDED FOR WHEEZING/SHORTNESS OF BREATH. buPROPion XL (WELLBUTRIN XL) 150 mg 24 hr tablet Take 1 tablet by mouth once daily. No current facility-administered medications for this visit. Allergies: Atorvastatin and Codeine ROS: General (negative for fatigue, malaise, weight loss/gain) HEENT (negative for headache, earache, recent vision changes, sinus pain, sore throat) Respiratory (no recent shortness of breath, hemoptysis) CV (negative for chest tightness, palpitations) Musculoskeletal (see HPI) Psych (no depression, anxiety) Constitutional: (+) sleep disturbance Musculoskeletal: (+) right shoulder pain, (+) difficulty lifting arm overhead Neurological: (+) vertigo Recording using ambient [employer] software for draft documentation of the visit was discussed with the patient/authorized outside energy sales representatives; all questions welcomed and answered. Patient/authorized outside energy sales representatives agreed to proceed Rod Caba MD documented in this encounter [facility] 11-11-2024 Telephone encounter Note The patient returned call. She has all the records from [facility] and will bring to her appointment. [facility] 11-11-2024 Miscellaneous Notes The patient returned call. She has all the records from [facility] and will bring to her appointment. Patient has appointment with Dr. Caba on Friday 11/17. Need to know laterality and has she had any recent x-rays in the past year? If she has recent x-rays needs to bring a copy on a CD to appointment. If not she will need an x-ray prior to her appointment. documented in this encounter [facility] 11-11-2024 Telephone encounter Note Patient has appointment with Dr. Caba on Friday 11/17. Need to know laterality and has she had any recent x-rays in the past year? If she has recent x-rays needs to bring a copy on a CD to appointment. If not she will need an x-ray prior to her appointment. [facility] 11-10-2024 Telephone encounter Note Fax received from [facility] pharmacy for refill of lisinopril. Patient is overdue for 6 month exam. Prescription Refill Information The patient has been identified by name and date of : Yes Caregiver verified no other encounters exist for this prescription request: Yes Caregiver confirmed with patient/requestor that no other refills are due, in the near future, with this provider at this time: Yes The last office visit in the department: 01/23/24 Does the patient have a future office visit with this provider/department: No. Pt canceled appt in Jul. [employer] MESSAGE SENT TO PT TO MAKE AN APPOINTMENT TO AVOID DELAYS Requested Prescriptions Pending Prescriptions Disp Refills lisinopril (PRINIVIL) 10 mg tablet 90 tablet 3 Sig: Take 1 tablet by mouth once daily. Glenis Hsieh MA November 10, 2024 3:11 PM [facility] 11-10-2024 Miscellaneous Notes Fax received from [facility] pharmacy for refill of lisinopril. Patient is overdue for 6 month exam. Prescription Refill Information The patient has been identified by name and date of : Yes Caregiver verified no other encounters exist for this prescription request: Yes Caregiver confirmed with patient/requestor that no other refills are due, in the near future, with this provider at this time: Yes The last office visit in the department: 01/23/24 Does the patient have a future office visit with this provider/department: No. Pt canceled appt in Jul. [employer]AS[employer] MESSAGE SENT TO PT TO MAKE AN APPOINTMENT TO AVOID DELAYS Requested Prescriptions Pending Prescriptions Disp Refills lisinopril (PRINIVIL) 10 mg tablet 90 tablet 3 Sig: Take 1 tablet by mouth once daily. Glenis Hsieh MA November 10, 2024 3:11 PM documented in this encounter [facility] 05-06-2024 Note HNO ID: [id number] Author: TRISHA LYONS PT Service: ? Author Type: Physical Therapist Type: Progress Notes Filed: 05/06/2024 10:04 Note Text: 05/06/2024 [facility] REHABILITATION AND SPORTS THERAPY PHYSICAL THERAPY DISCONTINUANCE OF CARE Plan of Care Period: Start of Care Date: 01/24/24 Last Visit Date: 01/24/2024 Therapy Program: Patient did not return for follow up care as planned. Please refer to last visit note for interventions provided for this episode of care. Patient reported resolution of symptoms via MyChart. Assessment: Unable to formally assess goal achievement. - Symptoms reportedly resolved. Reason for Discontinuation of Care: Patient has not returned to therapy or scheduled additional follow-up appointments. Trisha Lyons, PT [facility] 04-07-2024 Note Formatting of this n ote might be different from the original. April 07, 2024 PID: [id number] Desirae Bocanegra Masoudboris [address] [place] [address] Dear Ms. Franklin, We are pleased to inform you that the results of your recent breast imaging exam on 04/04/2024 are normal. Breast tissue can be either dense or not dense. Dense tissue makes it harder to find breast cancer on a mammogram and also raises the risk of developing breast cancer. Your breast tissue is not dense. Talk to your healthcare provider about breast density, risks for breast cancer, and your individual situation. Early detection of cancer is very important. We also understand recommendations regarding breast cancer screening are controversial. Please discuss with your primary care provider which strategy is best for you and whether a mammogram is right for you. Your imaging studies and report will be kept on file at [facility] as part of your permanent medical record and are available for your continuing care. Thank you for allowing us to help in meeting your health care needs. Sincerely, Dr. Chavez Interpreting Radiologist [facility] (Normal over 40) [facility] 04-07-2024 Miscellaneous Notes April 07, 2024 PID: [id number] Desirae Franklin [address] [place] [address] Dear Ms. Franklin, We are pleased to inform you that the results of your recent breast imaging exam on 04/04/2024 are normal. Breast tissue can be either dense or not dense. Dense tissue makes it harder to find breast cancer on a mammogram and also raises the risk of developing breast cancer. Your breast tissue is not dense. Talk to your healthcare provider about breast density, risks for breast cancer, and your individual situation. Early detection of cancer is very important. We also understand recommendations regarding breast cancer screening are controversial. Please discuss with your primary care provider which strategy is best for you and whether a mammogram is right for you. Your imaging studies and report will be kept on file at [facility] as part of your permanent medical record and are available for your continuing care. Thank you for allowing us to help in meeting your health care needs. Sincerely, Dr. Chavez Interpreting Radiologist [facility] (Normal over 40) documented in this encounter [facility] 04-04-2024 History of Presen t illness Narrative Radiology Service Progress Note PATIENT NAME: Desirae Franklin DATE OF SERVICE: April 04, 2024 TIME: 2:25 PM PATIENT IDENTITY VERIFICATION COMPLETED USING TWO (2) IDENTIFIERS: Name and Date of confirmed by patient verbally. FALL SCREENING: Has the patient had 2 falls in the last year or 1 fall with injury or currently using an Ambulatory Assistive Device (Walker, Cane, Wheelchair, Crutches, etc.)? No PATIENT GENDER DATA: Female. status: : No status: NO. PATIENT RELEVANT IMPLANT DATA REVIEWED: Not Applicable PATIENT PRESENTS WITH AN IMPLANTABLE OR ATTACHED GREASER HELPER: No RADIOLOGY DEPARTMENT: Mammography PERIPHERAL IV DATA: Not applicable SIGNED BY: RT Shar(R) April 04, 2024 2:25 PM documented in this encounter [facility] 01-24-2024 Note HNO ID: [id number] Author: TRISHA LYONS PT Service: ? Author Type: Physical Therapist Type: Progress Notes Filed: 01/25/2024 12:39 Note Text: Episode Visit Count: 1 Therapist That Will Accept/Oversee The Plan Of Care: Gavi Start of Care Date: 01/24/24 Onset Date: 01/20/24 (previous episode in November) Patient Identified by Name and Date of : Yes REHABILITATION AND SPORTS THERAPY PHYSICAL THERAPY EVALUATION PLAN OF CARE: Assessment: Desirae Franklin presents with chief complaint of dizziness that interferes with bending (laying to L) . She presents with impairments in balance and posture. PROMIS? (Patient-Reported Outcomes Measurement Information System) scores were reviewed and identified as within normal limits. Prognosis for therapy is Good due to: current objective clinical presentation, within-session changes . 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 She will benefit from skilled therapy services to meet the goals established for this plan of care as noted below. Goals for Episode of Care: created on 01/24/24 through 04/23/24 Patient will be able to correct postural deviations independently in order to allow for normal mechanics, to decrease current pain and prevent future recurrence. Patient will have negative positional testing for BPPV. Patient/family member will be independent in performing self PRT. Patient will verbalize the understanding of the diagnosis BPPV, how to recognize symptoms and what to do if they return. Patient will demonstrate normal active cervical spine range of motion to restore posture and complete ADLS with trace report of dizziness/imbalance. Patient will be independent with home exercise program and progression. Patient will return to prior level of function with all activities of daily living with trace reports of dizziness. 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 The above goals and plan of care were discussed and agreed upon by patient/family. SUBJECTIVE: Presents with reports of wooziness sensation since Sunday. Had initial episode of severe dizziness with spinning sensation in November. Reesloved completely over time., Recurred on Sunday with woozy feeling that gradually increased. Saw PCP yesterday, some decrease in symptoms since then but still with difficulty looking down to L. 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 Recreation / Current Exercise: active, nothing formal Hobbies / Interests: gardening, michelle Intake Information: Prescription present Previous Treatment: None Falls Interview: No positive findings with falls interview Concussion History of Concussion: No Vestibular Symptoms present for: months Symptom onset: sudden Dizziness: Yes Description: dizziness, off sensation, woozy Symptoms worsened by: lying down, rolling left, bending, in the morning Imbalance: Yes Imbalance triggered by: Bending (loking down to L) Fall Assessment: No falls Nausea: no Motion Sickness: None Headache: No Neck Symptoms: Yes Description: soreness (stiffness) Location comment: L UE pain after raking, shoulder and neck locked up Jaw Symptoms: No Ear Symptoms: No Hearing Changes: No recent changes Tinnitus: No recent changes Sleeping Position: Side lying left, Prone - head either right or left, Side lying right Sleep Affected by Symptoms: Not affected by dizziness Pain: Pain Pain Level: 0 Post Treatment Pain Post Treatment Pain Level: No Change Post Treatment Symptoms: Decreased dizziness PROMIS Scales 01/23/2024 Higher is Better Phys Func - Score 47 (within normal limits) Phys Func - Percentile 38 Self-Eff Symptom - Score 45 (Average) Self-Eff Symptom - Percentile 31 T-scores: mean of general population = 50. 5 points is clinically meaningfully difference Percentiles provide an indication of how the patient's score ranks in relation to the general population. Higher percentile rankings indicate better function/quality of life. 50th percentile is the average of the general population and indicates half of respondents had a worse score. OBJECTIVE MEASURES WITH LEVEL OF FUNCTION: Pos (more content not included)... [facility] 01-24-2024 History of Presen t illness Narrative Episode Visit Count: 1 Therapist That Will Accept/Oversee The Plan Of Care: Gavi Start of Care Date: 01/24/24 Onset Date: 01/20/24 (previous episode in November) Patient Identified by Name and Date of : Yes RE[facility]ABILITATION [facility] SPORTS THERAPY PHYSICAL THERAPY EVALUATION PLAN OF CARE: Assessment: Desirae Franklin presents with chief complaint of dizziness that interferes with bending (laying to L) . She presents with impairments in balance and posture. PROMIS (Patient-Reported Outcomes Measurement Information System) scores were reviewed and identified as within normal limits. Prognosis for therapy is Good due to: current objective clinical presentation, within-session changes . 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 She will benefit from skilled therapy services to meet the goals established for this plan of care as noted below. Goals for Episode of Care: created on 01/24/24 through 04/23/24 Patient will be able to correct postural deviations independently in order to allow for normal mechanics, to decrease current pain and prevent future recurrence. Patient will have negative positional testing for BPPV. Patient/family member will be independent in performing self PRT. Patient will verbalize the understanding of the diagnosis BPPV, how to recognize symptoms and what to do if they return. Patient will demonstrate normal active cervical spine range of motion to restore posture and complete ADLS with trace report of dizziness/imbalance. Patient will be independent with home exercise program and progression. Patient will return to prior level of function with all activities of daily living with trace reports of dizziness. 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 The above goals and plan of care were discussed and agreed upon by patient/family. SUBJECTIVE: Presents with reports of wooziness sensation since Sunday. Had initial episode of severe dizziness with spinning sensation in November. Reesloved completely over time., Recurred on Sunday with woozy feeling that gradually increased. Saw PCP yesterday, some decrease in symptoms since then but still with difficulty looking down to L. 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 Recreation / Current Exercise: active, nothing formal Hobbies / Interests: gardening, michelle Intake Information: Prescription present Previous Treatment: None Falls Interview: No positive findings with falls interview Concussion History of Concussion: No Vestibular Symptoms present for: months Symptom onset: sudden Dizziness: Yes Description: dizziness, off sensation, woozy Symptoms worsened by: lying down, rolling left, bending, in the morning Imbalance: Yes Imbalance triggered by: Bending (loking down to L) Fall Assessment: No falls Nausea: no Motion Sickness: None Headache: No Neck Symptoms: Yes Description: soreness (stiffness) Location comment: L UE pain after raking, shoulder and neck locked up Jaw Symptoms: No Ear Symptoms: No Hearing Changes: No recent changes Tinnitus: No recent changes Sleeping Position: Side lying left, Prone - head either right or left, Side lying right Sleep Affected by Symptoms: Not affected by dizziness Pain: Pain Pain Level: 0 Post Treatment Pain Post Treatment Pain Level: No Change Post Treatment Symptoms: Decreased dizziness PROMIS Scales 01/23/2024 Higher is Better Phys Func - Score 47 (within normal limits) Phys Func - Percentile 38 Self-Eff Symptom - Score 45 (Average) Self-Eff Symptom - Percentile 31 T-scores: mean of general population = 50. 5 points is clinically meaningfully difference Percentiles provide an indication of how the patient's score ranks in relation to the general population. Higher percentile rankings indicate better function/quality of life. 50th percentile is the average of the general population and indicates half of respondents had a worse score. OBJECTIVE MEASURES WITH LEVEL OF FUNCTION: Posture / Alignment Posture: Forward head Oculomotor Testing Fixation Present Ocular ROM: WNL Spontaneous Nystagmus: No nystagmus Gaze Evoked Nystagmus: Not Present Smooth pursuit: Horizontal, Vertical and Diagonal all WNL Saccadic eye movements: Horizontal, vertical and oblique all WNL. Head Thrusts: Negative VOR cancelation: Negative VOR to slow head movements: Negative Positional Testing Right Mai-Hallpike: Asymptomatic, No nystagmus Left Mai-Hallpike: Symptomatic, With delay, Less than 60 seconds (+ nystagmus) Positional Test Comments: symptoms and testing consistent with L BPPV with good response to Modified Eply L Cervical Spine ROM Cervical ROM : Limitation AROM Cervical Protrusion AROM: Normal Cervical Retraction AROM: Minimal limitation Cervical Flexion AROM: Normal Cervical Extension AROM: Minimal limitation Cervical Side-Bend Right AROM: Normal Cervical Side-Bend Left AROM: Normal Cervical Rotation Right AROM: Normal Cervical Rotation Left AROM: Normal Education: Education Learning Preferences: Demonstration, Explanation Barriers: None Learning/educational needs: Home exercise program, Plan of Care, Posture Education Provided: Yes, see treatment interventions for education provided Education Provided To: Patient Education Mode/Type: Video, Performance, Demonstration, Explanation/Discussion Response to Education/Teach Back: States/Identifies TREATMENT: PT Treatment Interventions: Canalith Repositioning Evaluation Canalith Repositionin: Modified Eply L side 2x 2: verbal instruction of self manuever with visual demonstration Skilled Intervention: Professional judgment was used to determine specific treatment interventions based on assessment of symptoms. Physically assisted patient through each step of repositioning. Verbal and tactile cues provided to patient to assist in moving between each position of maneuver in correct sequence. Patient education including handouts provided regarding self repostitioning techniques to be performed at home. Video instruction provided. Billing * Evaluation Low Complexity: 1 Unit * Canalith Repositionin unit Skilled Treatment Time Minutes (timed and untimed codes): 37 Total Session Time (minutes): 37 Session Start Time : 1512 Session Stop Time : 1549 Trisha Lyosn PT documented in this encounter [facility] 01-23-2024 Note Addended by: Makenzie ARAIZA on: 01/23/2024 08:46 AM Modules accepted: Orders [facility] 01-23-2024 Miscellaneous Notes Addended by: BLANCO ARAIZA on: 01/23/2024 08:46 AM Modules accepted: Orders documented in this encounter [facility] 01-23-2024 Instructions Blanco Araiza MD - 01/23/2024 8:38 AM EDT Vaccine is shingrix for shingles. Add co enzyme q 10 for cholesterol med to help with aches. documented in this encounter [facility] 01-23-2024 History of Presen t illness Narrative Patient presents with: Follow Up HPI: Patient presents today for office visit for follow up. Vertigo x 2 days. Started with it on Sunday. Has had this in the past also. Denies room spinning more of just being off balance. Room may spin some in the morning but not much. Denies chest pain, shortness of breath, nausea, vomiting. Mild headache but feels that is more sinus related. Saw Myrna 11/23/23 and given Antivert which made her too tired so she hasn't used it anymore. Has started again two days ago. Note from Myrna copied and pasted from her note: Spinning room. No nausea. No vomiting. Refers both directions. Yesterday was the worse -- because she was working and had to look down a lot. Did break out in a sweat yesterday, but not sure if because humid. No chest pain. No palpitations associated w/ the dizziness. No SOB. Eating and drinking okay. No numbness or tingling. No visual changes. No problems with speech or swallow. States that it will sometimes feel like her eyes are darting. No head injuries. Some stress related headaches -- posterior neck/head. Not as much room spinning currently but balance does not feel right. Did occur when looking to the left. No headache, no focal numbness or weakness. Feels like she is on a boat No hearing loss or tinnitus. No vision or hearing changes. Just has been two episodes and was fine in between. Wants to discuss Wellbutrin today. When she first was ordered this didn't start right away she waited. Then after she started was taking regular and stopped without weaning. This is when she had the first episode of dizziness. Now has been back to taking regular and not sure she needs to continue? Does feel is working after much discussion. Discussed staying on them for at least six months or year. HTN: Patient is compliant with meds Yes Monitors bp at home: No. Denies side effects: Yes. Chest pain: No. Dyspnea: No. Edema: No. Palpitations: sometimes. Syncope: No. Headache: mild. Believes more sinus. Dizziness: Yes. The 10-year ASCVD risk score (Moose DECKER, et al., 2019) is: 11.5% Values used to calculate the score: Age: 63 years Sex: Female Is Non- : No Diabetic: No Tobacco smoker: Yes Systolic Blood Pressure: 122 mmHg Is BP treated: Yes HDL Cholesterol: 45 mg/dL Total Cholesterol: 237 mg/dL Latest Ref Rng 11/23/2023 WBC 3.70 - 11.00 k/uL 6.70 RBC 3.90 - 5.20 m/uL 4.62 Hemoglobin 11.5 - 15.5 g/dL 14.0 Hematocrit 36.0 - 46.0 % 43.4 MCV 80.0 - 100.0 fL 93.9 MCH 26.0 - 34.0 pg 30.3 MCHC 30.5 - 36.0 g/dL 32.3 RDW-CV 11.5 - 15.0 % 13.3 Platelet Count 150 - 400 k/uL 186 MPV 9.0 - 12.7 fL 11.5 Neut% % 55.7 Abs Neut (ANC) 1.45 - 7.50 k/uL 3.73 Lymph% % 31.9 Abs Lymph 1.00 - 4.00 k/uL 2.14 Salem% % 7.5 Abs Salem <0.87 k/uL 0.50 Eosin% % 3.6 Abs Eosin <0.46 k/uL 0.24 Baso% % 1.0 Abs Baso <0.11 k/uL 0.07 Immature Gran % % 0.3 IMMATURE GRANS (ABS) <0.10 k/uL <0.03 NRBC /100 WBC 0.0 Absolute nRBC <0.01 k/uL <0.01 DTYPE Auto Protein, Total 6.3 - 8.0 g/dL 6.8 Albumin 3.9 - 4.9 g/dL 4.3 Calcium 8.5 - 10.2 mg/dL 9.6 Bilirubin, Total 0.2 - 1.3 mg/dL 0.5 Alkaline Phosphatase 34 - 123 U/L 99 AST 13 - 35 U/L 22 ALT 7 - 38 U/L 26 Glucose 74 - 99 mg/dL 104 (H) BUN 7 - 21 mg/dL 15 Creatinine 0.58 - 0.96 mg/dL 0.77 Sodium 136 - 144 mmol/L 141 Potassium 3.7 - 5.1 mmol/L 4.8 Chloride 97 - 105 mmol/L 105 CO2 22 - 30 mmol/L 21 (L) Anion Gap 9 - 18 mmol/L 15 eGFR >=60 mL/min/1.73m 88 Total Cholesterol, Nonfasting <200 mg/dL 237 (H) Triglycerides, Nonfasting <150 mg/dL 110 HDL Cholesterol, Nonfasting >39 mg/dL 45 LDL Cholesterol, Nonfasting <100 mg/dL 170 (H) Non HDL Cholesterol, Nonfasting <130 mg/dL 192 (H) VLDL Cholesterol, Nonfasting <30 mg/dL 22 Total Chol/HDL Ratio, Nonfasting <5.10 mg/dL 5.27 (H) LDL/HDL Ratio, Nonfasting <2.54 mg/dL 3.78 (H) Hemoglobin A1C 4.3 - 5.6 % 5.5 Estimated Average Glucose mg/dL 111 TSH 0.270 - 4.200 mIU/L 2.550 Legend: (H) High (L) Low MEDICATIONS: Current Outpatient Medications Medication Sig lisinopril (PRINIVIL) 10 mg tablet Take 1 tablet by mouth once daily. meclizine (ANTIVERT) 12.5 mg tab Take 1-2 tablets by mouth every 6 hours as needed (dizziness). selenium sulfide 2.5 % lotn Apply 1 application to affected area once daily. albuterol HFA (PROVENTIL HFA, VENTOLIN HFA) 90 mcg/actuation inhaler INHALE 2 PUFFS INSTRUCTED EVERY 4 HOURS NEEDED FOR WHEEZING/SHORTNESS OF BREATH. No current facility-administered medications for this visit. ALLERGIES: ALLERGIES Allergen Reactions Atorvastatin Myalgia Codeine Shortness of Breath PAST MEDICAL HISTORY Diagnosis Date Essential hypertension 11/03/2016 NEGATIVE MEDICAL HISTORY Snoring PAST SURGICAL HISTORY Procedure Laterality Date COLONOSCOPY FLX DX W/COLLJ SPEC WHEN PFRMD 05/21/15 normal - 10 year follow up LAPS SURG CHOLECYSTECTOMY W/CHOLANGIOGRAPHY 05/04/2007 Normal [facility] OVARIAN CYSTECTOMY 1994 ? uterine fibroid REDUCTION OF LARGE BREAST 2002 Breast reduction - bilateral FAMILY HISTORY Problem Relation Age of Onset Cancer Maternal Grandmother lung Diabetes Father Diabetes Maternal Grandfather Ischemic Heart Disease Father Social History Tobacco Use Smoking status: Every Day Packs/day: 0.50 Years: 25.00 Additional pack years: 0.00 Total pack years: 12.50 Types: Cigarettes Smokeless tobacco: Never Tobacco comments: quit for 2 years, started back up 5 years ago. 05/23/19 Substance Use Topics Alcohol use: Yes Alcohol/week: 3.0 standard drinks of alcohol Types: 3 Glasses of Wine (5oz) per week Drug use: No Reviewed current medications, allergies, past medical history, surgical history, family history and social history today. REVIEW OF SYSTEMS All other reviewed and negative other than HPI. HEALTH MAINTENANCE: Reviewed health maintenance issues today and recommended the following in detail. Pneumococcal Vaccine(1 of 2 - PCV) Never done DTaP,Tdap,Td Vaccine(1 - Tdap) Never done Shingrix Vaccine(1 of 2) Never done Cervical Cancer Screening due on 10/28/2019 RSV Vaccine(1 - 1-dose 60+ series) Never done Covid-19 Vaccine( - season) due on 03/09/2023 Behavioral Health Screening Never done Mammogram Screening due on 04/02/2024 VITALS: BP 122/72 Pulse (!) 57 Wt 87.1 kg (192 lb) LMP 08/23/2016 (Approximate) SpO2 97% BMI 36.28 kg/m Last 4 Encounter Wt Readings: Date: Wt: 11/23/2023 94.3 kg (208 lb) 07/16/2023 94.4 kg (208 lb 3.2 oz) 03/23/2023 93.4 kg (206 lb) 09/08/2022 94.3 kg (208 lb) PHYSICAL EXAMINATION: General appearance: Well appearing, alert, in no acute distress, well-hydrated, well nourished. Skin: Skin color, texture, turgor normal, no suspicious rashes or lesions Head: Normocephalic, no masses, lesions, tenderness or abnormalities Eyes: Anicteric sclera. Pupils are equally round and reactive to light. Extraocular movements are intact. Few beats of nystagmus with far horizontal gaze. Negative hallpike but symptoms do sound like vertigo. Ears: External ears normal, canals clear Nose/Sinuses: Nares normal, septum midline, mucosa normal, no drainage or sinus tenderness Oropharynx: Lips, mucosa, and tongue normal, teeth and gums normal, oropharynx normal Neck: Supple, no adenopathy; thyroid symmetric, normal size, no bruits Back: Normal exam Lungs: Lungs clear to auscultation. No wheezing, rhonchi, rales Heart: RRR without murmur, gallop, or rubs. No ectopy Abdomen: Normal abdominal exam, Abdomen soft, non-tender. Bowel sounds normal. No masses, organomegaly Extremities: No deformities, edema, skin discoloration, clubbing or cyanosis. Good capillary refill. Musculoskeletal: No joint swelling, deformity, or tenderness Peripheral pulses: Normal Neuro: Gait normal. Reflexes normal and symmetric. Sensation grossly intact., Negative findings: speech normal, mental status intact, muscle tone normal, muscle strength normal ASSESSMENT/PLAN: 1. Mixed hyperlipidemia - ICD9: 272.2, ICD10: E78.2 (primary diagnosis) - continue meds. Call if any issues. - ROSUVASTATIN 5 MG TABLET - HEPATIC FUNCTION PNL - LIPID PANEL BASIC 2. Depression, unspecified depression type - ICD9: 311, ICD10: F32.A - Red flags for re-assessment reviewed with patient in detail. - BUPROPION XL 150 MG TAB 3. Eczema, unspecified type - ICD9: 692.9, ICD10: L30.9 - SELENIUM SULFIDE 2.5 % LOTION 4. Encounter for screening mammogram for malignant neoplasm of breast - ICD9: V76.12, ICD10: Z12.31 - Follow up for annual exam in one year. - DANISH SCREENING 5. Vertigo - ICD9: 780.4, ICD10: R42 Not as bad today. Recommended physical therapy. Red flags for re-assessment reviewed with patient in detail. - CONSULT TO PHYSICAL THERAPY Blanco Araiza MD documented in this encounter [facility] 12-12-2023 Telephone encounter Note Prescription Refill Information The patient has been identified by name and date of : Yes Caregiver verified no other encounters exist for this prescription request: Yes Caregiver confirmed with patient/requestor that no other refills are due, in the near future, with this provider at this time: Yes The last office visit in the department: 11/23/23 Does the patient have a future office visit with this provider/department: Yes 04/04/24 Requested Prescriptions Pending Prescriptions Disp Refills lisinopril (PRINIVIL) 10 mg tablet 90 tablet 3 Sig: Take 1 tablet by mouth once daily. Johnna Clemente LPN December 12, 2023 10:35 AM [facility] 12-12-2023 Miscellaneous Notes Prescription Refill Information The patient has been identified by name and date of : Yes Caregiver verified no other encounters exist for this prescription request: Yes Caregiver confirmed with patient/requestor that no other refills are due, in the near future, with this provider at this time: Yes The last office visit in the department: 11/23/23 Does the patient have a future office visit with this provider/department: Yes 04/04/24 Requested Prescriptions Pending Prescriptions Disp Refills lisinopril (PRINIVIL) 10 mg tablet 90 tablet 3 Sig: Take 1 tablet by mouth once daily. Johnna Clemente LPN December 12, 2023 10:35 AM documented in this encounter [facility] 11-27-2023 Telephone encounter Note Most definitely. If it is persisting, please return for reassessment so we can look at next steps. Myrna Shrestha APRN.ROSAURA [facility] 11-27-2023 Miscellaneous Notes Most definitely. If it is persisting, please return for reassessment so we can look at next steps. Myrna Shrestha APRN.CYBER DEFENSE ANALYST TC to pt, notified of results/provider response. She really doesn't remember taking atorvastatin or the effects. She states she would like to hold off on starting any medication until the vertigo clears up. She states vertigo is about the same as it was when she was into the office. She is going to give it a little more time and if it doesn't resolve then she will call to schedule a a follow up with Myrna. Kang rGace LPN Can please let patient know that I received her labs. Everything looks within normal/stable, except her cholesterol is elevated. To lower her cardiovascular risk, we really should consider treating this. I can see that she didn't do well on atorvastatin previously. Has she been on any other statins and would she be willing to try another? Let me know. The 10-year ASCVD risk score (Moose DECKER, et al., 2019) is: 12.1% Values used to calculate the score: Age: 62 years Sex: Female Is Non- : No Diabetic: No Tobacco smoker: Yes Systolic Blood Pressure: 129 mmHg Is BP treated: Yes HDL Cholesterol: 45 mg/dL Total Cholesterol: 237 mg/dL documented in this encounter [facility] 11-27-2023 Telephone encounter Note TC to pt, notified of results/provider response. She really doesn't remember taking atorvastatin or the effects. She states she would like to hold off on starting any medication until the vertigo clears up. She states vertigo is about the same as it was when she was into the office. She is going to give it a little more time and if it doesn't resolve then she will call to schedule a a follow up with Myrna. Kang Grace LPN [facility] 11-27-2023 Telephone encounter Note Can please let patient know that I received her labs. Everything looks within normal/stable, except her cholesterol is elevated. To lower her cardiovascular risk, we really should consider treating this. I can see that she didn't do well on atorvastatin previously. Has she been on any other statins and would she be willing to try another? Let me know. The 10-year ASCVD risk score (Moose DECKER, et al., 2019) is: 12.1% Values used to calculate the score: Age: 62 years Sex: Female Is Non- : No Diabetic: No Tobacco smoker: Yes Systolic Blood Pressure: 129 mmHg Is BP treated: Yes HDL Cholesterol: 45 mg/dL Total Cholesterol: 237 mg/dL [facility] 11-23-2023 Instructions Myrna Shrestha APRN.CNP - 11/23/2023 8:10 AM EDT Images from the original note were not included. Get labs. Push fluids. Meclizine as needed. If not noticing a continued improvement or any worsening, let us know. Benign Paroxysmal Positional Vertigo (BPPV) What is BPPV? Benign Paroxysmal Positional Vertigo (BPPV) is an inner ear disorder in which changes to the position of the head, such as tipping the head backward, lead to sudden vertigo -- a feeling that the room is spinning. Vertigo can vary in intensity from mild to severe and usually lasts only a few minutes. It may be accompanied by other symptoms, including dizziness lightheadedness a sense of imbalance nausea vomiting Anatomy of the right inner ear. Particle repositioning therapy moves the otoconia out of the semicircular canals and into the utricle where they dissolve naturally. BPPV is not a sign of a serious problem, and it usually disappears on its own within 6 weeks of the first episode. However, the symptoms of BPPV can be very frightening and may be dangerous, especially in older individuals. The unsteadiness associated with BPPV can lead to falls. About half of all people over age 65 experience an episode of BPPV, and falls are a leading cause of fractures in this age-range. What causes BPPV? BPPV develops when calcium carbonate crystals, which are known as otoconia, shift into and become trapped within the semicircular canals (one of the vestibular organs of the inner ear that controls balance). The otoconia make up a normal part of the structure of the utricle, a vestibular organ next to the semicircular canals. (see illustration to the right.) In the utricle, the otoconia may be loosened as a result of injury, infection, or age, and they land in a sac -- the utricle -- where they are naturally dissolved. However, otoconia in the semicircular canals will not dissolve. As a person s head position changes, the otoconia begin to roll around and push on the tiny hairs that line the semicircular canals. Those hairs act as sensors to give the brain information about balance. Vertigo develops when the hairs are stimulated by the rolling otoconia. What head positions trigger BPPV? Movements that can trigger an episode of BPPV include rolling over or sitting up in bed, bending the head forward to look down, or tipping the head backward. In most people, only a single ear is affected by BPPV, although both ears may be involved on occasion. How is BPPV diagnosed and treated? With advances in medical technology, BPPV can easily be diagnosed and treated. The diagnosis can usually be made in the office based on medical history and a physical exam. Treatment also involves a short, simple in-office procedure known as the particle repositioning maneuver. (See addendum below.) How can I identify the affected side? Steps to determine affected side: Sit on bed so that if you lie down, your head hangs slightly over the end of the bed. Turn head to the right and lie back quickly. Wait 1 minute. If you feel dizzy, then the right ear is your affected ear. If no dizziness occurs, sit up. Wait 1 minute. Turn head to the left and lie back quickly. Wait 1 minute. If you feel dizzy, then the left ear is your affected ear. Right position Left position How successful is the treatment? A single particle repositioning procedure is effective in treating about 80% to 90% of cases of BPPV. Additional exercise or repositioning maneuvers may be needed if symptoms persist. Can BPPV recur? If so, what can I do? A new episode of BPPV can develop after successful treatment -- on average there is a 15 percent rate of recurrence each year. However, it may be possible to treat recurrent BPPV at home by performing a series of movements at the time an episode occurs. Patients will receive information on ways to handle recurrences on their own or they can work with a physical therapist to develop a plan. In general, if you wake up with positional vertigo, slowly move into the [id number] position and wait for a minute. Next, slowly move into a face-down position and slide to the foot of the bed. Keep your head down until you reach the end of the bed and are kneeling or standing on the floor. Slowly bring your head backward into an upright position. Hold on to the bed at all times. Another method is to sit toward the foot of the bed, leaving enough room to lay back with your head resting comfortably at the end of the bed, slightly extended. Be careful not to overextend your neck, as this may aggravate existing neck problems. If your symptoms are severe, you may need assistance to complete the maneuver. Follow the same steps as described in the boxed instructions on the next page. Without treatment, the symptoms of BPPV may worsen. However, with time, the otoconia dissolve on their own, which is usually within 6 weeks. Until the time the otoconia dissolve on their own, the number and severity of episodes may be reduced simply by paying careful attention to head position. In addition, anti-motion sickness drugs can be given to control nausea. However, before drugs are taken, it is usually best to try the particle repositioning procedure first. It is a very safe and rapid way to relieve symptoms and reduce the chance for falls. Medications should not be taken for a long period of time. ADDENDUM Particle repositioning procedure: [id number] instructions The particle repositioning procedure takes about 15 minutes to complete and involves a series of physical movements that change the position of the head and body. These actions shift the otoconia out of the semicircular canals and back into their proper location in the utricle. The particle repositioning procedure begins with the patient is sitting up and then lying down on a treatment table. The procedure is very easy to perform. Patients should wear comfortable clothing that will allow them to move freely. Hold each of the following positions for 1 to 2 minutes. Step 1: Turn your head toward your affected ear. Step 2: Lay back quickly. Hold. Step 3: Keep your head back against the bed and turn it toward the good ear. Hold. Step 4: Roll onto your side with your good ear down. Your nose should be turned toward the floor. Hold. Step 5: Sit up, keeping your chin tucked in toward your shoulder. Hold. When you end, you should be sitting over the side of your bed so your feet touch the floor. Step 6: Follow your post-particle repositioning instructions. BPPV: Glossary of Terms Semicircular canals: These structures act like a gyroscope, with canals positioned in three dimensions -- upward, downward, and horizontal. Together, the canals send signals to the brain about the rotation/positioning of the head (for example, when you bend over or spin around.) Cupula: Detects the flow of fluid within the semicircular canals. The flow of fluid gives the body a sense of motion. Utricle: An organ located in the inner ear that helps control balance. The utricle contains hair cells, which are covered with otoconia. The otoconia sway with gravity, sending signals to the brain about the position of the head and body (upright, tilted, etc). Otoconia: The tiny calcium crystal particles that become dislodged from within the utricle (where they can dissolve) and move into the semicircular canals (where they can t dissolve). Cochlea: The 'snail-shell' sense organ of the inner ear that translates sound into nerve impulses and sent to the brain. References Tiffany BT, Brad LB. Francisco POE. Peripheral Vestibular Disorders. In: [facility], 3-Volume Set. [place]; 2014. Julio Brandon. Benign Paroxysmal Positional Vertigo (BPPV): History, Pathophysiology, Office Treatment and Future Directions. International Journal of Otolaryngology. 2011;2011:319250. Funmi JS, Bhavani FOWLER. Clinical practice. Benign paroxysmal positional vertigo. N Engl J Med. 2014 Sep 25;370(12):1138-47. Ayush ENRIQUE, Lanre HERMAN, Erinn Roman, Elvis LEON. The Head and Neck. In: Ayush ENRIQUE, Lanre HERMAN, Erinn Roman, Elvis LEON. eds. [place] s Diagnostic Examination, 10e. [place], [place]: [facility]; 2015. Copyright 5520-9462 The [facility]. All rights reserved This information is provided by the [facility] and is not intended to replace the medical advice of your doctor or health care provider. Please consult your health care provider for advice about a specific medical condition. For additional health information, please contact the Center for Consumer Health Information at the [facility] or toll-free extension [phone]. If you prefer, you may visit [email or web address] or [email or web address]. This document was last reviewed on: 2014 documented in this encounter [facility] 11-23-2023 History of Presen t illness Narrative This is a 62 year old female who presents today with: Patient presents with: Dizziness HISTORY OF PRESENT ILLNESS: Desirae Franklin is a 62 year old female. Patient presents with: Dizziness Pt presents today with complaint of dizzy spells that started last Sunday. Spinning room. No nausea. No vomiting. Refers both directions. Yesterday was the worse -- because she was working and had to look down a lot. Did break out in a sweat yesterday, but not sure if because humid. No chest pain. No palpitations associated w/ the dizziness. No SOB. Eating and drinking okay. No numbness or tingling. No visual changes. No problems with speech or swallow. States that it will sometimes feel like her eyes are darting. No head injuries. Some stress related headaches -- posterior neck/head. PAST MEDICAL HISTORY: PAST MEDICAL HISTORY Diagnosis Date Essential hypertension 11/03/2016 NEGATIVE MEDICAL HISTORY Snoring PAST SURGICAL HISTORY Procedure Laterality Date COLONOSCOPY FLX DX W/COLLJ SPEC WHEN PFRMD 05/21/15 normal - 10 year follow up LAPS SURG CHOLECYSTECTOMY W/CHOLANGIOGRAPHY 05/04/2007 Normal IOC OVARIAN CYSTECTOMY 1994 ? uterine fibroid REDUCTION OF LARGE BREAST 2002 Breast reduction - bilateral ALLERGIES Atorvastatin and Codeine MEDICATIONS Current Outpatient Medications Medication Sig selenium sulfide 2.5 % lotn Apply 1 application to affected area once daily. lisinopril (PRINIVIL) 10 mg tablet Take 1 tablet by mouth once daily. albuterol HFA (PROVENTIL HFA, VENTOLIN HFA) 90 mcg/actuation inhaler INHALE 2 PUFFS INSTRUCTED EVERY 4 HOURS NEEDED FOR WHEEZING/SHORTNESS OF BREATH. No current facility-administered medications for this visit. FAMILY HISTORY Problem Relation Age of Onset Cancer Maternal Grandmother lung Diabetes Father Diabetes Maternal Grandfather Ischemic Heart Disease Father Social History Tobacco Use Smoking status: Every Day Packs/day: 0.50 Years: 25.00 Additional pack years: 0.00 Total pack years: 12.50 Types: Cigarettes Smokeless tobacco: Never Tobacco comments: quit for 2 years, started back up 5 years ago. 05/23/19 Substance Use Topics Alcohol use: Yes Alcohol/week: 3.0 standard drinks of alcohol Types: 3 Glasses of Wine (5oz) per week Drug use: No EXAM: BP 129/77 Pulse (!) 54 Ht 154.9 cm (5' 1) Wt 94.3 kg (208 lb) LMP 08/23/2016 (Approximate) BMI 39.30 kg/m PHYSICAL EXAM: General Appearance: Well appearing, alert, in no acute distress, well-hydrated, well nourished.. Skin: Skin color, texture, turgor normal, no suspicious rashes or lesions. Head: Normocephalic, no masses, lesions, tenderness or abnormalities. Eyes: Anicteric sclera. Pupils are equally round and reactive to light. Extraocular movements are intact. . Ears: External ears normal, canals clear. Normal TMs bilaterally. Oropharynx: Lips, mucosa, and tongue normal, teeth and gums normal, oropharynx normal. Neck: Supple, no adenopathy; thyroid symmetric, normal size, no bruits. Lungs: Lungs clear to auscultation. No wheezing, rhonchi, rales.. Heart: RRR without murmur, gallop, or rubs. No ectopy. Abdomen: Normal abdominal exam, Abdomen soft, non-tender. Bowel sounds normal. No masses, organomegaly. Extremities: No deformities, edema, skin discoloration, clubbing or cyanosis. Good capillary refill. . Neurologic: Gait normal. Reflexes normal and symmetric. Sensation grossly intact., Negative findings: speech normal, mental status intact, cranial nerves 2-12 intact, gait normal, but some trouble w/ heel-toe walking, Romberg negative, muscle tone normal, muscle strength normal, finger to nose normal, reflexes normal and symmetric. Unable to provoke nystagmus w/ mai-hallpike maneuver. ASSESSMENT/PLAN: 1. Dizziness - ICD9: 780.4, ICD10: R42 (primary diagnosis) Suspect bppv. Get labs. Bppv exercises discussed. Antivert prn. Push fluids. - THYROID STIMULATING HORMONE - HEMOGLOBIN A1C - COMPREHENSIVE METABOLIC PANEL - COMPLETE BLOOD COUNT AND DIFFERENTIAL 2. Mixed hyperlipidemia - ICD9: 272.2, ICD10: E78.2 - Control undetermined, due for labs - Counseled on healthy diet and regular exercise - HEMOGLOBIN A1C - LIPID PANEL, NONFASTING 3. Essential hypertension - ICD9: 401.9, ICD10: I10 - Controlled - Continue current medications - Recommend home blood pressure monitoring, to bring results to next visit - Encouraged sodium restriction, DASH or Mediterranean diet - Recommend regular aerobic exercise - HEMOGLOBIN A1C - COMPREHENSIVE METABOLIC PANEL 4. Screening for diabetes mellitus - ICD9: V77.1, ICD10: Z13.1 - HEMOGLOBIN A1C 5. Obesity, Class II, BMI 35-39.9 - ICD9: 278.00, ICD10: E66.9 - HEMOGLOBIN A1C Discussed treatment plan and patient voices understanding. Patient's questions answered appropriately. Medications and potential side effects were discussed and patient voices understanding. Return to the office as scheduled or as needed for worsening/no improvement. Myrna Shrestha APRN.CYBER DEFENSE ANALYST documented in this encounter [facility] 11-23-2023 Nurse Note Patient here today with complaints of positional dizziness. Refers to when she moves her head certain ways or too quickly. Yesterday mentions while at work the room was spinning. On Lisinopril 10 mg daily for HTN. Does not monitor her BP at home. Denies chest pain and shortness of breath. Some headaches. Points to the back of head/neck. Some palpitations. Denies syncopal episodes. Some edema. [facility] 11-23-2023 Nurse Note Patient here today with complaints of positional dizziness. Refers to when she moves her head certain ways or too quickly. Yesterday mentions while at work the room was spinning. On Lisinopril 10 mg daily for HTN. Does not monitor her BP at home. Denies chest pain and shortness of breath. Some headaches. Points to the back of head/neck. Some palpitations. Denies syncopal episodes. Some edema. documented in this encounter [facility] 04-03-2023 Miscellaneous Notes April 03, 2023 PID: [id number] Desirae Cano [address] [place] [address] Dear Ms. Cano, We are pleased to inform you that the results of your recent breast imaging exam on 04/02/2023 are normal. Early detection of cancer is very important. We also understand recommendations regarding breast cancer screening are controversial. Please discuss with your primary care provider which strategy is best for you and whether a mammogram is right for you. Your imaging studies and report will be kept on file at [facility] as part of your permanent medical record and are available for your continuing care. Thank you for allowing us to help in meeting your health care needs. Sincerely, Dr. Marie Interpreting Radiologist [facility] (Normal over 40) documented in this encounter [facility] 04-02-2023 History of Presen t illness Narrative Radiology Service Progress Note PATIENT NAME: Desirae Cano DATE OF SERVICE: April 02, 2023 TIME: 9:22 AM PATIENT IDENTITY VERIFICATION COMPLETED USING TWO (2) IDENTIFIERS: Name and Date of confirmed by patient verbally. FALL SCREENING: Has the patient had 2 falls in the last year or 1 fall with injury or currently using an Ambulatory Assistive Device (Walker, Cane, Wheelchair, Crutches, etc.)? No PATIENT GENDER DATA: Female. status: : No status: NO. PATIENT RELEVANT IMPLANT DATA REVIEWED: Not Applicable RADIOLOGY DEPARTMENT: Mammography PERIPHERAL IV DATA: Not applicable SIGNED BY: Ivy Bullock April 02, 2023 9:22 AM documented in this encounter [facility] 03-23-2023 History of Presen t illness Narrative Patient presents with: Hypertension HPI: Patient presents today for office visit for follow up. Would like refill on selenium sulfide. HTN: Patient is compliant with meds Yes Monitors bp at home: No. Denies side effects: Yes. Chest pain: No. Dyspnea: No. Edema: No. Palpitations: No. Syncope: No. Headache: No. Dizziness: No. Having issues with left foot. Seeing podiatry and looking at possible surgery. Just had injection and given meloxicam. Did not start because wanted to be sure ok to take. Is getting a divorce. Some stress but doing well. MEDICATIONS: Current Outpatient Medications Medication Sig lisinopril (PRINIVIL) 10 mg tablet Take 1 tablet by mouth once daily. selenium sulfide 2.5 % lotn Apply 1 application to affected area once daily. albuterol HFA (PROVENTIL HFA, VENTOLIN HFA) 90 mcg/actuation inhaler INHALE 2 PUFFS INSTRUCTED EVERY 4 HOURS NEEDED FOR WHEEZING/SHORTNESS OF BREATH. No current facility-administered medications for this visit. ALLERGIES: ALLERGIES Allergen Reactions Atorvastatin Myalgia Codeine Shortness of Breath PAST MEDICAL HISTORY Diagnosis Date Essential hypertension 11/03/2016 NEGATIVE MEDICAL HISTORY Snoring PAST SURGICAL HISTORY Procedure Laterality Date COLONOSCOPY FLX DX W/COLLJ SPEC WHEN PFRMD 05/21/15 normal - 10 year follow up LAPS SURG CHOLECYSTECTOMY W/CHOLANGIOGRAPHY 05/04/2007 Normal IOC OVARIAN CYSTECTOMY 1994 ? uterine fibroid REDUCTION OF LARGE BREAST 2001 Breast reduction - bilateral FAMILY HISTORY Problem Relation Age of Onset Cancer Maternal Grandmother lung Diabetes Father Diabetes Maternal Grandfather Ischemic Heart Disease Father Social History Tobacco Use Smoking status: Every Day Packs/day: 0.50 Years: 25.00 Additional pack years: 0.00 Total pack years: 12.50 Types: Cigarettes Smokeless tobacco: Never Tobacco comments: quit for 2 years, started back up 5 years ago. 05/23/19 Substance Use Topics Alcohol use: Yes Alcohol/week: 7.5 standard drinks of alcohol Types: 3 Glasses of Wine (5oz) per week Drug use: No Discussed tobacco cessation, including risks of continued use. Offered assistance to help quit if patient desires. Reviewed current medications, allergies, past medical history, surgical history, family history and social history today. REVIEW OF SYSTEMS All other reviewed and negative other than HPI. HEALTH MAINTENANCE: Reviewed health maintenance issues today and recommended the following in detail. Pneumococcal Vaccine(1 - PCV) Never done BP Controlled (<130/80) Never done DTaP,Tdap,Td Vaccine(1 - Tdap) Never done HPV Testing Never done Shingrix Vaccine(1 of 2) Never done Pap Testing due -sees director of medical education Influenza Vaccine(1) due on 03/09/2023 Mammogram Screening -getting next week VITALS: BP 128/82 Pulse 60 Wt 93.4 kg (206 lb) LMP 08/23/2016 (Approximate) SpO2 99% BMI 38.92 kg/m Last 4 Encounter Wt Readings: Date: Wt: 09/08/2022 94.3 kg (208 lb) 06/21/2022 91.5 kg (201 lb 12.8 oz) 03/10/2022 86.6 kg (191 lb) 09/09/2021 86.6 kg (191 lb) PHYSICAL EXAMINATION: General appearance: Well appearing, alert, in no acute distress, well-hydrated, well nourished. Skin: Skin color, texture, turgor normal, no suspicious rashes or lesions Head: Normocephalic, no masses, lesions, tenderness or abnormalities Lungs: Lungs clear to auscultation. No wheezing, rhonchi, rales Heart: RRR without murmur, gallop, or rubs. No ectopy Abdomen: Normal abdominal exam, Abdomen soft, non-tender. Bowel sounds normal. No masses, organomegaly Extremities: No deformities, edema ASSESSMENT/PLAN: 1. Essential hypertension - ICD9: 401.9, ICD10: I10 (primary diagnosis) - Controlled - Continue current medications - CBC + DIFF - COMP METABOLIC PANEL - LIPID PANEL BASIC 2. Eczema, unspecified type - ICD9: 692.9, ICD10: L30.9 - stable. - SELENIUM SULFIDE 2.5 % LOTION 3. Mixed hyperlipidemia - ICD9: 272.2, ICD10: E78.2 - follow progress. Blanco Araiza RTO in six months or prn. documented in this encounter [facility] 02-08-2023 Evaluation + Plan note Future Scheduled TestsMA Mammo Screening Bilateral w/ Matt 02/08/23 [facility] 09-08-2022 History of Presen t illness Narrative Patient presents with: 6 Month Exam HPI: Patient presents today for office visit for follow up. HTN: Does not monitor BP No chest pain No shortness of breath. Is smoking currently with going through a divorce. Feels she is doing well. No headaches No dizziness Some edema to B/L feet/ankles after standing long periods. Not anything new. No syncope No palpitations Due for labs. MEDICATIONS: Current Outpatient Medications Medication Sig lisinopril (PRINIVIL) 10 mg tablet Take 1 tablet by mouth once daily. selenium sulfide 2.5 % lotn Apply 1 application to affected area once daily. albuterol HFA (PROVENTIL HFA, VENTOLIN HFA) 90 mcg/actuation inhaler INHALE 2 PUFFS INSTRUCTED EVERY 4 HOURS NEEDED FOR WHEEZING/SHORTNESS OF BREATH. No current facility-administered medications for this visit. ALLERGIES: ALLERGIES Allergen Reactions Atorvastatin Myalgia Codeine Shortness of Breath PAST MEDICAL HISTORY Diagnosis Date Essential hypertension 11/03/2016 NEGATIVE MEDICAL HISTORY Snoring PAST SURGICAL HISTORY Procedure Laterality Date COLONOSCOPY FLX DX W/COLLJ SPEC WHEN PFRMD 05/21/15 normal - 10 year follow up LAPS SURG CHOLECYSTECTOMY W/CHOLANGIOGRAPHY 05/04/2007 Normal IOC OVARIAN CYSTECTOMY 1994 ? uterine fibroid REDUCTION OF LARGE BREAST 2001 Breast reduction - bilateral FAMILY HISTORY Problem Relation Age of Onset Cancer Maternal Grandmother lung Diabetes Father Diabetes Maternal Grandfather Ischemic Heart Disease Father Social History Tobacco Use Smoking status: Every Day Packs/day: 0.50 Years: 25.00 Pack years: 12.50 Types: Cigarettes Smokeless tobacco: Never Tobacco comments: quit for 2 years, started back up 5 years ago. 05/23/19 Substance Use Topics Alcohol use: Yes Alcohol/week: 7.5 standard drinks Types: 3 Glasses of Wine (5oz) per week Drug use: No Reviewed current medications, allergies, past medical history, surgical history, family history and social history today. REVIEW OF SYSTEMS GI: no gi issues. : No history of dysuria, frequency or incontinence All other reviewed and negative other than HPI. HEALTH MAINTENANCE: Reviewed health maintenance issues today and recommended the following in detail. PNEUMOCOCCAL(1 - PCV) Never done DTAP,TDAP,TD(1 - Tdap) Never done HPV TESTING-per director of medical education. SHINGRIX VACCINE(1 of 2) Never done COVID-19 VACCINE(3 - Booster for Moderna series) due on 03/30/2021 PAP TESTING d-sees Dr Amaro in [place]. INFLUENZA(1) due on 03/09/2022 DEPRESSION ASSESSMENT -done VITALS: BP 118/82 Pulse 71 Ht 154.9 cm (5' 1) Wt 94.3 kg (208 lb) LMP 08/23/2016 (Approximate) SpO2 98% BMI 39.30 kg/m Last 4 Encounter Wt Readings: Date: Wt: 06/21/2022 91.5 kg (201 lb 12.8 oz) 03/10/2022 86.6 kg (191 lb) 09/09/2021 86.6 kg (191 lb) 03/29/2021 88.5 kg (195 lb 3.2 oz) PHYSICAL EXAMINATION: General appearance: Well appearing, alert, in no acute distress, well-hydrated, well nourished. Skin: Skin color, texture, turgor normal, no suspicious rashes or lesions Head: Normocephalic, no masses, lesions, tenderness or abnormalities Neck: Supple, no adenopathy; thyroid symmetric, normal size, no bruits Lungs: Lungs clear to auscultation. No wheezing, rhonchi, rales Heart: RRR without murmur, gallop, or rubs. No ectopy Abdomen: Normal abdominal exam, Abdomen soft, non-tender. Bowel sounds normal. No masses, organomegaly Extremities: No deformities, edema, skin discoloration, clubbing or cyanosis. Good capillary refill. Musculoskeletal: No joint swelling, deformity, or tenderness ASSESSMENT/PLAN: 1. Essential hypertension - ICD9: 401.9, ICD10: I10 (primary diagnosis) - good control - Continue current medication(s) - Goal of BP <130/80 - CBC + DIFF - COMP METABOLIC PANEL 2. Mixed hyperlipidemia - ICD9: 272.2, ICD10: E78.2 - to be determined upon return of lab results - Continue current medication. Blanco Araiaz MD documented in this encounter [facility] 08-26-2022 Miscellaneous Notes Detailed VM left on pt's identified voicemail of information below. Johnna Clemente LPN Pt called and she is out of medication below. Please review. Request being sent to learning operations specialist. Patient has been identified by name and date of : Yes, Provider Dr. Araiza Date 08/26/22 Time 9:21 am Patient phones for refill(s): Requested Prescriptions Pending Prescriptions Disp Refills lisinopril (PRINIVIL) 10 mg tablet 90 tablet 3 Sig: Take 1 tablet by mouth once daily. Date of last office visit in primary care: 03/10/22 next apt 09/08/22 Last 2 Encounter Wt Readings: Date: Wt: 06/21/2022 91.5 kg (201 lb 12.8 oz) 03/10/2022 86.6 kg (191 lb) Previous labs/tests for medication: Blood Pressure: BUN (mg/dL) Date Value 09/07/2021 13 11/23/2020 12 Sodium (mmol/L) Date Value 09/07/2021 141 11/23/2020 140 Last 1 Encounter BP Readings: Date: BP: 06/21/2022 130/86 . Thank you. Johnna Clemente LPN documented in this encounter [facility] 06-21-2022 History of Presen t illness Narrative Subjective Ear Pain Associated symptoms include coughing. Pertinent negatives include no congestion, fever, headaches or sore throat. Desirae Cano is a 61 year old female who presents with bilateral ear pain and pressure present for the past week. She had a viral URI (tested negative for COVID) which lasted about a week. She still has some cough but has had ear problems. States the pain is thumping and wakes her up at night. She has taken tylenol at home for pain. Review of Systems Constitutional: Negative for fever. HENT: Positive for ear pain and tinnitus. Negative for congestion and sore throat. Respiratory: Positive for cough. Cardiovascular: Negative. Neurological: Negative for dizziness and headaches. BP 130/86 Pulse 72 Temp 36.6 C (97.8 F) Resp 20 Wt 91.5 kg (201 lb 12.8 oz) LMP 08/23/2016 (Approximate) SpO2 98% BMI 38.13 kg/m PAST MEDICAL HISTORY Diagnosis Date Essential hypertension 11/03/2016 NEGATIVE MEDICAL HISTORY Snoring PAST SURGICAL HISTORY Procedure Laterality Date COLONOSCOPY FLX DX W/COLLJ SPEC WHEN PFRMD 05/21/15 normal - 10 year follow up LAPS SURG CHOLECYSTECTOMY W/CHOLANGIOGRAPHY 05/04/2007 Normal IOC OVARIAN CYSTECTOMY 1994 ? uterine fibroid REDUCTION OF LARGE BREAST 2002 Breast reduction - bilateral ALLERGIES Atorvastatin and Codeine MEDICATIONS albuterol HFA (PROVENTIL HFA, VENTOLIN HFA) 90 mcg/actuation inhaler INHALE 2 PUFFS INSTRUCTED EVERY 4 HOURS NEEDED FOR WHEEZING/SHORTNESS OF BREATH. lisinopril (PRINIVIL) 10 mg tablet Take 1 tablet by mouth once daily. amoxicillin (AMOXIL) 875 mg tablet Take 1 tablet by mouth twice daily for 7 days. nicotine (NICODERM) 21 mg/24 hr Apply 1 Patch as directed every 24 hours. buPROPion XL (WELLBUTRIN XL) 150 mg 24 hr tablet Take 1 tablet by mouth once daily. (Patient not taking: Reported on 05/29/2022) selenium sulfide 2.5 % lotn Apply 1 application to affected area once daily. FAMILY HISTORY Problem Relation Age of Onset Cancer Maternal Grandmother lung Diabetes Father Diabetes Maternal Grandfather Ischemic Heart Disease Father Social History Tobacco Use Smoking status: Every Day Packs/day: 0.50 Years: 25.00 Pack years: 12.50 Types: Cigarettes Smokeless tobacco: Never Tobacco comments: quit for 2 years, started back up 5 years ago. 05/23/19 Substance Use Topics Alcohol use: Yes Alcohol/week: 7.5 standard drinks Types: 3 Glasses of Wine (5oz) per week Drug use: No Objective Physical Exam Vitals and nursing note reviewed. Constitutional: Appearance: Normal appearance. HENT: Right Ear: Ear canal and external ear normal. A middle ear effusion is present. Tympanic membrane is injected. Left Ear: Ear canal and external ear normal. A middle ear effusion is present. Tympanic membrane is injected. Mouth/Throat: Pharynx: Uvula midline. Cardiovascular: Rate and Rhythm: Normal rate and regular rhythm. Heart sounds: Normal heart sounds. Pulmonary: Effort: Pulmonary effort is normal. No respiratory distress. Breath sounds: Normal breath sounds. No wheezing or rales. Musculoskeletal: Cervical back: Neck supple. Lymphadenopathy: Cervical: No cervical adenopathy. Skin: General: Skin is warm and dry. Findings: No erythema or rash. Neurological: Mental Status: She is alert. ASSESSMENT/PLAN: 1. Otitis media with effusion, bilateral - ICD9: 381.4, ICD10: H65.93 - Will begin treatment with as per antibiotic as written, see orders - The patient should also be given flonase nasal spray for the first 5-7 days of treatment. - Supportive care with plenty of fluids, rest, and analgesia prn. - AMOXICILLIN 875 MG TABLET - Follow-up with ENT in 3-5 days if symptoms have not improved or sooner if symptoms worsen - Discussed red flags and need for immediate medical evaluation if any occur. - Discussed supportive care treatment with fluids, rest and analgesia. - Discussed expected course of illness Parul Blackburn APRN.CNP documented in this encounter [facility] 06-21-2022 Instructions Parul Blackburn APRN.CNP - 06/21/2022 12:30 PM EST ASSESSMENT/PLAN: 1. Otitis media with effusion, bilateral - ICD9: 381.4, ICD10: H65.93 - Will begin treatment with as per antibiotic as written, see orders - The patient should also be given flonase nasal spray for the first 5-7 days of treatment. - Supportive care with plenty of fluids, rest, and analgesia prn. - AMOXICILLIN 875 MG TABLET - Follow-up with ENT in 3-5 days if symptoms have not improved or sooner if symptoms worsen - Discussed red flags and need for immediate medical evaluation if any occur. - Discussed supportive care treatment with fluids, rest and analgesia. - Discussed expected course of illness Parul Blackburn APRN.CNP documented in this encounter [facility] 05-29-2022 History of Presen t illness Narrative Manual Readin/73 Pulse: 70 Reason for blood pressure check - Last BP elevated Patient is: Taking medication as prescribed Yes Took medication today Yes If no, date medication last taken N/A Experiencing side effects No BP continued to be elevated at nurse visit 04/19/22. No BP medication changes were made at that time. Taking all medications as prescribed. Denies any chest pain, shortness of breath, dizziness, or headaches. Minimal caffeine use. Past personal history of tobacco use; no current exposure. Alert and oriented. Pt has been identified by name and birthdate: Yes Allergies reviewed: Yes Latex allergy: no. Medication - prescribed and OTC reviewed and updated: Yes Do you need any prescription refills prior to your next visit: No Health Maintenance: Reviewed and not up to date and provider notified. Patient advised to continue with current medications and would be contacted if any further instructions after review by PCP. Nuzhat Valdez LPN documented in this encounter [facility] 05-11-2022 Miscellaneous Notes Patient has been identified by name and date of : Yes Pharmacy phones for refill(s): Requested Prescriptions Pending Prescriptions Disp Refills nicotine (NICODERM) 21 mg/24 hr 30 Patch 0 Sig: Apply 1 Patch as directed every 24 hours. Date of last office visit with pcp: 03/10/22 Date of last office visit in primary care: Last 2 Encounter Wt Readings: Date: Wt: 03/10/2022 86.6 kg (191 lb) 09/09/2021 86.6 kg (191 lb) Previous labs/tests for medication: Not applicable Please advise. Thank you. Alexa Sapp RN documented in this encounter [facility] 05-08-2022 Miscellaneous Notes Patient calling and states it is more cost effective if her medications are ordered as a 90 day supply. Patient asking if her Wellbutrin can be sent to [facility] as a 90 day supply. Script pended for completion and review, if provider agreeable. Thank you. documented in this encounter [facility] 04-26-2022 Miscellaneous Notes Patient notified and verbalizes understanding. Watch diet and recheck lipids off meds in three months. Pt was instructed to stop taking lipitor after it caused joint pain & to call back 2 wks after stopping it. Pt reports she is feeling much better, states she feels like she did before she started lipitor. Pt asking what she should take in place of it? Please advise. Morenita Ahmadi LPN documented in this encounter [facility] 04-19-2022 History of Presen t illness Narrative Manual Readin/86 Pulse: 59 BP Jonathan average: 143/87 P: 61 Repeat BP Check: 132/87 P60 #1 146/91 P65 #2 150/89 P61 #3 144/85 P59 #4 138/85 P60 #5 147/86 P61 #6 Reason for blood pressure check - Medication adjustment Patient is: Taking medication as prescribed Yes Took medication today No If no, date medication last taken 04/18/22 Experiencing side effects No BP was normal at last appt 03/10/22, however she was started another medication that may affect her BP. Tolerating medication well. States that she has not had her medications yet this morning. Denies any chest pain, shortness of breath, dizziness, or headaches. Minimal caffeine use. Past personal history of tobacco use; no current exposure. Alert and oriented. Pt has been identified by name and birthdate: Yes Allergies reviewed: Yes Latex allergy: no. Medication - prescribed and OTC reviewed and updated: Yes Do you need any prescription refills prior to your next visit: No Health Maintenance: Reviewed and not up to date and provider notified Patient advised that she would be contacted after review by PCP. Nuzhat Valdez LPN documented in this encounter [facility] 04-12-2022 Miscellaneous Notes Patient notified. Verbalized understanding. Great with the smoking! Keep up the good work. I would check with her eye doc regarding brand of eye vitamin. Hold on the lipitor and call or my chart me in two weeks with update off of med Patient calls to update provider that since starting atorvastatin 10 mg at bedtime she has developed muscle and joint pain especially in back and feet. Asking if provider wants to order something else? Patient also asking which preservision eye vitamin would be recommended for her? She reports that she is currently taking Areds with Lutein but there is also Areds 2 available (doesn't include beta carotene). She thought with her history or smoking one was recommended over the other and asking provider opinion. Patient reports she hasn't had a cigarette in 3 weeks. Please review and advise, Fransisca Wang RN documented in this encounter [facility] 03-31-2022 History of Presen t illness Narrative Radiology Service Progress Note PATIENT NAME: Desirae Cano DATE OF SERVICE: March 31, 2022 TIME: 10:07 AM PATIENT IDENTITY VERIFICATION COMPLETED USING TWO (2) IDENTIFIERS: Name and Date of confirmed by patient verbally. FALL SCREENING: Has the patient had 2 falls in the last year or 1 fall with injury or currently using an Ambulatory Assistive Device (Walker, Cane, Wheelchair, Crutches, etc.)? No PATIENT GENDER DATA: Female. status: : No status: NO. PATIENT RELEVANT IMPLANT DATA REVIEWED: Not Applicable RADIOLOGY DEPARTMENT: Mammography PERIPHERAL IV DATA: Not applicable SIGNED BY: RT Shar(R) March 31, 2022 10:07 AM documented in this encounter [facility] 03-10-2022 Miscellaneous Notes Addended by: BLANCO ARAIZA on: 03/10/2022 04:01 PM Modules accepted: Orders documented in this encounter [facility] 03-10-2022 History of Presen t illness Narrative Patient presents with: 6 Month Exam HPI: Patient presents today for office visit for follow up. HTN: Patient is compliant with meds Yes Denies side effects: Yes. Chest pain: has rare discomfort with her anxiety. Just a twinge. No chest pressure with exertion. Dyspnea: no new issues. Edema: No. Palpitations: No. Syncope: No. Headache: No. Dizziness: No. The 10-year ASCVD risk score (Moose DECKER, et al., 2019) is: 9.8% Values used to calculate the score: Age: 61 years Sex: Female Is Non- : No Diabetic: No Tobacco smoker: Yes Systolic Blood Pressure: 118 mmHg Is BP treated: Yes HDL Cholesterol: 46 mg/dL Total Cholesterol: 245 mg/dL She wants to stop smoking. Has had panic attacks in the past. Wants to consider something to keep her calm. Wants to try wellbutrin to help with her anxiety as well. Discussed tobacco cessation, including risks of continued use. Offered assistance to help quit if patient desires. Component Latest Ref Rng & Units 03/08/2022 Cholesterol, Total <200 mg/dL 245 (H) Triglyceride <150 mg/dL 114 HDL Cholesterol >39 mg/dL 46 Non HDL Cholesterol <130 mg/dL 199 (H) Fasting Time hrs 12 VLDL Cholesterol <30 mg/dL 23 TC:HDL Ratio <5.10 5.33 (H) LDL Cholesterol <100 mg/dL 176 (H) LDL:HDL Ratio <2.54 3.83 (H) MEDICATIONS: Current Outpatient Medications Medication Sig albuterol HFA (PROVENTIL HFA, VENTOLIN HFA) 90 mcg/actuation inhaler INHALE 2 PUFFS INSTRUCTED EVERY 4 HOURS NEEDED FOR WHEEZING/SHORTNESS OF BREATH. lisinopril (PRINIVIL) 10 mg tablet Take 1 tablet by mouth once daily. No current facility-administered medications for this visit. ALLERGIES: ALLERGIES Allergen Reactions Codeine Shortness of Breath PAST MEDICAL HISTORY Diagnosis Date Essential hypertension 11/03/2016 NEGATIVE MEDICAL HISTORY Snoring PAST SURGICAL HISTORY Procedure Laterality Date COLONOSCOPY FLX DX W/COLLJ SPEC WHEN PFRMD 05/21/15 normal - 10 year follow up LAPS SURG CHOLECYSTECTOMY W/CHOLANGIOGRAPHY 05/04/2007 Normal IOC OVARIAN CYSTECTOMY 1994 ? uterine fibroid REDUCTION OF LARGE BREAST 2002 Breast reduction - bilateral FAMILY HISTORY Problem Relation Age of Onset Cancer Maternal Grandmother lung Diabetes Father Diabetes Maternal Grandfather Ischemic Heart Disease Father Social History Tobacco Use Smoking status: Every Day Packs/day: 0.50 Years: 25.00 Pack years: 12.50 Types: Cigarettes Smokeless tobacco: Never Tobacco comments: quit for 2 years, started back up 5 years ago. 05/23/19 Substance Use Topics Alcohol use: Yes Alcohol/week: 7.5 standard drinks Types: 3 Glasses of Wine (5oz) per week Drug use: No Reviewed current medications, allergies, past medical history, surgical history, family history and social history today. REVIEW OF SYSTEMS All other reviewed and negative other than HPI. HEALTH MAINTENANCE: Reviewed health maintenance issues today and recommended the following in detail. PNEUMOCOCCAL(1 - PCV) Never done SHINGRIX VACCINE(1 of 2) Never done COVID-19 VACCINE(3 - Booster for Moderna series) due on 07/05/2021 PAP TESTING -recommended keeping up to date. DEPRESSION SCREENING due on 11/22/2021 INFLUENZA(1) due on 03/09/2022 MAMMOGRAM due on 03/17/2022 VITALS: BP 118/72 Pulse 76 Wt 86.6 kg (191 lb) LMP 08/23/2016 (Approximate) BMI 36.09 kg/m Last 4 Encounter Wt Readings: Date: Wt: 03/10/2022 86.6 kg (191 lb) 09/09/2021 86.6 kg (191 lb) 03/29/2021 88.5 kg (195 lb 3.2 oz) 03/11/2021 88.9 kg (196 lb) PHYSICAL EXAMINATION: General appearance: Well appearing, alert, in no acute distress, well-hydrated, well nourished. Skin: Skin color, texture, turgor normal, no suspicious rashes or lesions Head: Normocephalic, no masses, lesions, tenderness or abnormalities Neck: Supple, no adenopathy; thyroid symmetric, normal size, no bruits Lungs: Lungs clear to auscultation. No wheezing, rhonchi, rales Heart: RRR without murmur, gallop, or rubs. No ectopy Abdomen: Normal abdominal exam, Abdomen soft, non-tender. Bowel sounds normal. No masses, organomegaly Extremities: No deformities, edema, skin discoloration, clubbing or cyanosis. Good capillary refill. Musculoskeletal: No joint swelling, deformity, or tenderness ASSESSMENT/PLAN: 1. Essential hypertension - ICD9: 401.9, ICD10: I10 (primary diagnosis) - good control - Continue current medication(s) - Goal of BP <130/80 2. Eczema, unspecified type - ICD9: 692.9, ICD10: L30.9 - SELENIUM SULFIDE 2.5 % LOTION 3. Screening breast examination - ICD9: V76.10, ICD10: Z12.39 - DANISH SCREENING 4. Mixed hyperlipidemia - ICD9: 272.2, ICD10: E78.2 - poor control - Begin treatment with atorvastatin (Lipitor) 10 mg - labs in six weeks - ATORVASTATIN 10 MG TABLET - HEPATIC FUNCTION PNL - LIPID PANEL BASIC 5. Tobacco abuse - ICD9: 305.1, ICD10: Z72.0 - Cessation encouraged. - Physiologic and physical aspects of tobacco addiction as well as strategies for quitting were discussed. - Counseling was given focusing on the harmful effects of this addiction especially given the patient's medical condition(s) which will be worsened because of the chemicals in tobacco. - NICOTINE 21 MG/24 HR DAILY TRANSDERMAL PATCH 6. Anxiety - ICD9: 300.00, ICD10: F41.9 - Discussed risks and benefits of new medication with the patient. Advised them to call if any side effects or questions. - bp check in six weeks. Call if no improvement. - BUPROPION XL 150 MG TAB Blanco Araiza RTO in six months and prn. documented in this encounter [facility] 09-19-2016 History of Past i llness Narrative Problem Noted Date Resolved Date Sprain of medial collateral ligament of right kn ee 09/19/2016 02/22/2018 Sprain of medial collateral ligament of left kne e 09/19/2016 02/22/2018 Calculus of gallbladder with out mention of cholecystitis or obstruction 05/31/2007 11/03/2016 documented as of this encounter (statuses as of 03/10/2022) [facility] History of Past illness Narrative* Problem Noted Date Resolved Date Sprain of medial collateral ligament of right kn ee 09/19/2016 02/22/2018 Sprain of medial collateral ligament of left kne e 09/19/2016 02/22/2018 Calculus of gallbladder with out mention of cholecystitis or obstruction 05/31/2007 11/03/2016 documented as of this encounter (statuses as of 04/01/2022) [facility] History of Past illness Narrative* Problem Noted Date Resolved Date Sprain of medial collateral ligament of right kn ee 09/19/2016 02/22/2018 Sprain of medial collateral ligament of left kne e 09/19/2016 02/22/2018 Calculus of gallbladder with out mention of cholecystitis or obstruction 05/31/2007 11/03/2016 documented as of this encounter (statuses as of 04/12/2022) [facility] History of Past illness Narrative* Problem Noted Date Resolved Date Sprain of medial collateral ligament of right kn ee 09/19/2016 02/22/2018 Sprain of medial collateral ligament of left kne e 09/19/2016 02/22/2018 Calculus of gallbladder with out mention of cholecystitis or obstruction 05/31/2007 11/03/2016 documented as of this encounter (statuses as of 04/19/2022) [facility] History of Past illness Narrative* Problem Noted Date Resolved Date Sprain of medial collateral ligament of right kn ee 09/19/2016 02/22/2018 Sprain of medial collateral ligament of left kne e 09/19/2016 02/22/2018 Calculus of gallbladder with out mention of cholecystitis or obstruction 05/31/2007 11/03/2016 documented as of this encounter (statuses as of 04/26/2022) [facility] History of Past illness Narrative* Problem Noted Date Resolved Date Sprain of medial collateral ligament of right kn ee 09/19/2016 02/22/2018 Sprain of medial collateral ligament of left kne e 09/19/2016 02/22/2018 Calculus of gallbladder with out mention of cholecystitis or obstruction 05/31/2007 11/03/2016 documented as of this encounter (statuses as of 05/08/2022) [facility] History of Past illness Narrative* Problem Noted Date Resolved Date Sprain of medial collateral ligament of right kn ee 09/19/2016 02/22/2018 Sprain of medial collateral ligament of left kne e 09/19/2016 02/22/2018 Calculus of gallbladder with out mention of cholecystitis or obstruction 05/31/2007 11/03/2016 documented as of this encounter (statuses as of 05/11/2022) [facility] History of Past illness Narrative* Problem Noted Date Resolved Date Sprain of medial collateral ligament of right kn ee 09/19/2016 02/22/2018 Sprain of medial collateral ligament of left kne e 09/19/2016 02/22/2018 Calculus of gallbladder with out mention of cholecystitis or obstruction 05/31/2007 11/03/2016 documented as of this encounter (statuses as of 05/29/2022) [facility] of Past illness Narrative* Problem Noted Date Resolved Date Sprain of medial collateral ligament of right kn ee 09/19/2016 02/22/2018 Sprain of medial collateral ligament of left kne e 09/19/2016 02/22/2018 Calculus of gallbladder with out mention of cholecystitis or obstruction 05/31/2007 11/03/2016 documented as of this encounter (statuses as of 06/21/2022) [facility] of Past illness Narrative* Problem Noted Date Resolved Date Sprain of medial collateral ligament of right kn ee 09/19/2016 02/22/2018 Sprain of medial collateral ligament of left kne e 09/19/2016 02/22/2018 Calculus of gallbladder with out mention of cholecystitis or obstruction 05/31/2007 11/03/2016 documented as of this encounter (statuses as of 08/26/2022) [facility] History of Past illness Narrative* Problem Noted Date Resolved Date Sprain of medial collateral ligament of right kn ee 09/19/2016 02/22/2018 Sprain of medial collateral ligament of left kne e 09/19/2016 02/22/2018 Calculus of gallbladder with out mention of cholecystitis or obstruction 05/31/2007 11/03/2016 documented as of this encounter (statuses as of 09/08/2022) [facility] of Past illness Narrative* Problem Noted Date Diagnosed Date Resolved Date Sprain of medial collateral ligament of right knee 09/19/2016 02/22/2018 Sprain of medial collateral ligament of left knee 09/19/2016 02/22/2018 Calculus of gallbladder with out mention of cholecystitis or obstruction 05/31/2007 11/03/2016 documented as of this encounter (statuses as of 03/23/2023) [facility] of Past illness Narrative* Problem Noted Date Diagnosed Date Resolved Date Sprain of medial collateral ligament of right knee 09/19/2016 02/22/2018 Sprain of medial collateral ligament of left knee 09/19/2016 02/22/2018 Calculus of gallbladder with out mention of cholecystitis or obstruction 05/31/2007 11/03/2016 documented as of this encounter (statuses as of 04/05/2023) [facility] of Past illness Narrative* Problem Noted Date Diagnosed Date Resolved Date Sprain of medial collateral ligament of right knee 09/19/2016 02/22/2018 Sprain of medial collateral ligament of left knee 09/19/2016 02/22/2018 Calculus of gallbladder with out mention of cholecystitis or obstruction 05/31/2007 11/03/2016 documented as of this encounter (statuses as of 05/13/2023) [facility] Diagnosis Essential hypertension- Primary Unspecified essential hypertension Eczema, unspecified type Screening breast examination Breast screening, unspecified Mixed hyperlipidemia Tobacco abuse Tobacco use disorder Anxiety Anxiety state, unspecified [facility] Screening breast examination Breast screening, unspecified [facility] Diagnosis Essential hypertension- Primary Unspecified essential hypertension [facility] Diagnosis Mixed hyperlipidemia- Primary [facility] Diagnosis Anxiety Anxiety state, unspecified [facility] Diagnosis Tobacco abuse Tobacco use disorder [facility] Diagnosis Essential hypertension- Primary Unspecified essential hypertension [facility] Diagnosis Otitis media with effusion, bilateral- Primary [facility] Diagnosis Essential hypertension Unspecified essential hypertension [facility] Diagnosis Essential hypertension- Primary Unspecified essential hypertension Mixed hyperlipidemia [facility] Essential hypertension- Primary Unspecified essential hypertension Eczema, unspecified type Mixed hyperlipidemia [facility] Diagnosis Dizziness- Primary Dizziness and giddiness Mixed hyperlipidemia Essential hypertension Unspecified essential hypertension Screening for diabetes mellitus Obesity, Class II, BMI 35-39.9 Obesity, unspecified [facility] Diagnosis Essential hypertension Unspecified essential hypertension documented in this encounter [facility] [place] [facility]* Diagnosis Mixed hyperlipidemia- Primary Depression, unspecified depression type Eczema, unspecified type Encounter for screening mammogram for malignant neoplasm of breast Other screening mammogram Vertigo Dizziness and giddiness documented in this encounter [facility] note* Diagnosis Vertigo Dizziness and giddiness documented in this encounter [facility] note* Diagnosis Encounter for screening mammogram for malignant neoplasm of breast Other screening mammogram [facility]* Diagnosis Essential hypertension Unspecified essential hypertension documented in this encounter [facility] note* Diagnosis Shoulder impingement- Primary Other affections of shoulder region, not elsewhere classified Nontraumatic tear of right rotator cuff, unspecified tear extent Chronic right shoulder pain Pain in joint, shoulder region documented in this encounter [facility] note* Diagnosis Routine physical examination- Primary Routine general medical examination at a health care facility Screening for colon cancer Special screening for malignant neoplasms, colon Visit for screening mammogram Other screening mammogram Mixed hyperlipidemia Essential (primary) hypertension Unspecified essential hypertension Tear of right rotator cuff, unspecified tear extent, unspecified whether traumatic documented in this encounter [facility] note* Diagnosis Shoulder impingement- Primary Other affections of shoulder region, not elsewhere classified Nontraumatic tear of right rotator cuff, unspecified tear extent Chronic right shoulder pain Pain in joint, shoulder region documented in this encounter [facility] Narrative No data available for this section [facility] Hospital Discharge instructions No data available for this section [facility] Progress note No data available for this section [facility] Reason for referral (narrative)* Diagnostic Procedure Only (Routine) - Authorized Specialty Diagnoses / Procedures Referred By Contac t Referred To Contact [facility] Diagnoses Screening breast examination Procedures DANISH SCREENING W MATT SCREENING DIGITAL BREAST TOMOSYNTHESIS BI SCREENING MAMMOGRAPHY BI 2-VIEW BREAST INC Blanco Mata MD [address] [place] [address] [facility] [address] [place] [address] Referral ID Status Reason Start Date Expiration Date Visits Requested Visits Authorized [id number] Authorized Auto-Generat ed Referral 03/10/2022 04/09/2023 1 1 [facility] for referral (narrative)* Diagnostic Procedure Only (Routine) - Closed Specialty Diagnoses / Procedures Referred By Terence watt Referred To Contact [facility] Diagnoses Screening breast examination Procedures DANISH SCREENING W MATT SCREENING DIGITAL BREAST TOMOSYNTHESIS BI SCREENING MAMMOGRAPHY BI 2-VIEW BREAST INC Blanco Mata MD [address] [place] [address] [facility] [address] [place] [address] Referral ID Status Reason Start Date Expiration Date V isits Requested Visits Authorized [id number] Closed Auto-Generate d Referral 03/10/2022 04/09/2023 1 1 [facility] for referral (narrative)* Diagnostic Procedure Only (Routine) - New Request Specialty Diagnoses / Procedures Referred By Terence watt Referred To Contact [facility] Diagnoses Encounter for screening mammogram for malignant neoplasm of breast Procedures DANISH SCREENING W MATT SCREENING DIGITAL BREAST TOMOSYNTHESIS BI SCREENING MAMMOGRAPHY BI 2-VIEW BREAST INC Blanco Mata MD [address] [place] [address] [facility] [address] [place] [address] Referral ID Status Reason Start Date Expiration Date Visits Requested Visits Authorized [id number] New Request Auto-Generat ed Referral 01/23/2024 02/21/2025 1 1 * Physical Therapy (Routine) - Pending Review Specialty Diagnoses / Procedures Referred By Terence watt Referred To Contact [facility] Diagnoses Vertigo Procedures CONSULT TO PHYSICAL THERAPY PHYSICAL THERAPY EVALUATION HIGH COMPLEX 45 MINS Blanco Araiza MD [facility] [place] [address] [facility] [place] [address] [place] [address] Referral ID Status Reason Start Date Expiration Date Visits Requested Visits Authorized [id number] Pending Review Auto-Generat ed Referral 01/23/2024 01/22/2025 1 1 [facility] for visit Narrative* Diagnostic Procedure Only (Routine) - Closed Specialty Diagnoses / Procedures Referred By Terence watt Referred To Contact [facility] Diagnoses Screening breast examination Procedures DANISH SCREENING W MATT SCREENING DIGITAL BREAST TOMOSYNTHESIS BI SCREENING MAMMOGRAPHY BI 2-VIEW BREAST INC CAD Blanco Araiza MD [address] [place] [address] [facility] [address] [place] [address] Referral ID Status Reason Start Date Expiration Date V isits Requested Visits Authorized [id number] Closed Auto-Generate d Referral 03/10/2022 04/09/2023 1 1 [facility] for visit Narrative* Diagnostic Procedure Only (Routine) - Closed Specialty Diagnoses / Procedures Referred By Terence watt Referred To Contact [facility] Diagnoses Encounter for screening mammogram for malignant neoplasm of breast Procedures DANISH SCREENING W MATT SCREENING DIGITAL BREAST TOMOSYNTHESIS BI SCREENING MAMMOGRAPHY BI 2-VIEW BREAST INC Blanco Mata MD [address] [place] [address] [facility] [address] [place] [address] Referral ID Status Reason Start Date Expiration Date V isits Requested Visits Authorized [id number] Closed Auto-Generate d Referral 01/23/2024 02/21/2025 1 1 [facility] Summary Purpose Family History No Family History Records Found No data available for this section No Family History Records FoundNo Family History Records FoundNo Family History Records Found Advance Directives No Advanced Directives Records FoundNo Advanced Directives Records FoundNo Advanced Directives Records FoundNo Advanced Directives Records Found Reason for Referral Specialty Diagnoses / Procedures Referred By Terence watt Referred To Contact Ent - Otolaryngology Diagnoses Otitis media with effusion, bilateral Procedures CONSULT TO ENT OFFICE/OUTPATIENT NEW HIGH MDM 60-74 MINUTES Parul Blackburn APRN.CYBER DEFENSE ANALYST [address] [place] [address] Referral ID Status Reason Start Date Expiration Date Visits Requested Visits Authorized [id number] Authorized PCP Requested Referral 2 06/21/2023 1 1 Additional Source Comments INFORMATION SOURCE (unrecogn ized section and content) DATE CREATED AUTHOR 11/29/2018 [facility] DATE CREATED AUTHOR AUTHOR'S ORGANIZ ATION 02/13/2023 [facility] [place] DATE CREATED AUTHOR AUTHOR'S ORGANIZ ATION 05/07/2024 [facility] DATE CREATED AUTHOR AUTHOR'S ORGANIZ ATION 05/02/2025 [facility] Source Comments (unrecognize d section and content) In the event this informatio n is protected by the Federal Confidentiality of Alcohol and Drug Abuse Patient Records regulations: The Federal rules restrict any use of the information to criminally investigate or prosecute any alcohol or drug abuse patient.[facility] the event this information is protected by the Federal Confidentiality of Alcohol and Drug Abuse Patient Records regulations: The Federal rules restrict any use of the information to criminally investigate or prosecute any alcohol or drug abuse patient.[facility] Center[facility] the event this information is protected by the Federal Confidentiality of Alcohol and Drug Abuse Patient Records regulations: The Federal rules restrict any use of the information to criminally investigate or prosecute any alcohol or drug abuse patient.[facility] Center[facility] the event this information is protected by the Federal Confidentiality of Alcohol and Drug Abuse Patient Records regulations: The Federal rules restrict any use of the information to criminally investigate or prosecute any alcohol or drug abuse patient.[facility] Center[facility] the event this information is protected by the Federal Confidentiality of Alcohol and Drug Abuse Patient Records regulations: The Federal rules restrict any use of the information to criminally investigate or prosecute any alcohol or drug abuse patient.[facility] Center[facility] the event this information is protected by the Federal Confidentiality of Alcohol and Drug Abuse Patient Records regulations: The Federal rules restrict any use of the information to criminally investigate or prosecute any alcohol or drug abuse patient.[facility] Center[facility] the event this information is protected by the Federal Confidentiality of Alcohol and Drug Abuse Patient Records regulations: The Federal rules restrict any use of the information to criminally investigate or prosecute any alcohol or drug abuse patient.[facility] Center[facility] the event this information is protected by the Federal Confidentiality of Alcohol and Drug Abuse Patient Records regulations: The Federal rules restrict any use of the information to criminally investigate or prosecute any alcohol or drug abuse patient.[facility] CenterIn the event this information is protected by the Federal Confidentiality of Alcohol and Drug Abuse Patient Records regulations: The Federal rules restrict any use of the information to criminally investigate or prosecute any alcohol or drug abuse patient.[facility] CenterIn the event this information is protected by the Federal Confidentiality of Alcohol and Drug Abuse Patient Records regulations: The Federal rules restrict any use of the information to criminally investigate or prosecute any alcohol or drug abuse patient.[facility] CenterIn the event this information is protected by the Federal Confidentiality of Alcohol and Drug Abuse Patient Records regulations: The Federal rules restrict any use of the information to criminally investigate or prosecute any alcohol or drug abuse patient.[facility] CenterIn the event this information is protected by the Federal Confidentiality of Alcohol and Drug Abuse Patient Records regulations: The Federal rules restrict any use of the information to criminally investigate or prosecute any alcohol or drug abuse patient.[facility] CenterIn the event this information is protected by the Federal Confidentiality of Alcohol and Drug Abuse Patient Records regulations: The Federal rules restrict any use of the information to criminally investigate or prosecute any alcohol or drug abuse patient.[facility] CenterIn the event this information is protected by the Federal Confidentiality of Alcohol and Drug Abuse Patient Records regulations: The Federal rules restrict any use of the information to criminally investigate or prosecute any alcohol or drug abuse patient.[facility] CenterIn the event this information is protected by the Federal Confidentiality of Alcohol and Drug Abuse Patient Records regulations: The Federal rules restrict any use of the information to criminally investigate or prosecute any alcohol or drug abuse patient.[facility] CenterIn the event this information is protected by the Federal Confidentiality of Alcohol and Drug Abuse Patient Records regulations: The Federal rules restrict any use of the information to criminally investigate or prosecute any alcohol or drug abuse patient.[facility] CenterIn the event this information is protected by the Federal Confidentiality of Alcohol and Drug Abuse Patient Records regulations: The Federal rules restrict any use of the information to criminally investigate or prosecute any alcohol or drug abuse patient.[facility] CenterIn the event this information is protected by the Federal Confidentiality of Alcohol and Drug Abuse Patient Records regulations: The Federal rules restrict any use of the information to criminally investigate or prosecute any alcohol or drug abuse patient.[facility] CenterIn the event this information is protected by the Federal Confidentiality of Alcohol and Drug Abuse Patient Records regulations: The Federal rules restrict any use of the information to criminally investigate or prosecute any alcohol or drug abuse patient.[facility] CenterIn the event this information is protected by the Federal Confidentiality of Alcohol and Drug Abuse Patient Records regulations: The Federal rules restrict any use of the information to criminally investigate or prosecute any alcohol or drug abuse patient.[facility] CenterIn the event this information is protected by the Federal Confidentiality of Alcohol and Drug Abuse Patient Records regulations: The Federal rules restrict any use of the information to criminally investigate or prosecute any alcohol or drug abuse patient.[facility] CenterIn the event this information is protected by the Federal Confidentiality of Alcohol and Drug Abuse Patient Records regulations: The Federal rules restrict any use of the information to criminally investigate or prosecute any alcohol or drug abuse patient.[facility] CenterIn the event this information is protected by the Federal Confidentiality of Alcohol and Drug Abuse Patient Records regulations: The Federal rules restrict any use of the information to criminally investigate or prosecute any alcohol or drug abuse patient.[facility] CenterIn the event this information is protected by the Federal Confidentiality of Alcohol and Drug Abuse Patient Records regulations: The Federal rules restrict any use of the information to criminally investigate or prosecute any alcohol or drug abuse patient.[facility] CenterIn the event this information is protected by the Federal Confidentiality of Alcohol and Drug Abuse Patient Records regulations: The Federal rules restrict any use of the information to criminally investigate or prosecute any alcohol or drug abuse patient.[facility] CenterIn the event this information is protected by the Federal Confidentiality of Alcohol and Drug Abuse Patient Records regulations: The Federal rules restrict any use of the information to criminally investigate or prosecute any alcohol or drug abuse patient.[facility] CenterIn the event this information is protected by the Federal Confidentiality of Alcohol and Drug Abuse Patient Records regulations: The Federal rules restrict any use of the information to criminally investigate or prosecute any alcohol or drug abuse patient.[facility] CenterIn the event this information is protected by the Federal Confidentiality of Alcohol and Drug Abuse Patient Records regulations: The Federal rules restrict any use of the information to criminally investigate or prosecute any alcohol or drug abuse patient.[facility] CenterIn the event this information is protected by the Federal Confidentiality of Alcohol and Drug Abuse Patient Records regulations: The Federal rules restrict any use of the information to criminally investigate or prosecute any alcohol or drug abuse patient.[facility] CenterIn the event this information is protected by the Federal Confidentiality of Alcohol and Drug Abuse Patient Records regulations: The Federal rules restrict any use of the information to criminally investigate or prosecute any alcohol or drug abuse patient.[facility] Reason for Visit (unrecogniz ed section and content) Reason Comments 6 Month Exam Reason Comments Patient Question Reason Comments Blood Pressure Check Reason Comments Patient Update Results Reason Onset Date Comments Refill Request 05/08/2022 Reason Onset Date Comments Refill Request 05/11/2022 Reason Comments Blood Pressure Check Reason Comments Ear Pain R ear pain and press ure, cough x1 week Reason Onset Date Comments Refill Request 08/26/2022 Reason Comments 6 Month Exam Reason Comments Hypertension Specialty Diagnoses / Procedures Referred By Contac t Referred To Contact Family Medicine / FAMILY MEDICINE Diagnoses 6 month follow up/shingles Vacc Procedures 4C EST Self Blanco Araiza MD [address] [place] [address] Referral ID Status Reason Start Date Expiration Date V isits Requested Visits Authorized [id number] Closed Clearance Not Met -Financial Clearance Bypassed 03/23/2023 06/21/2023 1 1 Reason Comments Dizziness Reason Comments Results Reason Onset Date Comments Refill Request 12/12/2023 Reason Comments Follow Up Reason Comments PT Eval Specialty Diagnoses / Procedures Referred By Contac t Referred To Contact [facility] Diagnoses Vertigo Procedures CONSULT TO PHYSICAL THERAPY PHYSICAL THERAPY EVALUATION HIGH COMPLEX 45 MINS Blanco Araiza MD [address] [place] [address] [facility] [place] [address] [place] [address] Referral ID Status Reason Start Date Expiration Date Visits Requested Visits Authorized [id number] Authorized Auto-Generat ed Referral 01/23/2024 07/08/2024 99 99 Reason Onset Date Comments Refill Request 11/10/2024 Reason Comments Chart prep Reason Comments New Pain Reason Comments Physical Reason Comments Appointment Reason Onset Date Comments Refill Request 12/18/2024 Reason Comments Results - Mri Care Teams (unrecognized sec tion and content) Bobbin Washer Relationship Specialty Start Date End Date Blanco Araiza MD [address] [place] [address] PCP - General Family Practice 03/15/12 Bobbin Washer Relationship Specialty Start Date End Date Blanco Araiza MD [address] [place] [address] PCP - General Family Medicine 03/15/12 Bobbin Washer Relationship Specialty Start Date End Date Blanco Araiza MD [address] [place] [address] PCP - General Family Medicine 03/15/12 Bobbin Washer Relationship Specialty Start Date End Date Blanco Araiza MD [address] [place] [address] PCP - General Family Medicine 03/15/12 Bobbin Washer Relationship Specialty Start Date End Date Blanco Araiza MD [address] [place] [address] PCP - General Family Medicine 03/15/12 Bobbin Washer Relationship Specialty Start Date End Date Blanco Araiza MD [address] [place] [address] PCP - General Family Medicine 03/15/12 Bobbin Washer Relationship Specialty Start Date End Date Blanco Araiza MD [address] [place] [address] PCP - General Family Medicine 03/15/12 Bobbin Washer Relationship Specialty Start Date End Date Blanco Araiza MD [address] [place] [address] PCP - General Family Medicine 03/15/12 Bobbin Washer Relationship Specialty Start Date End Date Blanco Araiza MD [address] [place] [address] PCP - General Family Medicine 03/15/12 Bobbin Washer Relationship Specialty Start Date End Date Blanco Araiza MD [address] [place] [address] PCP - General Family Medicine 03/15/12 Bobbin Washer Relationship Specialty Start Date End Date Blanco Araiza MD [address] [place] [address] PCP - General Family Medicine 03/15/12 Bobbin Washer Relationship Specialty Start Date End Date Blanco Araiza MD [address] [place] [address] PCP - General Family Medicine 03/15/12 Bobbin Washer Relationship Specialty Start Date End Date Blanco Araiza MD [address] [place] [address] PCP - General Family Medicine 03/15/12 Bobbin Washer Relationship Specialty Start Date End Date Blanco Araiza MD [address] [place] [address] PCP - General Family Medicine 03/15/12 Bobbin Washer Relationship Specialty Start Date End Date Blanco Araiza MD [address] [place] [address] PCP - General Family Medicine 03/15/12 Bobbin Washer Relationship Specialty Start Date End Date Blanco Araiza MD [address] [place] [address] PCP - General Family Medicine 03/15/12 Bobbin Washer Relationship Specialty Start Date End Date Blanco Araiza MD [address] [place] [address] PCP - General Family Medicine 03/15/12 Bobbin Washer Relationship Specialty Start Date End Date Blanco Araiza MD [address] [place] [address] PCP - General Family Medicine 03/15/12 Myrna Shrestha APRN.CYBER DEFENSE ANALYST [address] [place] [address] Board Worker Family Medicine 06/16/24 Sarai Zuleta [employer].CYBER DEFENSE ANALYST [address] [place] [address] Board Worker Family Medicine 06/16/24 Bobbin Washer Relationship Specialty Start Date End Date Blanco Araiza MD [address] [place] [address] PCP - General Family Medicine 03/15/12 Myrna Shrestha [employer].CYBER DEFENSE ANALYST [address] [place] [address] Board Worker Family Medicine 06/16/24 Sarai Zuleta [employer].CYBER DEFENSE ANALYST [address] [place] [address] Board Worker Family Medicine 06/16/24 Bobbin Washer Relationship Specialty Start Date End Date Blanco Araiza MD [address] [place], [place] [address] PCP - General Family Medicine 03/15/12 Myrna Shrestha APRN.CYBER DEFENSE ANALYST [address] [place] [address] Board Worker Family Medicine 06/16/24 Sarai Zuleta APRN.CYBER DEFENSE ANALYST [address] [place] [address] Board Worker Family [facility] 06/16/24 Bobbin Washer Relationship Specialty Start Date End Date Blanco Araiza MD [address] [place], [place] [address] PCP - General Family Medicine 03/15/12 Myrna Shrestha APRN.CYBER DEFENSE ANALYST [address] [place] [address] Board Worker Family Medicine 06/16/24 Sarai Zuleta APRN.CYBER DEFENSE ANALYST [address] [place] [address] [facility]24 Bobbin Washer Relationship Specialty Start Date End Date Blanoc Araiza MD [address] [place] [address] PCP - General Family Medicine 03/15/12 Myrna Shrestha [employer].CYBER DEFENSE ANALYST [address] [place] [address] Board Worker Family Medicine 06/16/24 Sarai Zuleta [employer].CYBER DEFENSE ANALYST [address] [place], [place] [address] [phone] Board Worker Family Medicine 06/16/24 Bobbin Washer Relationship Specialty Start Date End Date Blanco Araiza MD [address] [place] [address] PCP - General Family Medicine 03/15/12 Myrna Shrestha APRN.CYBER DEFENSE ANALYST [address] [place] [address] [facility] 06/16/24 Sarai Zuleta APRN.CYBER DEFENSE ANALYST [address] [place] [address] [facility] 06/16/24 FOR RECORDS PERTAINING TO PATIENTS WHO ARE OR HAVE BEEN ENROLLED IN A CHEMICAL DEPENDENCY/SUBSTANCEABUSE PROGRAM, SOME INFORMATION MAY BE OMITTED. This clinical summary was aggregated from multiple sources. Caution should be exercised in using it in the provision of clinical care. This summary normalizes information from multiple sources, and as a consequence, information in this document may materially change the coding, format and clinical context of patient data. In addition, data may be omitted in some cases. CLINICAL DECISIONS SHOULD BE BASED ON THE PRIMARY CLINICAL RECORDS. [facility] [employer] provides no warranty or guarantee of the accuracy or completeness of information in this document.
--- NOTE | 2025-07-04 08:51 | CT_ITS ---
PROCEDURE: LOW DOSE CT LUNG SCREENING 07/04/2025 REASON FOR EXAM: Lung screening TECHNIQUE: Procedure Code: [id number] Modality: CT Procedure: LOW DOSE CT LUNG SCREENING Coronal and Sagittal reconstruction series were provided. One or more dose reduction techniques were used (e.g., Automated exposure control, adjustment of the mA and/or kV according to patient size, use of iterative reconstruction technique). REFERENCE LINK: [facility] Lung-RADS RADIATION DOSE SUMMARY: DLP: 100.43 mGycm COMPARISON: None available. FINDINGS: PULMONARY NODULES: (Only nodules >3mm are reported) Nodules described below are on series 2 unless otherwise specified. Pulmonary Nodules: Right lung apex 5.5 mm ground-glass nodule (image 34). Right upper lobe 5 mm pulmonary nodule (image 61). Right lower lobe subpleural 3 mm pulmonary nodule (image 111). Hardware:None. Lymph Nodes:No lymphadenopathy. Heart and Vasculature:The heart is mildly enlarged. No pericardial effusion.The thoracic aorta and main pulmonary artery are normal in caliber. Coronary Artery Calcifications: Present. Lungs and Airways: Emphysematous changes. Mild dependent atelectasis. The central airways are patent. Pleura:No pneumothorax or pleural effusion. Upper Abdomen:Unremarkable. Bones:No aggressive osseous lesion. T4 vertebral hemangioma. Degenerative changes of the thoracic spine. CT/Low Dose CT Lung Screening IMPRESSION: Multiple pulmonary nodules all measuring less than 6 mm. Coronary artery calcification (CAC) is present. Lung-RADS Category: 2 BENIGN (BASED ON IMAGING FEATURES OR INDOLENT BEHAVIOR). RECOMMEND 12-MONTH SCREENING LDCT. Reading Location: [id number]
== END | disposition home or self-care (01) ==
LOC: CT 08:45
PROVIDERS: PCP Family Medicine; Referring Provider Family Medicine; Visit Provider Family Medicine
DX: Z12.2 Encounter for screening for malignant neoplasm of respiratory organs (principal)
CPT/HCPCS: 71271